=== PATIENT | male | born 1940 | race Caucasian/White ===

== ENCOUNTER → 2016-12-04 | Outpatient (CLI) | payer MEDICARE, BC ==
--- NOTE | 2016-12-04 22:18 | CT ---
EXAMINATION TYPE: CT chest wo con DATE OF EXAM: 12/04/2016 7:39 PM COMPARISON: NONE HISTORY: Cough and congestion. CT DLP: 356.7 mGycm, Automated exposure control for dose reduction was used. CONTRAST: Performed injected with 0 mL of Omnipaque 300. TECHNIQUE: Axial images were obtained at 5 mm thick sections. Reconstructed images are reviewed on [employer] computer in the coronal plane. FINDINGS: Portion of the thyroid visualized is normal. There are small to moderate bilateral pleural effusions. Patchy infiltrates at the lung apices. There are scattered subcentimeter punctate nodules present bilaterally vendor representatives samples could includ e right middle lobe measuring 0.5 cm. Series 4 image 36 and lingula measuring 0.5 cm. Series 4 image 31. Esophagus appears patulous and air filled to the midthoracic level. There are multiple enlarged mediastinal lymph nodes present. Multiple small lymph nodes are in the s uperior mediastinum. Pretracheal lymph nodes appear to be the largest measuring 1.9 and 1.5 cm in siz e. Right peribronchial lymphadenopathy is present lack of intravenous contrast causes limitation on e valuation of this size. Subcarinal lymphadenopathy is present estimated at 1.5 cm. Note is made of coronary artery calcification. The ascending aorta diameter at the level of the main pulmonary artery is 3.9 cm. The main pulmonary artery diameter at the bifurcation is 2.[address] sections are obtained through the upper abdomen. Abdomen is essentially unremarkable. IMPRESSIONS: 1. Enlarged mediastinal adenopathy. Findings can be compatible with metastatic disease. 2. Patchy densities within the lung apices. Underlying neoplasm is not excluded at these levels. 3.Small bilateral pleural effusions with adjacent consolidations. Atelectasis or pneumonia and neopla sm could be considered. 4. Consider PET CT for additional evaluation.
== END | disposition home or self-care (01) ==
LOC: RADCTMAIN 19:05
PROVIDERS: ATTEND Family Medicine
DX: J90 Pleural effusion, not elsewhere classified (principal); R59.0 Localized enlarged lymph nodes; J98.4 Other disorders of lung
CPT/HCPCS: 71250

== ENCOUNTER → 2016-12-05 | Outpatient (CLI) | payer MEDICARE, BC | END | disposition home or self-care (01) | LOC: LABWHC1 09:56 | PROVIDERS: ATTEND Family Medicine | DX: E87.1 Hypo-osmolality and hyponatremia (principal) | CPT/HCPCS: 36415; 82088; 83930; 83935; 84300; 84588 ==

== ENCOUNTER 2016-12-07 07:20 | Inpatient (IN) | payer MEDICARE, BC ==
[2016-12-07] MEDS ORDERED: IPRATROPIUM 0.5 MG/2.5 ML NEBU INHALATION STA (07:43)
[2016-12-07] MEDS ORDERED: ALBUTEROL NEBULIZED 2.5 MG/3 ML INHALATION STA (07:43)
[2016-12-07] MEDS ORDERED: SODIUM CHLORIDE 0.9% 1,000 ML IV STA (07:43)
--- NOTE | 2016-12-07 07:45 | ED ---
General Adult HPI - General Chief complaint: Shortness of Breath Stated complaint: low O2 sent by Time Seen by Provider: 12/07/16 07:27 Source: patient, family, RN notes reviewed, old records reviewed Mode of arrival: wheelchair Limitations: no limitations - History of Present Illness Initial comments: This is a 76-year-old male to the ER for evaluation. This patient presents for evaluation of shortness of breath cough and congestion, severe respiratory distress. Patient brought in with severe hypoxia 60% on room air, patient recently diagnosed with pneumonia placed on oxygen but did not lock or the hospital. Patient is normally very stubborn but states his respirations status. Significantly worsened today. Patient has not been feeling well for about a week but denies chest pain. Patient is Care medical history including CA, - Related Data Home Medications Medication Instructions Recorded Confirmed Aspirin EC [Ecotrin Low Dose] 81 mg PO DAILY 12/07/16 12/07/16 Ferrous Sulfate [Feosol] 325 mg PO DIRECTED 12/07/16 12/07/16 Levothyroxine Sodium [Synthroid] 150 mcg PO DAILY 12/07/16 12/07/16 Ranitidine HCl [Zantac] 75 - 150 mg PO DAILY@1200 12/07/16 12/07/16 cloNIDine 0.2 MG/24HR PATCH 1 patch TRANSDERM MO 12/07/16 12/07/16 [Catapres-TTS] traZODone HCL [Desyrel] 100 mg PO HS PRN 12/07/16 12/07/16 Allergies Allergy/AdvReac Type Severity Reaction Status Date / Time codeine Allergy Unknown Verified 12/07/16 08:52 Review of Systems ROS Statement: Those systems with pertinent positive or pertinent negative responses have been documented in the HPI. ROS Other: All systems not noted in ROS Statement are negative. 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 Absent: scleral icterus, conjunctival injection, periorbital swelling ENT exam: Present: normal exam, mucous membranes moist Neck exam: Present: normal inspection. Absent: tenderness, meningismus, lymphadenopathy Respiratory exam: Present: respiratory distress, wheezes, rales, accessory muscle use, decreased breath sounds, prolonged expiratory. Absent: normal lung sounds bilaterally, rhonchi, stridor Cardiovascular Exam: Present: normal rhythm, tachycardia, normal heart sounds. Absent: systolic murmur, diastolic murmur, rubs, gallop, clicks GI/Abdominal exam: Present: soft, normal bowel sounds. Absent: distended, tenderness, guarding, rebound, rigid Extremities exam: Present: normal inspection, full ROM, normal capillary refill. Absent: tenderness, pedal edema, joint swelling, calf tenderness Back exam: Present: normal inspection Neurological exam: Present: alert, oriented X3, CN II-XII intact Psychiatric exam: Present: normal affect, normal mood Skin exam: Present: warm, dry, intact, normal color. 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 About a month of shortness of breath progressively worsening history of aspiration pneumonia. No known fevers, patient states he hasn't been feeling well, coughing up excessive sputum. Patient does have multifocal pneumonia, we treated with empiric broad-spectrum antibiotics, breathing treatments and monitoring of cardiopulmonary status post resuscitation status - Lab Data Result diagrams: 12/07/16 08:00 12/07/16 08:00 Lab Results 12/07/16 12/07/16 12/07/16 Range/Units 08:00 08:00 08:00 WBC 6.6 (3.8-10.6) k/uL RBC 4.07 L (4.30-5.90) m/uL Hgb 11.1 L (13.0-17.5) gm/dL Hct 32.5 L (39.0-53.0) % MCV 79.9 L (80.0-100.0) fL MCH 27.2 (25.0-35.0) pg MCHC 34.1 (31.0-37.0) g/dL RDW 15.6 H (11.5-15.5) % Plt Count 132 L (150-450) k/uL Neutrophils % 84 % Lymphocytes % 3 % Monocytes % 11 % Eosinophils % 0 % Basophils % 0 % Neutrophils # 5.6 (1.3-7.7) k/uL Lymphocytes # 0.2 L (1.0-4.8) k/uL Monocytes # 0.7 (0-1.0) k/uL Eosinophils # 0.0 (0-0.7) k/uL Basophils # 0.0 (0-0.2) k/uL PT (9.0-12.0) sec INR (<1.1) APTT (22.0-30.0) sec D-Dimer (<0.60) mg/L FEU Sodium 122 L (137-145) mmol/L Potassium 5.1 (3.5-5.1) mmol/L Chloride 86 L (98-107) mmol/L Carbon Dioxide 28 (22-30) mmol/L Anion Gap 8 mmol/L BUN 26 H (9-20) mg/dL Creatinine 0.58 L (0.66-1.25) mg/dL Est GFR (MDRD) Af Amer >60 (>60 ml/min/1.73 sqM) Est GFR (MDRD) Non-Af >60 (>60 ml/min/1.73 sqM) Glucose 150 H (74-99) mg/dL Calcium 8.4 (8.4-10.2) mg/dL Magnesium 1.6 (1.6-2.3) mg/dL Total Bilirubin 1.1 (0.2-1.3) mg/dL AST 26 (17-59) U/L ALT 25 (21-72) U/L Alkaline Phosphatase 76 (38-126) U/L Total Creatine Kinase 28 L (55-170) U/L CK-MB (CK-2) 1.8 (0.0-2.4) ng/mL CK-MB (CK-2) Rel Index 6.4 Troponin I 0.110 H* (0.000-0.034) ng/mL NT-Pro-B Natriuret Pep pg/mL Total Protein 6.5 (6.3-8.2) g/dL Albumin 3.3 L (3.5-5.0) g/dL 12/07/16 12/07/16 Range/Units 08:00 08:00 WBC (3.8-10.6) k/uL RBC (4.30-5.90) m/uL Hgb (13.0-17.5) gm/dL Hct (39.0-53.0) % MCV (80.0-100.0) fL MCH (25.0-35.0) pg MCHC (31.0-37.0) g/dL RDW (11.5-15.5) % Plt Count (150-450) k/uL Neutrophils % % Lymphocytes % % Monocytes % % Eosinophils % % Basophils % % Neutrophils # (1.3-7.7) k/uL Lymphocytes # (1.0-4.8) k/uL Monocytes # (0-1.0) k/uL Eosinophils # (0-0.7) k/uL Basophils # (0-0.2) k/uL PT 10.6 (9.0-12.0) sec INR 1.1 (<1.1) APTT 23.6 (22.0-30.0) sec D-Dimer 1.81 H (<0.60) mg/L FEU Sodium (137-145) mmol/L Potassium (3.5-5.1) mmol/L Chloride (98-107) mmol/L Carbon Dioxide (22-30) mmol/L Anion Gap mmol/L BUN (9-20) mg/dL Creatinine (0.66-1.25) mg/dL Est GFR (MDRD) Af Amer (>60 ml/min/1.73 sqM) Est GFR (MDRD) Non-Af (>60 ml/min/1.73 sqM) Glucose (74-99) mg/dL Calcium (8.4-10.2) mg/dL Magnesium (1.6-2.3) mg/dL Total Bilirubin (0.2-1.3) mg/dL AST (17-59) U/L ALT (21-72) U/L Alkaline Phosphatase (38-126) U/L Total Creatine Kinase (55-170) U/L CK-MB (CK-2) (0.0-2.4) ng/mL CK-MB (CK-2) Rel Index Troponin I (0.000-0.034) ng/mL NT-Pro-B Natriuret Pep 28733 pg/mL Total Protein (6.3-8.2) g/dL Albumin (3.5-5.0) g/dL - Radiology Data Radiology results: report reviewed (Chest x-ray shows positive pneumonitis, bilateral sufficient pulmonary edema as well as multifocal infiltrates, CTA is pending), image reviewed Critical Care Time Critical Care Time: Yes Total Critical Care Time: 31 Disposition Clinical Impression: Community acquired pneumonia, Acute exacerbation of chronic obstructive airways disease, Acute respiratory failure, Aspiration pneumonia, Hypoxia Disposition: ADMITTED IP TO THIS HOSP Condition: Serious Referrals: Abby Bal MD [Primary Care Provider] - 1-2 days
--- NOTE | 2016-12-07 08:11 | XR ---
EXAMINATION TYPE: XR chest 1V portable DATE OF EXAM: 12/07/2016 7:56 AM Comparison: CT 12/04/2016 Clinical History: 76 year-old male shortness of breath Findings: Heart remains upper limits of normal in size. There is increasing interstitial and patchy airspace op acity within the right greater than left lung. Dagcx-hp-oztoheth right and small left pleural effusio ns are also noted with adjacent density. Mild hyperinflation. Impression: Worsening interstitial and patchy airspace disease, right greater than left. Small to moderate right and small left pleural effusions also persist. Some differential considerations include multifocal pn eumonia, atypical mycobacterial and fungal infections, and inflammatory process such as worsening int erstitial pneumonitis. CHF can be excluded clinically.
[2016-12-07 08:20] LABS: Basophils % (A) 0 %; CH 26.6; CHCM 33.5; Eosinophils % (A) 0 %; HCT 32.5 % (39.0-53.0); HDW 3.38; HGB 11.1 gm/dL (13.0-17.5); Luc % (Auto) 2; Lymphocytes # (A) 0.2 k/uL (1.0-4.8); Lymphocytes % (A) 3 %; MCH 27.2 pg (25.0-35.0); MCHC 34.1 g/dL (31.0-37.0); MCV 79.9 fL (80.0-100.0); Mean Platelet Volume 7.2; Monocytes # (A) 0.7 k/uL (0-1.0); Monocytes % (A) 11 %; Neutrophils # (A) 5.6 k/uL (1.3-7.7); Neutrophils % (A) 84 %; RBC 4.07 m/uL (4.30-5.90); RDW 15.6 % (11.5-15.5); WBC 6.6 k/uL (3.8-10.6); WBC (Perox) 6.75
[2016-12-07 08:31] LABS: ALT 25 U/L (21-72); AST 26 U/L (17-59); Alkaline Phosphatase 76 U/L (38-126); Anion Gap 8 mmol/L; Blood Urea Nitrogen 26 mg/dL (9-20); Calcium 8.4 mg/dL (8.4-10.2); Carbon Dioxide 28 mmol/L (22-30); Chloride 86 mmol/L (98-107); Glucose 150 mg/dL (74-99); Magnesium 1.6 mg/dL (1.6-2.3); Non-African American GFR(MDRD) >60 (>60 ml/min/1.73 sqM); Potassium 5.1 mmol/L (3.5-5.1); Sodium 122 mmol/L (137-145); Total Bilirubin 1.1 mg/dL (0.2-1.3); Total Protein 6.5 g/dL (6.3-8.2)
[2016-12-07 08:36] LABS: INR 1.1 (<1.1); Partial Thromboplastin Time 23.6 sec (22.0-30.0); Prothrombin Time 10.6 sec (9.0-12.0)
[2016-12-07] MEDS ORDERED: RX INFO: IV CONTRAST WAS GIVEN 1 EACH MISC MISCELLANE PRN (08:49)
[2016-12-07] MEDS ORDERED: LEVOFLOXACIN 750MG-D5W PMX 750 MG in DEXTROSE/WATER 1 150ML.BAG IVPB STA (08:50)
[2016-12-07] MEDS ORDERED: PIPERACILLIN-TAZOBACTAM 3.375 GM in DEXTROSE/WATER 1 50ML.BAG IVPB STA (08:50)
[2016-12-07 08:58] LABS: Creatine Kinase MB 1.8 ng/mL (0.0-2.4)
[2016-12-07 09:00] LABS: Troponin I 0.11 ng/mL (0.000-0.034)
[2016-12-07] MEDS ORDERED: PNEUMONIA PROTOCOL UTILIZED 1 EACH MISC PO PRN (09:15)
[2016-12-07] MEDS ORDERED: MORPHINE SULFATE 4 MG/ML SYRINGE IVP STA (10:01)
--- NOTE | 2016-12-07 10:36 | CT ---
EXAMINATION TYPE: CT angio chest DATE OF EXAM: 12/07/2016 9:54 AM COMPARISON: Prior CT chest without contrast December 04, 2016 HISTORY: Low O2 level with pain in lungs CT DLP: 307.6 mGycm. Automated Exposure Control for Dose Reduction was Utilized. CONTRAST: CTA scan of the thorax is performed with IV Contrast, patient injected with 96 mL of Omnipaque 350, p ulmonary embolism protocol. MIP Images are created on CT scanner and reviewed. FINDINGS: LUNGS: There is persistent small to moderate-sized right and small left sided pleural effusion. There is associated atelectasis and/or consolidation in both lung bases redemonstrated. Effusions do not c ompletely layer dependently especially on the right similar to prior study Is patent. There is increa sing predominantly central multifocal groundglass opacity in bilateral upper lobes noted since prior study. Slightly more prominent increased interstitial markings are seen bilaterally suspect component of edema MEDIASTINUM: There is satisfactory enhancement of the pulmonary artery and its branches, there is no CT evidence for pulmonary embolism. There are persistent enlarged thoracic lymph nodes. There is rig ht paratracheal lymph node measuring 2.1 x 1.4 cm on axial image 55 that is stable for reference. The se may reactive in etiology, neoplastic etiology is not excluded. No significant pericardial effusion is seen. There is mild cardiomegaly redemonstrated aneurysmal norman nge to the ascending aorta measures 4.8 cm in diameter on axial image [address] udy. Moderate calcified atherosclerotic change is redemonstrated. Upper esophagus is slightly promine nt with air-fluid level. Coronary artery calcification redemonstrated OTHER: Osseous structures are somewhat demineralized. Multilevel spurring in the spine is present. IMPRESSION: 1. No CT evidence for pulmonary embolism. 2. Small to moderate sized bilateral pleural effusions redemonstrated, component of CHF exacerbation not excluded. 3. Interstitial edema bilaterally with worsening multifocal groundglass opacity particularly central upper lung is suggesting worsening edema and/or infiltrates. Clinical correlation advised.
[2016-12-07] MEDS: IPRATROPIUM-ALBUTEROL 3 ML NEB INHALATION SCH ×3 (11:37→19:58)
[2016-12-07] MEDS ORDERED: IPRATROPIUM-ALBUTEROL 3 ML NEB INHALATION PRN (14:25)
--- NOTE | 2016-12-07 14:27 | P.HPIM ---
History of Present Illness H&P Date: 12/07/16 Chief Complaint: Shortness of breath This is a 76-year-old male, patient of Dr. Avina. 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 He also has a history of hypertension hypothyroidism GERD and iron deficiency anemia. Due to his epiglottis cancer patient does require tube feedings and those will be restarted. Patient has had multiple episodes of pneumonia. He's had 8 episodes pneumonia within the last 2 years. Patient was diagnosed with pneumonia on the outpatient setting couple weeks ago he underwent treatment of Cipro for 10 days and then was started on a Z-Andrew. Patient also did require to be placed on home oxygen and this was started yesterday. Initially started with 2 L. However patient's oxygen saturation was down in the around 60%. And she came into the emergency room for further evaluation and treatment. In the emergency room patient's oxygen saturation was 60% on room air. He's currently on 6 L nasal cannula standing and 95%. Chest x-ray had shown worsening patchy airspace disease right greater than the left a small to moderate right pleural effusion. He did have a CTA of the chest which was negative for PE and showed small to moderate-sized pleural effusions bilaterally. Also interstitial edema bilaterally with worsening multifocal groundglass opacity particularly central upper lung suggestive of worsening edema and or infiltrates. Patient has been started on Levaquin and Zosyn for pneumonia. Cardiology and pulmonary service have been consulted. BNP level was elevated at 17,800. Patient reports that his family doctor was going to start him on Lasix outpatient. However he was not able to start that medication. Sodium level of 122 patient reports having low sodium level in the outpatient setting recently. Patient admits to having a productive cough especially in the morning. Denies any nausea or vomiting. Denies any chills or sweats. Denies any bowel movement changes or urinary symptoms. Patient states he had an evaluation by Dr. Dean the urologist in regards to elevated PSA level there is concerns that his cancer is now moved to the prostate. And they're setting up appointment outpatient for a biopsy. 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 Past Psychological History: No Psychological Hx Reported Additional Psychological History / Comment(s): Pt resides with his spouse. He uses no assistive device. He drives. His spouse manages his medication. Smoking Status: Former smoker Past Alcohol Use History: None Reported Additional Past Alcohol Use History / Comment(s): Pt started smoking in 1951 and quit in 2001. Past Drug Use History: None Reported - Past Family History Mother Family Medical History: No Reported History Additional Family Medical History / Comment(s): Mother was healthy and lived to be 89yrs old. Father Additional Family Medical History / Comment(s): Father was healthy until he fractured his hip in his 70's. Medications and Allergies Home Medications Medication Instructions Recorded Confirmed Type Aspirin EC [Ecotrin Low Dose] 81 mg PO DAILY 12/07/16 12/07/16 History Ferrous Sulfate [Feosol] 325 mg PO DIRECTED 12/07/16 12/07/16 History Levothyroxine Sodium [Synthroid] 150 mcg PO DAILY 12/07/16 12/07/16 History Ranitidine HCl [Zantac] 75 - 150 mg PO DAILY@1200 12/07/16 12/07/16 History cloNIDine 0.2 MG/24HR PATCH 1 patch TRANSDERM MO 12/07/16 12/07/16 History [Catapres-TTS] traZODone HCL [Desyrel] 100 mg PO HS PRN 12/07/16 12/07/16 History Allergies Allergy/AdvReac Type Severity Reaction Status Date / Time codeine Allergy Unknown Verified 12/07/16 08:52 Physical Exam Vitals: Vital Signs Temp Pulse Pulse Resp BP BP Pulse Ox 12/07/16 12:00 96.9 F L 93 16 182/79 93 L 12/07/16 11:47 108 H 12/07/16 11:37 98 95 12/07/16 10:31 98.0 F 12/07/16 10:28 104 H 18 163/72 95 12/07/16 09:03 98.4 F 106 H 18 185/79 93 L 12/07/16 08:47 110 H 12/07/16 08:43 110 H 18 196/88 95 12/07/16 08:33 108 H 12/07/16 08:15 102 H 12/07/16 07:45 20 12/07/16 07:41 118 H 18 199/88 91 L 12/07/16 07:26 99.0 F 115 H 24 128/60 68 L Intake and Output 12/06/16 12/07/16 12/07/16 22:59 06:59 14:59 Other: Weight 73.936 kg Patient Weight 12/08/16 06:59 Weight 73.936 kg Head normocephalic Neck supple Lungs crackles at bases bilaterally with coarse breath sounds on the left diminished bilaterally at the upper lung auguste Heart regular rate and rhythm S1-S2, no rub or gallop Abdomen is soft nontender nondistended positive bowel sounds no hepatosplenomegaly Extremities no edema Neuro alert and orientated to 3 Results CBC & Chem 7: 12/07/16 08:00 12/07/16 08:00 Labs: Abnormal Lab Results - Last 24 Hours (Table) 12/07/16 12/07/16 12/07/16 Range/Units 08:00 08:00 08:00 RBC 4.07 L (4.30-5.90) m/uL Hgb 11.1 L (13.0-17.5) gm/dL Hct 32.5 L (39.0-53.0) % MCV 79.9 L (80.0-100.0) fL RDW 15.6 H (11.5-15.5) % Plt Count 132 L (150-450) k/uL Lymphocytes # 0.2 L (1.0-4.8) k/uL D-Dimer (<0.60) mg/L FEU Sodium 122 L (137-145) mmol/L Chloride 86 L (98-107) mmol/L BUN 26 H (9-20) mg/dL Creatinine 0.58 L (0.66-1.25) mg/dL Glucose 150 H (74-99) mg/dL Total Creatine Kinase 28 L (55-170) U/L Troponin I 0.110 H* (0.000-0.034) ng/mL Albumin 3.3 L (3.5-5.0) g/dL 12/07/16 Range/Units 08:00 RBC (4.30-5.90) m/uL Hgb (13.0-17.5) gm/dL Hct (39.0-53.0) % MCV (80.0-100.0) fL RDW (11.5-15.5) % Plt Count (150-450) k/uL Lymphocytes # (1.0-4.8) k/uL D-Dimer 1.81 H (<0.60) mg/L FEU Sodium (137-145) mmol/L Chloride (98-107) mmol/L BUN (9-20) mg/dL Creatinine (0.66-1.25) mg/dL Glucose (74-99) mg/dL Total Creatine Kinase (55-170) U/L Troponin I (0.000-0.034) ng/mL Albumin (3.5-5.0) g/dL Thrombosis Risk Factor Assmnt - Choose All That Apply Any of the Below Risk Factors Present?: Yes Each Factor Represents 1 point: Serious lung disease incl. pneumonia (< 1month) Other Risk Factors: Yes Each Risk Factor Represents 2 Points: Malignancy Each Risk Factor Represents 3 Points: Age 75 years or older Other congenital or acquired thrombophilia - If yes, enter type in comment: No Thrombosis Risk Factor Assessment Total Risk Factor Score: 6 Thrombosis Risk Factor Assessment Level: High Risk Assessment and Plan Plan: 1. Acute hypoxic respiratory failure with oxygen saturation at 60% on room air. Currently on 6 L sating at 95%. Likely secondary to pneumonia and CHF exacerbation. CTA was negative for PE. Did show interstitial edema bilaterally worsening multifocal groundglass opacity particularly central upper lung suggesting worsening edema and/or infiltrate. Pulmonary service and cardiology have been consulted. Continue nebulizer treatments. Patient was started on Levaquin and Zosyn. Check sputum culture. 2. Acute CHF exacerbation: Check echo. BNP elevated at 17,800. Patient was started on IV Lasix 3. Hyponatremia sodium 122 on admission: Repeat labs in a.m. and monitor closely 4. 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 Elevated troponin on admission no chest pain. Cardiology will be consulted. Troponin 0.110 EKG had shown sinus tachycardia with PVCs heart rate 116 6. Iron deficiency anemia resume iron supplement 7. Essential hypertension: With accelerated hypertension. Catapres patch has been restarted. The patient will be started on Lasix 8. Hypothyroidism continue Synthroid 9. Elevated PSA level around 14 an outpatient setting. Patient is followed up with urology and they're planning to proceed with biopsy of the prostate at the end of November 29. Nutrition: continue patient's tube feedings. dietitian will be consulted GI prophylaxis Pepcid and DVT prophylaxis Lovenox Time with Patient: Greater than 30 (Greater than 50% of the total time spent in counseling and coordination of care.I performed an examination of the patient and discussed their management with the physician Construction Equipment Mechanic. I have reviewed the Physician Construction Equipment Mechanic's notes and agree with the documented findings and plan of care)
--- NOTE | 2016-12-07 16:03 | P.CNPUL ---
History of Present Illness Consult date: 12/07/16 Reason for consult: hypoxemia, abnormal CXR/CT Chief complaint: Hypoxemia History of present illness: This is a 76-year-old gentleman who presented to the emergency department complaining of shortness of breath and low oxygen. The patient states he is normally on 2 L nasal cannula around the clock at baseline. He states he went and saw his primary care physician for shortness of breath and his O2 saturation was in the 50s. A chest x-ray was done and the patient was told he has "bilateral pneumonia." He was sent to the hospital for further evaluation. The patient denies a history of asthma. He does have a questionable history of COPD. The patient states he had a pulmonary function test done many years ago. He does have a history of esophageal cancer and had chemo and radiation. He does have a PEG tube due to dysphagia. He denies fevers or chills at home. He states he did have some phlegm which was yellow-green in color. He denied a cough. The patient denies any recent aspiration episodes. He states in the past before the PEG tube he did have multiple episodes of aspiration pneumonia. He is also being worked up through his primary care physician for possible prostate cancer. 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 Past Psychological History: No Psychological Hx Reported Additional Psychological History / Comment(s): Pt resides with his spouse. He uses no assistive device. He drives. His spouse manages his medication. Smoking Status: Former smoker Past Alcohol Use History: None Reported Additional Past Alcohol Use History / Comment(s): Pt started smoking in 1952 and quit in 2001. Past Drug Use History: None Reported - Past Family History Mother Family Medical History: No Reported History Additional Family Medical History / Comment(s): Mother was healthy and lived to be 89yrs old. Father Additional Family Medical History / Comment(s): Father was healthy until he fractured his hip in his 70's. Medications and Allergies Home Medications Medication Instructions Recorded Confirmed Type Aspirin EC [Ecotrin Low Dose] 81 mg PO DAILY 12/07/16 12/07/16 History Ferrous Sulfate [Feosol] 325 mg PO DIRECTED 12/07/16 12/07/16 History Levothyroxine Sodium [Synthroid] 150 mcg PO DAILY 12/07/16 12/07/16 History Ranitidine HCl [Zantac] 75 - 150 mg PO DAILY@1200 12/07/16 12/07/16 History cloNIDine 0.2 MG/24HR PATCH 1 patch TRANSDERM MO 12/07/16 12/07/16 History [Catapres-TTS] traZODone HCL [Desyrel] 100 mg PO HS PRN 12/07/16 12/07/16 History Allergies Allergy/AdvReac Type Severity Reaction Status Date / Time codeine Allergy Unknown Verified 12/07/16 08:52 Physical Exam Osteopathic Statement: *. No significant issues noted on an osteopathic structural exam other than those noted in the History and Physical/Consult. Vitals: Vital Signs Temp Pulse Pulse Resp BP BP Pulse Ox 12/07/16 12:00 96.9 F L 93 16 182/79 93 L 12/07/16 11:47 108 H 12/07/16 11:37 98 95 12/07/16 10:31 98.0 F 12/07/16 10:28 104 H 18 163/72 95 12/07/16 09:03 98.4 F 106 H 18 185/79 93 L 12/07/16 08:47 110 H 12/07/16 08:43 110 H 18 196/88 95 12/07/16 08:33 108 H 12/07/16 08:15 102 H 12/07/16 07:45 20 12/07/16 07:41 118 H 18 199/88 91 L 12/07/16 07:26 99.0 F 115 H 24 128/60 68 L Intake and Output 12/07/16 12/07/16 12/07/16 06:59 14:59 22:59 Output Total 590 Balance -590 Output: Urine 590 Other: Weight 73.936 kg Patient Weight 12/08/16 06:59 Weight 73.936 kg Gen.: Patient is alert and oriented 3, no acute distress Cardiovascular: Regular rate and rhythm, S1/S2 Lungs: Coarse breath sounds bilaterally Abdomen: Soft nontender nondistended positive bowel sounds, + PEG tube Extremities: Trace edema Results - Laboratory Findings CBC and BMP: 12/07/16 08:00 12/07/16 08:00 PT/INR, D-dimer PT 10.6 sec (9.0-12.0) 12/07/16 08:00 INR 1.1 (<1.1) 12/07/16 08:00 D-Dimer 1.81 mg/L FEU (<0.60) H 12/07/16 08:00 Abnormal lab findings: Abnormal Labs 12/07/16 12/07/16 12/07/16 08:00 08:00 08:00 RBC 4.07 L Hgb 11.1 L Hct 32.5 L MCV 79.9 L RDW 15.6 H Plt Count 132 L Lymphocytes # 0.2 L D-Dimer Sodium 122 L Chloride 86 L BUN 26 H Creatinine 0.58 L Glucose 150 H Total Creatine Kinase 28 L Troponin I 0.110 H* Albumin 3.3 L 12/07/16 08:00 RBC Hgb Hct MCV RDW Plt Count Lymphocytes # D-Dimer 1.81 H Sodium Chloride BUN Creatinine Glucose Total Creatine Kinase Troponin I Albumin - Diagnostic Findings Chest x-ray: report reviewed, image reviewed CT scan - chest: report reviewed, image reviewed Assessment and Plan Plan: Acute on chronic hypoxic respiratory failure Abnormal CT of the chest, bilateral infiltrates, pneumonitis versus edema versus atypical pneumonia Dysphagia, status post PEG tube History of esophageal cancer, status post chemo and radiation Hyponatremia Elevated troponins Anemia History of tobacco abuse Elevated PSA, ongoing outpatient workup for possible prostate cancer O2 to maintain saturation greater than equal to 88% Antibiotics: Levaquin, Zosyn Solu-Medrol Bronchodilators and Pulmicort Aspiration precautions Sputum, blood, urine cultures IgE, HP panel Diuresis Check echocardiogram Serial chest x-rays Check Legionella, mycoplasma, influenza Consult Dr. Richey per family request for PEG tube issues GI and DVT prophylaxis Repeat CT in 4-6 weeks to ensure clearance, if not clearning, patient may need bronchoscopy. PET scan is not recommended at this time as it is common to have false positive with acute inflammation. Incentive spirometry and pulmonary hygiene Thank you for this consultation we'll continue to follow along
[2016-12-07] MEDS: PIPERACILLIN-TAZOBACTAM 3.375 GM in DEXTROSE/WATER 1 50ML.BAG IVPB SCH (16:26)
[2016-12-07] MEDS: INSULIN LISPRO (humaLOG) 300 UNIT/3 ML VIAL SQ SCH ×2 (17:21→22:12)
[2016-12-07] MEDS: MORPHINE SULFATE 2 MG/ML SYRINGE IVP PRN (17:24)
[2016-12-07] MEDS: methylPREDNISolone SOD SUCCI 40 MG/ML 1 ML VIAL IV SCH (17:25)
[2016-12-07] MEDS: LEVOTHYROXINE 75 MCG TAB PO SCH ×2 (17:26→18:23)
--- NOTE | 2016-12-07 17:30 | P.GSCN ---
History of Present Illness Consult date: 12/07/16 Reason for Consult: Malnutrition History of present illness: Patient is well-known to our service. He is currently scheduled for PEG tube change next week. The patient was admitted with respiratory failure. He is doing better at this time. We were asked to see the patient to evaluate his PEG tube. It is functioning okay but is looking friable and is due for change. 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 Past Psychological History: No Psychological Hx Reported Additional Psychological History / Comment(s): Pt resides with his spouse. He uses no assistive device. He drives. His spouse manages his medication. Smoking Status: Former smoker Past Alcohol Use History: None Reported Additional Past Alcohol Use History / Comment(s): Pt started smoking in 1952 and quit in 2001. Past Drug Use History: None Reported - Past Family History Mother Family Medical History: No Reported History Additional Family Medical History / Comment(s): Mother was healthy and lived to be 89yrs old. Father Additional Family Medical History / Comment(s): Father was healthy until he fractured his hip in his 70's. Medications and Allergies Home Medications Medication Instructions Recorded Confirmed Type Aspirin EC [Ecotrin Low Dose] 81 mg PO DAILY 12/07/16 12/07/16 History Ferrous Sulfate [Feosol] 325 mg PO DIRECTED 12/07/16 12/07/16 History Levothyroxine Sodium [Synthroid] 150 mcg PO DAILY 12/07/16 12/07/16 History Ranitidine HCl [Zantac] 75 - 150 mg PO DAILY@1200 12/07/16 12/07/16 History cloNIDine 0.2 MG/24HR PATCH 1 patch TRANSDERM MO 12/07/16 12/07/16 History [Catapres-TTS] traZODone HCL [Desyrel] 100 mg PO HS PRN 12/07/16 12/07/16 History Allergies Allergy/AdvReac Type Severity Reaction Status Date / Time codeine Allergy Unknown Verified 12/07/16 08:52 Surgical - Exam Vital Signs Temp Pulse Resp BP Pulse Ox 99.0 F 115 H 24 128/60 68 L 12/07/16 07:26 12/07/16 07:26 12/07/16 07:26 12/07/16 07:26 12/07/16 07:26 Physical exam: General: Well-developed, well-nourished HEENT: Normocephalic, sclerae nonicteric Abdomen: Nontender, nondistended, PEG tube intact Extremities: No edema Neuro: Alert and oriented Results - Labs 12/07/16 08:00 12/07/16 08:00 Abnormal Lab Results - Last 24 Hours (Table) 12/07/16 12/07/16 12/07/16 Range/Units 08:00 08:00 08:00 RBC 4.07 L (4.30-5.90) m/uL Hgb 11.1 L (13.0-17.5) gm/dL Hct 32.5 L (39.0-53.0) % MCV 79.9 L (80.0-100.0) fL RDW 15.6 H (11.5-15.5) % Plt Count 132 L (150-450) k/uL Lymphocytes # 0.2 L (1.0-4.8) k/uL D-Dimer (<0.60) mg/L FEU Sodium 122 L (137-145) mmol/L Chloride 86 L (98-107) mmol/L BUN 26 H (9-20) mg/dL Creatinine 0.58 L (0.66-1.25) mg/dL Glucose 150 H (74-99) mg/dL Total Creatine Kinase 28 L (55-170) U/L Troponin I 0.110 H* (0.000-0.034) ng/mL Albumin 3.3 L (3.5-5.0) g/dL 12/07/16 Range/Units 08:00 RBC (4.30-5.90) m/uL Hgb (13.0-17.5) gm/dL Hct (39.0-53.0) % MCV (80.0-100.0) fL RDW (11.5-15.5) % Plt Count (150-450) k/uL Lymphocytes # (1.0-4.8) k/uL D-Dimer 1.81 H (<0.60) mg/L FEU Sodium (137-145) mmol/L Chloride (98-107) mmol/L BUN (9-20) mg/dL Creatinine (0.66-1.25) mg/dL Glucose (74-99) mg/dL Total Creatine Kinase (55-170) U/L Troponin I (0.000-0.034) ng/mL Albumin (3.5-5.0) g/dL Diabetes panel 12/07/16 Range/Units 08:00 Sodium 122 L (137-145) mmol/L Potassium 5.1 (3.5-5.1) mmol/L Chloride 86 L (98-107) mmol/L Carbon Dioxide 28 (22-30) mmol/L BUN 26 H (9-20) mg/dL Creatinine 0.58 L (0.66-1.25) mg/dL Glucose 150 H (74-99) mg/dL Calcium 8.4 (8.4-10.2) mg/dL AST 26 (17-59) U/L ALT 25 (21-72) U/L Alkaline Phosphatase 76 (38-126) U/L Total Protein 6.5 (6.3-8.2) g/dL Albumin 3.3 L (3.5-5.0) g/dL Calcium panel 12/07/16 Range/Units 08:00 Calcium 8.4 (8.4-10.2) mg/dL Albumin 3.3 L (3.5-5.0) g/dL Pituitary panel 12/07/16 Range/Units 08:00 Sodium 122 L (137-145) mmol/L Potassium 5.1 (3.5-5.1) mmol/L Chloride 86 L (98-107) mmol/L Carbon Dioxide 28 (22-30) mmol/L BUN 26 H (9-20) mg/dL Creatinine 0.58 L (0.66-1.25) mg/dL Glucose 150 H (74-99) mg/dL Calcium 8.4 (8.4-10.2) mg/dL Adrenal panel 12/07/16 Range/Units 08:00 Sodium 122 L (137-145) mmol/L Potassium 5.1 (3.5-5.1) mmol/L Chloride 86 L (98-107) mmol/L Carbon Dioxide 28 (22-30) mmol/L BUN 26 H (9-20) mg/dL Creatinine 0.58 L (0.66-1.25) mg/dL Glucose 150 H (74-99) mg/dL Calcium 8.4 (8.4-10.2) mg/dL Total Bilirubin 1.1 (0.2-1.3) mg/dL AST 26 (17-59) U/L ALT 25 (21-72) U/L Alkaline Phosphatase 76 (38-126) U/L Total Protein 6.5 (6.3-8.2) g/dL Albumin 3.3 L (3.5-5.0) g/dL Assessment and Plan (1) Malnutrition Narrative/Plan: Will discuss with pulmonary regarding changing the patient's PEG tube while he is still hospitalized. Continue pulmonary support. Status: Acute
[2016-12-07 18:51] LABS: Hemoglobin A1C 5.5 % (4.2-6.1)
[2016-12-07] MEDS: BUDESONIDE 0.5 MG/2 ML NEBU INHALATION SCH (19:57)
[2016-12-07] MEDS: traZODone HCL 100 MG TAB PO PRN (21:49)
[2016-12-07] MEDS: guaiFENesin 600 MG TABLET.ER PO SCH (21:49)
[2016-12-07] MEDS: FUROSEMIDE 10 MG/ML 4 ML VIAL IV SCH (21:50)
[2016-12-07 22:19] LABS: Glucose,Whole Blood 173 mg/dL (75-99)
[2016-12-08] MEDS: PIPERACILLIN-TAZOBACTAM 3.375 GM in DEXTROSE/WATER 1 50ML.BAG IVPB SCH ×4 (00:24→23:40)
[2016-12-08] MEDS: methylPREDNISolone SOD SUCCI 40 MG/ML 1 ML VIAL IV SCH ×2 (00:24→08:09)
[2016-12-08] MEDS ORDERED: amLODIPine 5 MG TAB PO ONE (05:30)
[2016-12-08 06:19] LABS: Mycoplasma IgG Antibody (EIA) 0.74 INDEX (<=0.90); Mycoplasma IgM Antibody 0.14 INDEX (<=0.90)
[2016-12-08 06:50] LABS: Glucose,Whole Blood 191 mg/dL (75-99)
[2016-12-08 07:14] LABS: Basophils % (A) 0 %; CH 26.4; Eosinophils % (A) 0 %; HCT 35.7 % (39.0-53.0); HDW 3.32; HGB 11.4 gm/dL (13.0-17.5); Hypochromasia Slight; Luc # (Auto) 0.03; Luc % (Auto) 1; Lymphocytes # (A) 0.1 k/uL (1.0-4.8); Lymphocytes % (A) 2 %; MCH 26.5 pg (25.0-35.0); MCHC 31.9 g/dL (31.0-37.0); MCV 83.1 fL (80.0-100.0); Mean Platelet Volume 7.5; Monocytes # (A) 0.3 k/uL (0-1.0); Monocytes % (A) 6 %; Neutrophils # (A) 5.2 k/uL (1.3-7.7); Neutrophils % (A) 91 %; RDW 15.3 % (11.5-15.5); WBC 5.7 k/uL (3.8-10.6); WBC (Perox) 5.63
[2016-12-08 07:34] LABS: ALT 27 U/L (21-72); AST 30 U/L (17-59); Alkaline Phosphatase 73 U/L (38-126); Anion Gap 10 mmol/L; Blood Urea Nitrogen 25 mg/dL (9-20); Calcium 8.3 mg/dL (8.4-10.2); Carbon Dioxide 29 mmol/L (22-30); Chloride 87 mmol/L (98-107); Glucose 235 mg/dL (74-99); Non-African American GFR(MDRD) >60 (>60 ml/min/1.73 sqM); Potassium 4.7 mmol/L (3.5-5.1); Sodium 126 mmol/L (137-145); Total Bilirubin 1.2 mg/dL (0.2-1.3); Total Protein 6.5 g/dL (6.3-8.2)
[2016-12-08] MEDS: INSULIN LISPRO (humaLOG) 300 UNIT/3 ML VIAL SQ SCH ×4 (07:37→23:38)
--- NOTE | 2016-12-08 07:58 | XR ---
EXAMINATION TYPE: XR chest 2V DATE OF EXAM: 12/08/2016 7:32 AM COMPARISON: NONE INDICATION: Pneumonia TECHNIQUE: Single frontal view of the chest is obtained. FINDINGS: The heart size is normal. The pulmonary vasculature is prominent. There is diffuse increased infiltrates present bilaterally. Small pleural effusions may be present. F indings are stable from the comparison. IMPRESSION: 1. Bilateral lung infiltrates. Correlate for pulmonary edema and congestive heart failure. Pneumonia is within the differential.
[2016-12-08] MEDS: FUROSEMIDE 10 MG/ML 4 ML VIAL IV SCH ×3 (08:10→23:40)
[2016-12-08] MEDS: guaiFENesin 600 MG TABLET.ER PO SCH ×2 (08:10→21:04)
[2016-12-08] MEDS: ASPIRIN 81 MG CHEW PO SCH (08:10)
[2016-12-08] MEDS: FAMOTIDINE 20 MG TAB PO SCH (08:10)
[2016-12-08] MEDS: FERROUS SULFATE 325 MG TAB PO SCH (08:10)
[2016-12-08] MEDS: IPRATROPIUM-ALBUTEROL 3 ML NEB INHALATION SCH ×2 (08:47→11:55)
[2016-12-08] MEDS: BUDESONIDE 0.5 MG/2 ML NEBU INHALATION SCH ×2 (08:47→19:45)
[2016-12-08] MEDS ORDERED: amLODIPine 5 MG TAB PO SCH (09:00)
[2016-12-08] MEDS ORDERED: ENOXAPARIN 40 MG/0.4 ML SYRINGE SQ SCH (09:00)
[2016-12-08] MEDS: MORPHINE SULFATE 2 MG/ML SYRINGE IVP PRN (09:11)
--- NOTE | 2016-12-08 09:53 | ECHOF ---
Referral Reason:check EF MEASUREMENTS -------- HEIGHT: 180.3 cm WEIGHT: 73.9 kg BP: 182/79 RVIDd: 2.7 cm (< 3.3) IVSd: 1.4 cm (0.6 - 1.1) LVIDd: 4.7 cm (3.9 - 5.3) LVPWd: 1.4 cm (0.6 - 1.1) IVSs: 1.6 cm LVIDs: 3.8 cm LVPWs: 1.7 cm LA Diam: 3.0 cm (2.7 - 3.8) Ao Diam: 4.1 cm (2.0 - 3.7) AV Cusp: 1.8 cm (1.5 - 2.6) LA Diam: 2.9 cm (2.7 - 3.8) MV EXCURSION: 19.197 mm (> 18.000) MV EF SLOPE: 178 mm/s (70 - 150) EPSS: 1.1 cm MV E Bari: 0.92 m/s MV DecT: 208 ms MV A Bari: 0.38 m/s MV E/A Ratio: 2.43 AV maxP.23 mmHg AV meanP.17 mmHg RAP: 5.00 mmHg RVSP: 45.44 mmHg FINDINGS -------- Resting tachycardia (HR>100bpm). This was a technically adequate study. The left ventricular size is normal. There is moderate concentric left ventricular hypertrophy. Overall left ventricular systolic function is mildly impaired with, an EF between 45 - 50 %. Inferiorlateral Hypokinesis. This study is technically suboptimal for optimal assessment of the LV function. Recommended repeat study with contrast. The right ventricle is normal in size and function. The left atrial size is normal. The right atrium is normal in size. There is mild aortic valve sclerosis. There is mild aortic regurgitation. Peak/mean gradient across the Aortic Valve is 13.23mmHg / 6.17mmHg. The mitral valve leaflets are mildly thickened. Moderate mitral annular calcification present. Mild mitral regurgitation is present. Mild tricuspid regurgitation present. There is mild pulmonary hypertension. The right ventricular systolic pressure, as measured by Doppler, is 45.44mmHg. The pulmonic valve was not well visualized. The aortic root is dilated measuring 4.1cm. There is no pericardial effusion. CONCLUSIONS -------- 1. Resting tachycardia (HR>100bpm). 2. There is mild aortic regurgitation. 3. Peak/mean gradient across the Aortic Valve is 13.23mmHg / 6.17mmHg. 4. The mitral valve leaflets are mildly thickened. 5. Moderate mitral annular calcification present. 6. Mild mitral regurgitation is present. 7. Mild tricuspid regurgitation present. 8. There is mild pulmonary hypertension. 9. The right ventricular systolic pressure, as measured by Doppler, is 45.44mmHg. 10. The pulmonic valve was not well visualized. 11. The aortic root is dilated measuring 4.1cm. 12. This was a technically adequate study. 13. There is no pericardial effusion. 14. The left ventricular size is normal. 15. There is moderate concentric left ventricular hypertrophy. 16. Inferiorlateral Hypokinesis 17. This study is technically suboptimal for optimal assessment of the LV function. Recommended repeat study with contrast. 18. The right ventricle is normal in size and function. 19. The left atrial size is normal. 20. There is mild aortic valve sclerosis. ENGINE CLEANER: Janett Child RDCS
--- NOTE | 2016-12-08 11:27 | ECHOF ---
Referral Reason:CP MEASUREMENTS -------- HEIGHT: 180.3 cm WEIGHT: 74.4 kg BP: 193/90 IVSd: 1.4 cm (0.6 - 1.1) LVIDd: 5.1 cm (3.9 - 5.3) LVPWd: 1.4 cm (0.6 - 1.1) IVSs: 1.5 cm LVIDs: 4.2 cm LVPWs: 1.8 cm FINDINGS -------- Limited Study Overall left ventricular systolic function is mild-moderately impaired with, an EF between 40 - 45 %. Inferiorlateral Hypokinesis Mild tricuspid regurgitation present. There is moderate pulmonary hypertension. The right ventricular systolic pressure, as measured by Doppler, is {RVSP}. There is a small pericardial effusion located near the left ventricle. CONCLUSIONS -------- 1. Limited Study 2. Overall left ventricular systolic function is mild-moderately impaired with, an EF between 40 - 45 %. 3. Inferiorlateral Hypokinesis 4. Mild tricuspid regurgitation present. 5. There is moderate pulmonary hypertension. 6. The right ventricular systolic pressure, as measured by Doppler, is {RVSP}. 7. There is a small pericardial effusion located near the left ventricle. ASSISTANT ASSOCIATE PROFESSOR: Janett Child RDCS
--- NOTE | 2016-12-08 11:28 | P.PN ---
Subjective Principal diagnosis: Malnutrition Patient had tachycardia and shortness of breath last night. He does feel better today. Denies abdominal pain. Objective - Vital Signs Vital signs: Vital Signs Temp 97.1 F L 12/08/16 08:00 Pulse 120 H 12/08/16 08:57 Resp 16 12/08/16 08:00 BP 193/90 12/08/16 08:00 Pulse Ox 97 12/08/16 08:40 Intake & Output 12/07/16 12/08/16 12/08/16 18:59 06:59 18:59 Intake Total 1520 Output Total 590 300 Balance -590 1220 Weight 73.936 kg 74.5 kg Intake: IV 900 Sodium Chloride 0.9% 1, 900 000 ml @ 100 mls/hr IV . Q10H STA Rx#:[id number] Tube Feeding 620 Output: Urine 590 300 Other: Voiding Method Urinal Urinal # Voids 0 - Exam Abdomen: Soft, nondistended, PEG tube intact with some evidence of chronic where - Labs CBC & Chem 7: 12/08/16 06:59 12/08/16 06:59 Labs: Abnormal Lab Results - Last 24 Hours (Table) 12/07/16 12/08/16 12/08/16 Range/Units 21:59 06:22 06:59 Hgb 11.4 L (13.0-17.5) gm/dL Hct 35.7 L (39.0-53.0) % Plt Count 135 L (150-450) k/uL Lymphocytes # 0.1 L (1.0-4.8) k/uL Sodium (137-145) mmol/L Chloride (98-107) mmol/L BUN (9-20) mg/dL Creatinine (0.66-1.25) mg/dL Glucose (74-99) mg/dL POC Glucose (mg/dL) 173 H 191 H (75-99) mg/dL Calcium (8.4-10.2) mg/dL Albumin (3.5-5.0) g/dL 12/08/16 Range/Units 06:59 Hgb (13.0-17.5) gm/dL Hct (39.0-53.0) % Plt Count (150-450) k/uL Lymphocytes # (1.0-4.8) k/uL Sodium 126 L (137-145) mmol/L Chloride 87 L (98-107) mmol/L BUN 25 H (9-20) mg/dL Creatinine 0.58 L (0.66-1.25) mg/dL Glucose 235 H (74-99) mg/dL POC Glucose (mg/dL) (75-99) mg/dL Calcium 8.3 L (8.4-10.2) mg/dL Albumin 3.3 L (3.5-5.0) g/dL Microbiology - Last 24 Hours (Table) 12/07/16 08:00 Blood Culture - Preliminary Blood No Growth after 24 hours 12/07/16 16:18 Gram Stain - Preliminary Sputum Assessment and Plan (1) Malnutrition Narrative/Plan: Continue medical support. Consider PEG tube exchange when clinically improved. Status: Acute
[2016-12-08 11:47] LABS: Glucose,Whole Blood 110 mg/dL (75-99)
[2016-12-08] MEDS: LEVOFLOXACIN 750MG-D5W PMX 750 MG in DEXTROSE/WATER 1 150ML.BAG IVPB SCH (12:28)
[2016-12-08] MEDS: methylPREDNISolone SOD SUCCI 125 MG/2 ML VIAL IV SCH ×3 (12:28→23:39)
--- NOTE | 2016-12-08 13:43 | P.CONS ---
History of Present Illness - Reason for Consult Consult date: 12/08/16 Pneumonia - History of Present Illness This is a 76-year-old male who has a significant past history of esophageal cancer status post chemotherapy and radiation therapy with PEG tube in place. Patient is also being worked up for possible prostate cancer. Patient states he was treated in [place] for esophageal cancer. Patient states that 2 weeks ago he started having increased phlegm and he normally is able to suck out the sputum in the morning and evening but he's had increased most recently. 2 days ago he started using oxygen which he normally does not use. 3 weeks ago he was placed on antibiotics which he does not recall the name and completed this course. Despite use of oxygen, patient continued to have significant dyspnea with cough congestion and sputum production. Apparently his pulse ox was 60% and he came into [facility] emergency center for evaluation. He was afebrile but tachycardic and hypertensive. White count is 6.6, and electrolyte abnormalities with hyponatremia and hyperchloremia. Kidney function was within normal limits. Troponin was 0.110. ProBNP was 17,800. Albumin was noted to be 3.3. He underwent a chest x-ray that showed worsening interstitial opacity airspace disease right greater than left. Small to moderate right and small left pleural effusion persist. His d- dimer was elevated at 1.81 and he underwent a CAT scan of the chest that showed no pulmonary embolism. Small to moderate bilateral pleural effusions. Interstitial edema bilaterally with worsening multifocal groundglass opacity of either edema and or infiltrate. Influenza testing a and B were negative. Mycoplasma pneumonia IgG and IgM were negative. Blood cultures status received. Sputum cultures in progress. Echocardiogram has been done and report is pending. Legionella and hypersensitivity panel are in process. Last evening his pulse ox was 86% on 2 L nasal cannula and he was placed on a nonrebreather mask with improvement. Multiple consultants in place including pulmonary medicine, cardiology, and general surgery is on regarding PEG tube replacement. Review of Systems All systems: negative Constitutional: Denies chills, Denies fever Eyes: denies blurred vision, denies pain Ears, nose, mouth and throat: Denies headache, Denies sore throat Cardiovascular: Reports decreased exercise tolerance, Reports dyspnea on exertion, Reports shortness of breath, Denies chest pain, Denies leg edema Respiratory: Reports cough, Reports cough with sputum, Reports dyspnea, Reports excessive sputum, Reports home oxygen Gastrointestinal: Denies abdominal pain, Denies diarrhea, Denies nausea, Denies vomiting Musculoskeletal: Denies myalgias Integumentary: Denies pruritus, Denies rash Neurological: Denies numbness, Denies weakness Psychiatric: Denies anxiety, Denies depression Endocrine: Denies fatigue, Denies weight change Past Medical History Past Medical History: Cancer, Pneumonia, Thyroid Disorder Additional Past Medical History / Comment(s): Esophageal CA status post chemotherapy and radiation therapy treated in [place] History of Any Multi-Drug Resistant Organisms: None Reported Additional Past Surgical History / Comment(s): J-tube Past Anesthesia/Blood Transfusion Reactions: No Reported Reaction Additional Past Anesthesia/Blood Transfusion Reaction / Comm: Pt is not sure, but thinks he may have received blood once without reaction. Past Psychological History: No Psychological Hx Reported Additional Psychological History / Comment(s): Pt resides with his spouse. He uses no assistive device. He drives. His spouse manages his medication. Smoking Status: Former smoker Past Alcohol Use History: None Reported Additional Past Alcohol Use History / Comment(s): Pt started smoking in 1951 and quit in 2001. There are 2 dogs in the home. Patient is retired from [employer]. Past Drug Use History: None Reported - Past Family History Mother Family Medical History: No Reported History Additional Family Medical History / Comment(s): Mother was healthy and lived to be 89yrs old. Father Additional Family Medical History / Comment(s): Father was healthy until he fractured his hip in his 70's. Medications and Allergies Home Medications Medication Instructions Recorded Confirmed Type Aspirin EC [Ecotrin Low Dose] 81 mg PO DAILY 12/07/16 12/07/16 History Ferrous Sulfate [Feosol] 325 mg PO DIRECTED 12/07/16 12/07/16 History Levothyroxine Sodium [Synthroid] 150 mcg PO DAILY 12/07/16 12/07/16 History Ranitidine HCl [Zantac] 75 - 150 mg PO DAILY@1200 12/07/16 12/07/16 History cloNIDine 0.2 MG/24HR PATCH 1 patch TRANSDERM MO 12/07/16 12/07/16 History [Catapres-TTS] traZODone HCL [Desyrel] 100 mg PO HS PRN 12/07/16 12/07/16 History Allergies Allergy/AdvReac Type Severity Reaction Status Date / Time codeine Allergy Unknown Verified 12/07/16 08:52 Physical Exam Vitals: Vital Signs Temp Pulse Pulse Resp BP BP Pulse Ox 12/08/16 08:57 120 H 12/08/16 08:40 116 H 97 12/08/16 08:00 97.1 F L 120 H 16 193/90 99 12/08/16 06:19 134 H 20 204/98 98 12/08/16 05:56 134 H 20 207/103 97 12/08/16 05:36 213/116 97 12/08/16 04:00 121 H 20 208/75 86 L 12/08/16 00:00 97.6 F 100 18 212/92 94 L 12/07/16 20:19 120 H 12/07/16 20:00 97.9 F 124 H 18 200/93 91 L 12/07/16 19:59 120 H 12/07/16 16:16 104 H 12/07/16 16:02 103 H 94 L 12/07/16 16:00 115 H 16 185/84 90 L 12/07/16 12:00 96.9 F L 93 16 182/79 93 L 12/07/16 11:47 108 H 12/07/16 11:37 98 95 12/07/16 10:31 98.0 F 12/07/16 10:28 104 H 18 163/72 95 Intake and Output 12/07/16 12/08/16 12/08/16 22:59 06:59 14:59 Intake Total 140 1380 Output Total 300 Balance 140 1080 Intake: IV 900 Sodium Chloride 0.9% 1, 900 000 ml @ 100 mls/hr IV . Q10H STA Rx#:[id number] Tube Feeding 140 480 Output: Urine 300 Other: Voiding Method Urinal Urinal # Voids 0 0 Weight 74.5 kg Gen: This is a 76-year-old male. He is sitting up in bed and appears to be in no acute distress while on a nonrebreather mask. He appears to be comfortable. Speech is difficult to understand. HEENT: Head is atraumatic, normocephalic. Pupils equal, round. Sclerae is anicteric. NECK: Supple. No JVD. No lymphadenopathy. No thyromegaly. LUNGS: Coarse rhonchi bilaterally. No intercostal retractions. HEART: Regular rate and rhythm. No murmur. ABDOMEN: Soft. Bowel sounds are present. No masses. No tenderness. PEG tube noted to the epigastric area with no signs of drainage, infection, tenderness. EXTREMITIES: No pedal edema. No calf tenderness. Dorsalis pedis +2 bilaterally. NEUROLOGICAL: Patient is awake, alert and oriented x3. Cranial nerves 2 through 12 are grossly intact. Results Results: Laboratory Results WBC 5.7 k/uL (3.8-10.6) 12/08/16 06:59 RBC 4.30 m/uL (4.30-5.90) 12/08/16 06:59 Hgb 11.4 gm/dL (13.0-17.5) L 12/08/16 06:59 Hct 35.7 % (39.0-53.0) L 12/08/16 06:59 MCV 83.1 fL (80.0-100.0) 12/08/16 06:59 MCH 26.5 pg (25.0-35.0) 12/08/16 06:59 MCHC 31.9 g/dL (31.0-37.0) 12/08/16 06:59 RDW 15.3 % (11.5-15.5) 12/08/16 06:59 Plt Count 135 k/uL (150-450) L 12/08/16 06:59 Neutrophils % 91 % 12/08/16 06:59 Lymphocytes % 2 % 12/08/16 06:59 Monocytes % 6 % 12/08/16 06:59 Eosinophils % 0 % 12/08/16 06:59 Basophils % 0 % 12/08/16 06:59 Neutrophils # 5.2 k/uL (1.3-7.7) 12/08/16 06:59 Lymphocytes # 0.1 k/uL (1.0-4.8) L 12/08/16 06:59 Monocytes # 0.3 k/uL (0-1.0) 12/08/16 06:59 Eosinophils # 0.0 k/uL (0-0.7) 12/08/16 06:59 Basophils # 0.0 k/uL (0-0.2) 12/08/16 06:59 Hypochromasia Slight 12/08/16 06:59 PT 10.6 sec (9.0-12.0) 12/07/16 08:00 INR 1.1 (<1.1) 12/07/16 08:00 APTT 23.6 sec (22.0-30.0) 12/07/16 08:00 D-Dimer 1.81 mg/L FEU (<0.60) H 12/07/16 08:00 Sodium 126 mmol/L (137-145) L 12/08/16 06:59 Potassium 4.7 mmol/L (3.5-5.1) 12/08/16 06:59 Chloride 87 mmol/L (98-107) L 12/08/16 06:59 Carbon Dioxide 29 mmol/L (22-30) 12/08/16 06:59 Anion Gap 10 mmol/L 12/08/16 06:59 BUN 25 mg/dL (9-20) H 12/08/16 06:59 Creatinine 0.58 mg/dL (0.66-1.25) L 12/08/16 06:59 Est GFR (MDRD) Af Amer >60 (>60 ml/min/1.73 sqM) 12/08/16 06:59 Est GFR (MDRD) Non-Af >60 (>60 ml/min/1.73 sqM) 12/08/16 06:59 Glucose 235 mg/dL (74-99) H 12/08/16 06:59 POC Glucose (mg/dL) 110 mg/dL (75-99) H 12/08/16 11:45 POC Glu Gin Feeder ID Brittnee Feldman 12/08/16 11:[address] Glu mg/dL 111 mg/dL 12/07/16 08:00 Hemoglobin A1c 5.5 % (4.2-6.1) 12/07/16 08:00 Calcium 8.3 mg/dL (8.4-10.2) L 12/08/16 06:59 Magnesium 1.6 mg/dL (1.6-2.3) 12/07/16 08:00 Total Bilirubin 1.2 mg/dL (0.2-1.3) 12/08/16 06:59 AST 30 U/L (17-59) 12/08/16 06:59 ALT 27 U/L (21-72) 12/08/16 06:59 Alkaline Phosphatase 73 U/L (38-126) 12/08/16 06:59 Total Creatine Kinase 28 U/L (55-170) L 12/07/16 08:00 CK-MB (CK-2) 1.8 ng/mL (0.0-2.4) 12/07/16 08:00 CK-MB (CK-2) Rel Index 6.4 12/07/16 08:00 Troponin I 0.110 ng/mL (0.000-0.034) H* 12/07/16 08:00 NT-Pro-B Natriuret Pep 23598 pg/mL 12/07/16 08:00 Total Protein 6.5 g/dL (6.3-8.2) 12/08/16 06:59 Albumin 3.3 g/dL (3.5-5.0) L 12/08/16 06:59 IgE 42.10 IU/mL (0.00-114.00) 12/07/16 08:00 Influenza Type A RNA Not Detected (Not Detectd) 12/07/16 17:30 Influenza Type B (PCR) Not Detected (Not Detectd) 12/07/16 17:30 Mycoplasma pneumon IgG 0.74 INDEX (<=0.90) 12/07/16 08:00 Mycoplasma pneumon IgM 0.14 INDEX (<=0.90) 12/07/16 08:00 CBC & Chem 7: 12/15/16 08:04 12/15/16 08:04 Labs: Abnormal Lab Results - Last 24 Hours (Table) 12/07/16 12/08/16 12/08/16 Range/Units 21:59 06:22 06:59 Hgb 11.4 L (13.0-17.5) gm/dL Hct 35.7 L (39.0-53.0) % Plt Count 135 L (150-450) k/uL Lymphocytes # 0.1 L (1.0-4.8) k/uL Sodium (137-145) mmol/L Chloride (98-107) mmol/L BUN (9-20) mg/dL Creatinine (0.66-1.25) mg/dL Glucose (74-99) mg/dL POC Glucose (mg/dL) 173 H 191 H (75-99) mg/dL Calcium (8.4-10.2) mg/dL Albumin (3.5-5.0) g/dL 12/08/16 Range/Units 06:59 Hgb (13.0-17.5) gm/dL Hct (39.0-53.0) % Plt Count (150-450) k/uL Lymphocytes # (1.0-4.8) k/uL Sodium 126 L (137-145) mmol/L Chloride 87 L (98-107) mmol/L BUN 25 H (9-20) mg/dL Creatinine 0.58 L (0.66-1.25) mg/dL Glucose 235 H (74-99) mg/dL POC Glucose (mg/dL) (75-99) mg/dL Calcium 8.3 L (8.4-10.2) mg/dL Albumin 3.3 L (3.5-5.0) g/dL Microbiology - Last 24 Hours (Table) 12/07/16 16:18 Gram Stain - Preliminary Sputum Assessment and Plan Plan: This is a 76-year-old male who presented to the hospital with acute hypoxic respiratory failure, possible pneumonia, hyponatremia. Patient is currently on Levaquin, Zosyn and vancomycin. Legionella and hypersensitivity panel are pending. Sputum and blood cultures are in progress. Mycoplasma pneumonia negative. Continue supportive care. Further recommendations as patient progresses. The above dictated assessment and findings were discussed with Dr. Suarez. The impression and plan of care have been directed as dictated. Marybel Lyons nurse practitioner acting as scribe for Dr. Suarez.
--- NOTE | 2016-12-08 15:04 | PN ---
DATE OF SERVICE: 12/08/2016 Patient is a 76-year-old male who is seen sitting up in bed, patient is awake and alert. He is requiring high dose oxygen to maintain sats greater than 90%, initially was on 15 L high flow and then was placed on 100% nonrebreather; however, he feels that is more comfortable but he is sating up to 100%. We will wean it back down. Patient is also tachycardic with the high blood pressure. Cardiology is on consult. Patient has been added a dose of Norvasc, will consider increasing that and increasing the Lasix, continue the Catapres. VITAL SIGNS: Temp is 97.1, heart rate 118, respiratory rate 16, blood pressure is 193/90. O2 sats 97% on 15 L high-flow. HEENT: Head is normocephalic, atraumatic. Neck is supple. Trachea is midline. Lungs with diminished breath sounds and a few scattered rales. HEART: S1 and S2 are heard, tachycardic. ABDOMEN: Soft. Bowel sounds are heard. Extremities with no edema. NEUROLOGIC: Patient is awake, alert, oriented. LABS: White count is 5.7, hemoglobin is 11.4, hematocrit is 35.7, with 135,000 platelets. Sodium 126, potassium is 4.7, chloride is 87, CO2 is 29. Anion gap is 10. BUN is 25, creatinine 0.58, glucose is 235. Calcium is 8.3. Total bilirubin 1.2. AST is 30, ALT is 27, alk phos is 73. Total protein 6.5. Albumin is 3.3. IMAGING: A chest x-ray done this a.m. shows bilateral lung infiltrates; correlate for pulmonary edema and congestive heart failure. Pneumonia is within the differential. Limited views of an echocardiogram done this a.m. shows left ventricular systolic function is mild to moderately impaired with an EF between 40% and 45%, inferior lateral hypokinesis, mild tricuspid regurg, moderate pulmonary hypertension with a small pericardial effusion located near the left ventricle. IMPRESSION: 1. Acute on chronic hypoxic respiratory failure. 2. Abnormal CT of the chest, bilateral infiltrates, pneumonitis versus edema versus atypical pneumonia. 3. Dysphagia, status post PEG tube. 4. History of esophageal cancer, status post chemo and radiation. 5. Hyponatremia. 6. Elevated troponins. 7. Anemia. 8. History of tobacco abuse. 9. Elevated PSA, ongoing outpatient work-up for possible prostate cancer. 10. [id number] pulmonary hypertension. PLAN: Continue current medications which have been reviewed. Continue oxygen to maintain sats greater than or equal to 88%. Continue IV antibiotics. Will increase Solu-Medrol to 60 q.6 x4 doses. Continue bronchodilators and aerosolized steroids. Continue aspiration precautions, continue Lasix. Will increase frequency of dose. Continue GI and DVT prophylaxis. Continue incentive spirometry and pulmonary hygiene. Continue antihypertensives. Plan to order ultrasound of the chest to evaluate pleural effusions and plan thoracentesis to be done by Dr. Ansari tomorrow morning. This was discussed with the family as well.
[2016-12-08] MEDS ORDERED: IPRATROPIUM 0.5 MG/2.5 ML NEBU INHALATION PRN (15:54)
[2016-12-08] MEDS ORDERED: LEVALBUTEROL NEB 1.25 MG/3 ML AMP INHALATION SCH (16:00)
--- NOTE | 2016-12-08 16:02 | P.PN ---
Subjective Is a 76-year-old male who presented with shortness of breath and evidence of acute hypoxic respiratory failure with possible pneumonia and CHF exacerbation. He is followed by pulmonary and cardiology and infectious disease. Patient still having some shortness of breath. There is concerns about the bilateral pleural effusions. Case discussed with pulmonary service. Ordering a chest ultrasound and patient will possibly need a nonrebreather. Patient denies any chest pain. Denies any nausea or vomiting. Denies any bowel movement changes or urinary symptoms Objective - Vital Signs Vital signs: Vital Signs Temp 97.1 F L 12/08/16 08:00 Pulse 118 H 12/08/16 12:05 Resp 16 12/08/16 12:00 BP 193/90 12/08/16 08:00 Pulse Ox 97 12/08/16 08:40 Intake & Output 12/07/16 12/08/16 12/08/16 18:59 06:59 18:59 Intake Total 1520 Output Total 590 300 Balance -590 1220 Weight 73.936 kg 74.5 kg 74.5 kg Intake: IV 900 Sodium Chloride 0.9% 1, 900 000 ml @ 100 mls/hr IV . Q10H STA Rx#:[id number] Tube Feeding 620 Output: Urine 590 300 Other: Voiding Method Urinal Urinal # Voids 0 - Exam Head normocephalic Neck supple Lungs diminished bilaterally Heart regular rate and rhythm S1-S2, no rub or gallop Abdomen is soft nontender nondistended positive bowel sounds no hepatosplenomegaly Extremities no edema Neuro alert and orientated to 3 - Labs CBC & Chem 7: 12/08/16 06:59 12/08/16 06:59 Labs: Abnormal Lab Results - Last 24 Hours (Table) 12/07/16 12/08/16 12/08/16 Range/Units 21:59 06:22 06:59 Hgb 11.4 L (13.0-17.5) gm/dL Hct 35.7 L (39.0-53.0) % Plt Count 135 L (150-450) k/uL Lymphocytes # 0.1 L (1.0-4.8) k/uL Sodium (137-145) mmol/L Chloride (98-107) mmol/L BUN (9-20) mg/dL Creatinine (0.66-1.25) mg/dL Glucose (74-99) mg/dL POC Glucose (mg/dL) 173 H 191 H (75-99) mg/dL Calcium (8.4-10.2) mg/dL Albumin (3.5-5.0) g/dL 12/08/16 12/08/16 Range/Units 06:59 11:45 Hgb (13.0-17.5) gm/dL Hct (39.0-53.0) % Plt Count (150-450) k/uL Lymphocytes # (1.0-4.8) k/uL Sodium 126 L (137-145) mmol/L Chloride 87 L (98-107) mmol/L BUN 25 H (9-20) mg/dL Creatinine 0.58 L (0.66-1.25) mg/dL Glucose 235 H (74-99) mg/dL POC Glucose (mg/dL) 110 H (75-99) mg/dL Calcium 8.3 L (8.4-10.2) mg/dL Albumin 3.3 L (3.5-5.0) g/dL Microbiology - Last 24 Hours (Table) 12/07/16 08:00 Blood Culture - Preliminary Blood No Growth after 24 hours 12/07/16 16:18 Gram Stain - Preliminary Sputum Assessment and Plan Plan: 1. Acute hypoxic respiratory failure with oxygen saturation at 60% on room air. Currently on 6 L sating at 95%. Likely secondary to pneumonia and CHF exacerbation. CTA was negative for PE. Did show interstitial edema bilaterally worsening multifocal groundglass opacity particularly central upper lung suggesting worsening edema and/or infiltrate. Pulmonary service and cardiology have been consulted. Continue nebulizer treatments. Patient was started on Levaquin and Zosyn. Check sputum culture. Infectious diseases ordered lab work. 2. Acute CHF exacerbation: BNP elevated at 17,800. Continue IV Lasix. Echo was suboptimal study for assessment of LV function. Repeat echo with contrast was ordered by cardiology 3. Hyponatremia sodium 122 on admission: Sodium up to 126. Continue to monitor 4. 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 Elevated troponin on admission no chest pain. Cardiology will be consulted. Troponin 0.110 EKG had shown sinus tachycardia with PVCs heart rate 116 6. Iron deficiency anemia resume iron supplement 7. Essential hypertension: With accelerated hypertension. Catapres patch has been restarted. The patient will be started on Lasix 8. Hypothyroidism continue Synthroid 9. Elevated PSA level around 14 an outpatient setting. Patient is followed up with urology and they're planning to proceed with biopsy of the prostate at the end of November 29. Nutrition: continue patient's tube feedings. dietitian will be consulted 11. Possible PEG tube replacement during this admission. Dr. Richey following 12. Sinus tachycardia: Heart rate in the 120s. Will change nebulizer treatments to Xopenex and Atrovent discontinued the albuterol. 13. Hypertensive emergency: Cardiology has added Norvasc. Blood pressures have shown improvement. Also Lasix dose was adjusted 14. Bilateral pleural effusions pulmonary service following they've ordered chest ultrasound. Patient possibly will need thoracentesis. Case discussed with pulmonary service GI prophylaxis Pepcid and DVT prophylaxis Lovenox
[2016-12-08 16:14] LABS: Glucose,Whole Blood 123 mg/dL (75-99)
[2016-12-08] MEDS ORDERED: LEVALBUTEROL NEB 1.25 MG/3 ML AMP INHALATION PRN (17:00)
[2016-12-08] MEDS ORDERED: LEVALBUTEROL NEB (CONC) 1.25 MG/0.5 ML AMP INHALATION PRN (17:20)
--- NOTE | 2016-12-08 17:37 | US ---
EXAMINATION TYPE: US chest DATE OF EXAM: 12/08/2016 4:05 PM COMPARISON: NONE CLINICAL HISTORY: peter for thoracentesis, bilateral. EXAM MEASUREMENTS: Right Pleural Effusion fluid pocket: 3.5 cm Right skin to fluid thickness: 2.8 cm Left Pleural Effusion fluid pocket: 1.4 cm Left skin to fluid thickness: 2.6 cm Right side marked for possible thoracentesis outside the dept. Left side not marked for possible thoracentesis outside the dept. Pulmonologists are able to review the images in the patient?s EMR. IMPRESSIONS: 1. Small right pleural effusion 2. Minimal left pleural effusion
[2016-12-08] MEDS: LEVALBUTEROL NEB (CONC) 1.25 MG/0.5 ML AMP INHALATION SCH (19:44)
[2016-12-08] MEDS: IPRATROPIUM 0.5 MG/2.5 ML NEBU INHALATION SCH ×2 (19:44→19:46)
[2016-12-08 21:27] LABS: Glucose,Whole Blood 141 mg/dL (75-99)
--- NOTE | 2016-12-08 22:21 | P.CON ---
Consult Note - . Consult date: 12/08/16 Assessment/Plan:: This is a 76-year-old male who has a significant past history of esophageal cancer status post chemotherapy and radiation therapy with PEG tube in place. Patient is also being worked up for possible prostate cancer. Patient states he was treated in [place] for esophageal cancer. Patient states that 2 weeks ago he started having increased phlegm and he normally is able to suck out the sputum in the morning and evening but he's had increased most recently. 2 days ago he started using oxygen which he normally does not use. 3 weeks ago he was placed on antibiotics which he does not recall the name and completed this course. Despite use of oxygen, patient continued to have significant dyspnea with cough congestion and sputum production. Apparently his pulse ox was 60% and he came into [facility] emergency center for evaluation. He was afebrile but tachycardic and hypertensive. White count is 6.6, and electrolyte abnormalities with hyponatremia and hyperchloremia. Kidney function was within normal limits. Troponin was 0.110. ProBNP was 17,800. Albumin was noted to be 3.3. He underwent a chest x-ray that showed worsening interstitial opacity airspace disease right greater than left. Small to moderate right and small left pleural effusion persist. His d- dimer was elevated at 1.81 and he underwent a CAT scan of the chest that showed no pulmonary embolism. Small to moderate bilateral pleural effusions. Interstitial edema bilaterally with worsening multifocal groundglass opacity of either edema and or infiltrate. Influenza testing a and B were negative. Mycoplasma pneumonia IgG and IgM were negative. Blood cultures status received. Sputum cultures in progress. Echocardiogram has been done and report is pending. Legionella and hypersensitivity panel are in process. Last evening his pulse ox was 86% on 2 L nasal cannula and he was placed on a nonrebreather mask with improvement. Multiple consultants in place including pulmonary medicine, cardiology, and general surgery is on regarding PEG tube replacement. Please see the consult note as dictated by REHABILITATION CONSTRUCTION SPECIALIST Marybel Lyons. patient is feeling quite poorly. He has had short He has had an ultrasound to peter the right-sided pleural effusion. Hopefully to improve his shortness of breath.blood cultures are in progress antimicrobial tith Zosyn and Levaquin vancomycin is being utilized.workup for atypical pathogens is in process. I agree with the evaluation assessment and plan as dictated her nurse practitioner Mrs. Marybel Lyons.
[2016-12-08] MEDS: traZODone HCL 100 MG TAB PO PRN (23:38)
[2016-12-09 06:43] LABS: Glucose,Whole Blood 137 mg/dL (75-99)
[2016-12-09] MEDS: INSULIN LISPRO (humaLOG) 300 UNIT/3 ML VIAL SQ SCH ×5 (07:56→22:07)
[2016-12-09] MEDS: methylPREDNISolone SOD SUCCI 125 MG/2 ML VIAL IV SCH ×3 (07:57→22:06)
[2016-12-09] MEDS: LEVOTHYROXINE 75 MCG TAB PO SCH (07:57)
--- NOTE | 2016-12-09 07:57 | XR ---
EXAMINATION TYPE: XR chest 1V portable DATE OF EXAM: 12/09/2016 7:10 AM Comparison: 12/08/2016 Clinical History: 76-year-old male effusions, CHF Findings: Heart remains mildly enlarged. Diffuse interstitial opacities with areas of more patchy and confluent airspace opacity. Small right greater than left pleural effusions, decreased on the left now. Impression: 1. Stable COPD with interstitial and patchy/confluent airspace disease, greater on the right. Correla te for multifocal pneumonia or CHF and pulmonary edema. 2. Small right greater than left pleural effusions, decreased on the left now.
[2016-12-09] MEDS: FUROSEMIDE 10 MG/ML 4 ML VIAL IV SCH ×2 (08:10→22:06)
[2016-12-09] MEDS: PIPERACILLIN-TAZOBACTAM 3.375 GM in DEXTROSE/WATER 1 50ML.BAG IVPB SCH ×2 (08:13→15:34)
[2016-12-09 08:19] LABS: Basophils % (A) 0 %; CH 26.4; CHCM 32.4; Eosinophils % (A) 0 %; HGB 11.6 gm/dL (13.0-17.5); Hypochromasia Slight; Luc # (Auto) 0.07; Luc % (Auto) 1; Lymphocytes # (A) 0.2 k/uL (1.0-4.8); Lymphocytes % (A) 3 %; MCH 27.1 pg (25.0-35.0); MCHC 33.2 g/dL (31.0-37.0); MCV 81.8 fL (80.0-100.0); Mean Platelet Volume 6.9; Monocytes # (A) 0.3 k/uL (0-1.0); Monocytes % (A) 6 %; Neutrophils # (A) 5.5 k/uL (1.3-7.7); Neutrophils % (A) 90 %; Poikilocytosis Slight; RBC 4.27 m/uL (4.30-5.90); RDW 15.3 % (11.5-15.5); WBC 6.1 k/uL (3.8-10.6); WBC (Perox) 5.95
[2016-12-09 08:23] LABS: INR 1.2 (<1.1); Prothrombin Time 11.6 sec (9.0-12.0)
[2016-12-09 08:41] LABS: ALT 30 U/L (21-72); AST 40 U/L (17-59); Alkaline Phosphatase 64 U/L (38-126); Anion Gap 12 mmol/L; Blood Urea Nitrogen 33 mg/dL (9-20); Calcium 8.4 mg/dL (8.4-10.2); Carbon Dioxide 32 mmol/L (22-30); Chloride 86 mmol/L (98-107); Glucose 141 mg/dL (74-99); Non-African American GFR(MDRD) >60 (>60 ml/min/1.73 sqM); Sodium 130 mmol/L (137-145); Total Bilirubin 1.1 mg/dL (0.2-1.3); Total Protein 6.3 g/dL (6.3-8.2)
[2016-12-09 08:52] LABS: Potassium 3.8 mmol/L (3.5-5.1)
[2016-12-09] MEDS: ASPIRIN 81 MG CHEW PO SCH (09:16)
[2016-12-09] MEDS: FAMOTIDINE 20 MG TAB PO SCH (09:16)
[2016-12-09] MEDS: guaiFENesin 600 MG TABLET.ER PO SCH ×2 (09:16→22:06)
[2016-12-09] MEDS: amLODIPine 5 MG TAB PO SCH (09:17)
[2016-12-09] MEDS: FERROUS SULFATE 325 MG TAB PO SCH (09:17)
[2016-12-09] MEDS: BUDESONIDE 0.5 MG/2 ML NEBU INHALATION SCH ×2 (09:42→21:14)
[2016-12-09] MEDS: LEVALBUTEROL NEB (CONC) 1.25 MG/0.5 ML AMP INHALATION SCH ×4 (09:42→21:14)
[2016-12-09] MEDS: IPRATROPIUM 0.5 MG/2.5 ML NEBU INHALATION SCH ×4 (09:42→21:14)
--- NOTE | 2016-12-09 10:38 | P.PN ---
Subjective Principal diagnosis: Acute hypoxic respiratory failure Patient is a 76-year-old male who presented with shortness of breath and evidence of acute hypoxic respiratory failure with possible pneumonia and CHF exacerbation. He is followed by pulmonary and cardiology and infectious disease. Patient still having some shortness of breath. There is concerns about the bilateral pleural effusions. Case discussed with pulmonary service. Ordering a chest ultrasound to assess for possible thoracentesis. On review of systems Patient has no fever or chills no headache no dizziness he has occasional cough Patient denies any chest pain. Denies any nausea or vomiting no abdominal pain no diarrhea Denies any bowel movement changes or urinary symptoms Objective - Vital Signs Vital signs: Vital Signs Temp 97.0 F L 12/09/16 04:00 Pulse 110 H 12/09/16 09:58 Resp 18 12/09/16 04:00 BP 161/89 12/09/16 04:00 Pulse Ox 88 L 12/09/16 04:00 Intake & Output 12/08/16 12/09/16 12/09/16 18:59 06:59 18:59 Output Total 825 200 Balance -825 -200 Weight 74.5 kg 75.5 kg Output: Urine 825 200 Other: Voiding Method Urinal Urinal - Exam In general patient is alert and oriented 3 in no apparent distress HEENT head normocephalic and atraumatic Neck is supple no JVD no goiter no lymphadenopathy Cardiac exam reveals regular heart sounds S1 and S2 no gallops no murmurs Chest exam reveals a few scattered rhonchi bilaterally with decreased respiratory sounds in the right base Abdomen is soft nontender no organomegaly with normal bowel sounds Extremity exam reveals no edema no cyanosis or clubbing Neurological examination reveals no gross deficit - Labs CBC & Chem 7: 12/09/16 07:22 12/09/16 07:22 Labs: Abnormal Lab Results - Last 24 Hours (Table) 12/08/16 12/08/16 12/08/16 Range/Units 11:45 16:12 21:07 RBC (4.30-5.90) m/uL Hgb (13.0-17.5) gm/dL Hct (39.0-53.0) % Lymphocytes # (1.0-4.8) k/uL Sodium (137-145) mmol/L Chloride (98-107) mmol/L Carbon Dioxide (22-30) mmol/L BUN (9-20) mg/dL Glucose (74-99) mg/dL POC Glucose (mg/dL) 110 H 123 H 141 H (75-99) mg/dL Albumin (3.5-5.0) g/dL 12/09/16 12/09/16 12/09/16 Range/Units 06:30 07:22 07:22 RBC 4.27 L (4.30-5.90) m/uL Hgb 11.6 L (13.0-17.5) gm/dL Hct 35.0 L (39.0-53.0) % Lymphocytes # 0.2 L (1.0-4.8) k/uL Sodium 130 L (137-145) mmol/L Chloride 86 L (98-107) mmol/L Carbon Dioxide 32 H (22-30) mmol/L BUN 33 H (9-20) mg/dL Glucose 141 H (74-99) mg/dL POC Glucose (mg/dL) 137 H (75-99) mg/dL Albumin 3.2 L (3.5-5.0) g/dL Microbiology - Last 24 Hours (Table) 12/07/16 08:00 Blood Culture - Preliminary Blood No Growth after 48 hours Assessment and Plan Plan: 1. Acute hypoxic respiratory failure with oxygen saturation at 60% on room air. Currently on 6 L sating at 95%. Likely secondary to pneumonia and CHF exacerbation. CTA was negative for PE. Did show interstitial edema bilaterally worsening multifocal groundglass opacity particularly central upper lung suggesting worsening edema and/or infiltrate. Pulmonary service and cardiology have been consulted. Continue nebulizer treatments. Patient was started on Levaquin and Zosyn. Check sputum culture. Infectious diseases ordered lab work. 2. Acute CHF exacerbation: BNP elevated at 17,800. Continue IV Lasix. Echo was suboptimal study for assessment of LV function. Repeat echo with contrast was ordered by cardiology 3. Hyponatremia sodium 122 on admission: Sodium up to 130 today. Continue to monitor 4. 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 Elevated troponin on admission no chest pain. Cardiology will be consulted. Troponin 0.110 EKG had shown sinus tachycardia with PVCs heart rate 116 6. Iron deficiency anemia resume iron supplement 7. Essential hypertension: With accelerated hypertension. Catapres patch has been restarted. The patient will be started on Lasix 8. Hypothyroidism continue Synthroid 9. Elevated PSA level around 14 an outpatient setting. Patient is followed up with urology and they're planning to proceed with biopsy of the prostate at the end of November 29. Nutrition: continue patient's tube feedings. dietitian will be consulted 11. Possible PEG tube replacement during this admission. Dr. Richey following 12. Sinus tachycardia: Heart rate in the 120s. Will change nebulizer treatments to Xopenex and Atrtiffanyt discontinued the albuterol. 13. Hypertensive emergency: Cardiology has added Norvasc. Blood pressures have shown improvement. Also Lasix dose was adjusted 14. Bilateral pleural effusions pulmonary service following they've ordered chest ultrasound. Patient possibly will need thoracentesis.
--- NOTE | 2016-12-09 10:46 | P.PN ---
Subjective Principal diagnosis: Malnutrition Patient is having increased drainage around the catheter site. The patient's family was concerned was coming from the catheter itself. No pain. He actually stopped his tube feeds because of the drainage last night. Objective - Vital Signs Vital signs: Vital Signs Temp 97.0 F L 12/09/16 04:00 Pulse 110 H 12/09/16 09:58 Resp 18 12/09/16 04:00 BP 161/89 12/09/16 04:00 Pulse Ox 88 L 12/09/16 04:00 Intake & Output 12/08/16 12/09/16 12/09/16 18:59 06:59 18:59 Output Total 825 200 Balance -825 -200 Weight 74.5 kg 75.5 kg Output: Urine 825 200 Other: Voiding Method Urinal Urinal - Exam Abdomen: Soft, nontender, nondistended, PEG tube intact. The bolster was slightly tightened. The catheter was inspected and I do not see any crack in the tubing at this time. - Labs CBC & Chem 7: 12/09/16 07:22 12/09/16 07:22 Labs: Abnormal Lab Results - Last 24 Hours (Table) 12/08/16 12/08/16 12/08/16 Range/Units 11:45 16:12 21:07 RBC (4.30-5.90) m/uL Hgb (13.0-17.5) gm/dL Hct (39.0-53.0) % Lymphocytes # (1.0-4.8) k/uL Sodium (137-145) mmol/L Chloride (98-107) mmol/L Carbon Dioxide (22-30) mmol/L BUN (9-20) mg/dL Glucose (74-99) mg/dL POC Glucose (mg/dL) 110 H 123 H 141 H (75-99) mg/dL Albumin (3.5-5.0) g/dL 12/09/16 12/09/16 12/09/16 Range/Units 06:30 07:22 07:22 RBC 4.27 L (4.30-5.90) m/uL Hgb 11.6 L (13.0-17.5) gm/dL Hct 35.0 L (39.0-53.0) % Lymphocytes # 0.2 L (1.0-4.8) k/uL Sodium 130 L (137-145) mmol/L Chloride 86 L (98-107) mmol/L Carbon Dioxide 32 H (22-30) mmol/L BUN 33 H (9-20) mg/dL Glucose 141 H (74-99) mg/dL POC Glucose (mg/dL) 137 H (75-99) mg/dL Albumin 3.2 L (3.5-5.0) g/dL Microbiology - Last 24 Hours (Table) 12/07/16 08:00 Blood Culture - Preliminary Blood No Growth after 48 hours Assessment and Plan (1) Malnutrition Narrative/Plan: Resume tube feeds. We'll plan replacement when medically stable. Status: Acute
[2016-12-09] MEDS: MORPHINE SULFATE 2 MG/ML SYRINGE IVP PRN ×2 (11:46→23:07)
[2016-12-09] MEDS: LEVOFLOXACIN 750MG-D5W PMX 750 MG in DEXTROSE/WATER 1 150ML.BAG IVPB SCH (11:48)
--- NOTE | 2016-12-09 12:33 | P.PN ---
Subjective Principal diagnosis: Acute on chronic hypoxic respiratory failure Patient seen and examined with his at bedside. The patient states his breathing is much better today. He is down to 5 L nasal cannula. The patient' s chest x-ray and chest ultrasound are reviewed. Pleural effusions appear to be improving significantly. The patient's symptoms are improving. This is discussed with the family and thoracentesis will be on hold for now. We will continue to monitor the patient's status. Objective - Vital Signs Vital signs: Vital Signs Temp 96.8 F L 12/09/16 08:00 Pulse 98 12/09/16 11:58 Resp 16 12/09/16 11:58 BP 112/59 12/09/16 11:58 Pulse Ox 95 12/09/16 11:58 Intake & Output 12/08/16 12/09/16 12/09/16 18:59 06:59 18:59 Output Total 825 200 Balance -825 -200 Weight 74.5 kg 75.5 kg Output: Urine 825 200 Other: Voiding Method Urinal Urinal Urinal - Exam Gen.: Patient is alert and oriented 3, no acute distress Cardiovascular: Regular rate and rhythm, S1/S2 Lungs: Coarse breath sounds bilaterally Abdomen: Soft nontender nondistended positive bowel sounds, + PEG tube Extremities: Trace edema - Labs CBC & Chem 7: 12/09/16 07:22 12/09/16 07:22 Labs: Abnormal Lab Results - Last 24 Hours (Table) 12/08/16 12/08/16 12/09/16 Range/Units 16:12 21:07 06:30 RBC (4.30-5.90) m/uL Hgb (13.0-17.5) gm/dL Hct (39.0-53.0) % Lymphocytes # (1.0-4.8) k/uL Sodium (137-145) mmol/L Chloride (98-107) mmol/L Carbon Dioxide (22-30) mmol/L BUN (9-20) mg/dL Glucose (74-99) mg/dL POC Glucose (mg/dL) 123 H 141 H 137 H (75-99) mg/dL Albumin (3.5-5.0) g/dL 12/09/16 12/09/16 Range/Units 07:22 07:22 RBC 4.27 L (4.30-5.90) m/uL Hgb 11.6 L (13.0-17.5) gm/dL Hct 35.0 L (39.0-53.0) % Lymphocytes # 0.2 L (1.0-4.8) k/uL Sodium 130 L (137-145) mmol/L Chloride 86 L (98-107) mmol/L Carbon Dioxide 32 H (22-30) mmol/L BUN 33 H (9-20) mg/dL Glucose 141 H (74-99) mg/dL POC Glucose (mg/dL) (75-99) mg/dL Albumin 3.2 L (3.5-5.0) g/dL Microbiology - Last 24 Hours (Table) 12/07/16 08:00 Blood Culture - Preliminary Blood No Growth after 48 hours Assessment and Plan Plan: Acute on chronic hypoxic respiratory failure Abnormal CT of the chest, bilateral infiltrates, pneumonitis versus edema versus atypical pneumonia Dysphagia, status post PEG tube History of esophageal cancer, status post chemo and radiation Hyponatremia Mediastinal lymphadenopathy Elevated troponins Mild pulmonary hypertension Anemia History of tobacco abuse Elevated PSA, ongoing outpatient workup for possible prostate cancer O2 to maintain saturation greater than equal to 88% Antibiotics: Levaquin, Zosyn Solu-Medrol Bronchodilators and Pulmicort Aspiration precautions Sputum, blood, urine cultures Pending HP panel Diuresis Serial chest x-rays Check Legionella (pending), mycoplasma (negative), influenza (negative) Dr. Richey per family request for PEG tube issues - pending patient's respiratory status, possible PEG tube change early next week GI and DVT prophylaxis Repeat CT in 4-6 weeks to ensure clearance, if not clearing, patient may need bronchoscopy. PET scan is not recommended at this time as it is common to have false positive with acute inflammation. Incentive spirometry and pulmonary hygiene
[2016-12-09 12:39] LABS: Glucose,Whole Blood 253 mg/dL (75-99)
--- NOTE | 2016-12-09 16:13 | P.PN ---
Subjective Principal diagnosis: Shortness of breath This is a 76-year-old male who has a significant past history of esophageal cancer status post chemotherapy and radiation therapy with PEG tube in place. Patient is also being worked up for possible prostate cancer. Patient states he was treated in [place] for esophageal cancer. Patient states that 2 weeks ago he started having increased phlegm and he normally is able to suck out the sputum in the morning and evening but he's had increased most recently. 2 days ago he started using oxygen which he normally does not use. 3 weeks ago he was placed on antibiotics which he does not recall the name and completed this course. Despite use of oxygen, patient continued to have significant dyspnea with cough congestion and sputum production. Apparently his pulse ox was 60% and he came into [facility] emergency center for evaluation. He was afebrile but tachycardic and hypertensive. White count is 6.6, and electrolyte abnormalities with hyponatremia and hyperchloremia. Kidney function was within normal limits. Troponin was 0.110. ProBNP was 17,800. Albumin was noted to be 3.3. He underwent a chest x-ray that showed worsening interstitial opacity airspace disease right greater than left. Small to moderate right and small left pleural effusion persist. His d- dimer was elevated at 1.81 and he underwent a CAT scan of the chest that showed no pulmonary embolism. Small to moderate bilateral pleural effusions. Interstitial edema bilaterally with worsening multifocal groundglass opacity of either edema and or infiltrate. Influenza testing a and B were negative. Mycoplasma pneumonia IgG and IgM were negative. Blood cultures status received. Sputum cultures in progress. Echocardiogram has been done without acute change. Respiratory status improved. Now on nasal cannula. Receiving respiratory treatments. Sputum culture is showing some gram-positive cocci. Objective - Vital Signs Vital signs: Vital Signs Temp 96.8 F L 12/09/16 08:00 Pulse 108 H 12/09/16 14:36 Resp 16 12/09/16 14:30 BP 112/59 12/09/16 11:58 Pulse Ox 95 12/09/16 11:58 Intake & Output 12/08/16 12/09/16 12/09/16 18:59 06:59 18:59 Output Total 825 500 Balance -825 -500 Weight 74.5 kg 75.5 kg Output: Urine 825 500 Other: Voiding Method Urinal Urinal Urinal - Exam Gen: This is a 76-year-old male. He is sitting up in bed and appears to be in no acute distress while on a nonrebreather mask. He appears to be comfortable. Speech is difficult to understand. HEENT: Head is atraumatic, normocephalic. Pupils equal, round. Sclerae is anicteric. NECK: Supple. No JVD. No lymphadenopathy. No thyromegaly. LUNGS: Improved air exchange. Expiratory wheezes are still noted. Basilar rhonchi are still heard.. No intercostal retractions. HEART: Regular rate and rhythm. No murmur. ABDOMEN: Soft. Bowel sounds are present. No masses. No tenderness. PEG tube noted to the epigastric area with no signs of drainage, infection, tenderness. EXTREMITIES: No pedal edema. No calf tenderness. Dorsalis pedis +2 bilaterally. NEUROLOGICAL: Patient is awake, alert and oriented x3 - Labs CBC & Chem 7: 12/09/16 07:22 12/09/16 07:22 Labs: Abnormal Lab Results - Last 24 Hours (Table) 12/08/16 12/08/16 12/09/16 Range/Units 16:12 21:07 06:30 RBC (4.30-5.90) m/uL Hgb (13.0-17.5) gm/dL Hct (39.0-53.0) % Lymphocytes # (1.0-4.8) k/uL Sodium (137-145) mmol/L Chloride (98-107) mmol/L Carbon Dioxide (22-30) mmol/L BUN (9-20) mg/dL Glucose (74-99) mg/dL POC Glucose (mg/dL) 123 H 141 H 137 H (75-99) mg/dL Albumin (3.5-5.0) g/dL 12/09/16 12/09/16 12/09/16 Range/Units 07:22 07:22 12:18 RBC 4.27 L (4.30-5.90) m/uL Hgb 11.6 L (13.0-17.5) gm/dL Hct 35.0 L (39.0-53.0) % Lymphocytes # 0.2 L (1.0-4.8) k/uL Sodium 130 L (137-145) mmol/L Chloride 86 L (98-107) mmol/L Carbon Dioxide 32 H (22-30) mmol/L BUN 33 H (9-20) mg/dL Glucose 141 H (74-99) mg/dL POC Glucose (mg/dL) 253 H (75-99) mg/dL Albumin 3.2 L (3.5-5.0) g/dL Microbiology - Last 24 Hours (Table) 12/07/16 08:00 Blood Culture - Preliminary Blood No Growth after 48 hours Laboratory Results WBC 6.1 k/uL (3.8-10.6) 12/09/16 07:22 RBC 4.27 m/uL (4.30-5.90) L 12/09/16 07:22 Hgb 11.6 gm/dL (13.0-17.5) L 12/09/16 07:22 Hct 35.0 % (39.0-53.0) L 12/09/16 07:22 MCV 81.8 fL (80.0-100.0) 12/09/16 07:22 MCH 27.1 pg (25.0-35.0) 12/09/16 07: MCHC 33.2 g/dL (31.0-37.0) 12/09/16 07:22 RDW 15.3 % (11.5-15.5) 12/09/16 07:22 Plt Count 159 k/uL (150-450) 12/09/16 07:22 Neutrophils % 90 % 12/09/16 07:22 Lymphocytes % 3 % 12/09/16 07:22 Monocytes % 6 % 12/09/16 07:22 Eosinophils % 0 % 12/09/16 07:22 Basophils % 0 % 12/09/16 07:22 Neutrophils # 5.5 k/uL (1.3-7.7) 12/09/16 07:22 Lymphocytes # 0.2 k/uL (1.0-4.8) L 12/09/16 07:22 Monocytes # 0.3 k/uL (0-1.0) 12/09/16 07:22 Eosinophils # 0.0 k/uL (0-0.7) 12/09/16 07:22 Basophils # 0.0 k/uL (0-0.2) 12/09/16 07:22 Hypochromasia Slight 12/09/16 07:22 Poikilocytosis Slight 12/09/16 07:22 PT 11.6 sec (9.0-12.0) 12/09/16 07:22 INR 1.2 (<1.1) 12/09/16 07:22 APTT 23.6 sec (22.0-30.0) 12/07/16 08:00 D-Dimer 1.81 mg/L FEU (<0.60) H 12/07/16 08:00 Sodium 130 mmol/L (137-145) L 12/09/16 07:22 Potassium 3.8 mmol/L (3.5-5.1) 12/09/16 07:22 Chloride 86 mmol/L (98-107) L 12/09/16 07:22 Carbon Dioxide 32 mmol/L (22-30) H 12/09/16 07:22 Anion Gap 12 mmol/L 12/09/16 07:22 BUN 33 mg/dL (9-20) H 12/09/16 07:22 Creatinine 0.66 mg/dL (0.66-1.25) 12/09/16 07:22 Est GFR (MDRD) Af Amer >60 (>60 ml/min/1.73 sqM) 12/09/16 07:22 Est GFR (MDRD) Non-Af >60 (>60 ml/min/1.73 sqM) 12/09/16 07:22 Glucose 141 mg/dL (74-99) H 12/09/16 07:22 POC Glucose (mg/dL) 253 mg/dL (75-99) H 12/09/16 12:18 POC Glu Survey Party Chief ID Mary Petit 12/09/16 12:[address] Glu mg/dL 111 mg/dL 12/07/16 08:00 Hemoglobin A1c 5.5 % (4.2-6.1) 12/07/16 08:00 Calcium 8.4 mg/dL (8.4-10.2) 12/09/16 07:22 Magnesium 1.6 mg/dL (1.6-2.3) 12/07/16 08:00 Total Bilirubin 1.1 mg/dL (0.2-1.3) 12/09/16 07:22 AST 40 U/L (17-59) 12/09/16 07:22 ALT 30 U/L (21-72) 12/09/16 07:22 Alkaline Phosphatase 64 U/L (38-126) 12/09/16 07:22 Total Creatine Kinase 28 U/L (55-170) L 12/07/16 08:00 CK-MB (CK-2) 1.8 ng/mL (0.0-2.4) 12/07/16 08:00 CK-MB (CK-2) Rel Index 6.4 12/07/16 08:00 Troponin I 0.110 ng/mL (0.000-0.034) H* 12/07/16 08:00 NT-Pro-B Natriuret Pep 53976 pg/mL 12/07/16 08:00 Total Protein 6.3 g/dL (6.3-8.2) 12/09/16 07:22 Albumin 3.2 g/dL (3.5-5.0) L 12/09/16 07:22 IgE 42.10 IU/mL (0.00-114.00) 12/07/16 08:00 Influenza Type A RNA Not Detected (Not Detectd) 12/07/16 17:30 Influenza Type B (PCR) Not Detected (Not Detectd) 12/07/16 17:30 Mycoplasma pneumon IgG 0.74 INDEX (<=0.90) 12/07/16 08:00 Mycoplasma pneumon IgM 0.14 INDEX (<=0.90) 12/07/16 08:00 Microbiology 12/07/16 08:00 Blood Blood Culture - Preliminary No Growth after 48 hours 12/07/16 16:18 Sputum Gram Stain - Preliminary Assessment and Plan (1) Pneumonia Status: Acute (2) Aspiration pneumonia Narrative/Plan: 76 year male presents to Hospital with severe shortness of breath. He has a known history of esophageal cancer and is status post chemotherapy and radiation done in [place]. PEG tube is in place for his feeding. Concerns to prostate cancer also noted. For a few weeks having increasing amounts of sputum production and does suction them out himself. He became much more short of breath and Presented Emergency Center. There Is Evidence of Significant Pneumonia. Concerns to Aspiration Pneumonia Because of the Current Situation. Avonex Therapy Is with Piperacillin Tazobactam Levaquin and Vancomycin. Gram- Positive Cocci Being Seen on the Sputum Gram Stain This Will Continue. Concerns to Strep or MRSA. Overall He Is Feeling Somewhat Better. Evaluation for Atypical Pathogens Negative so Far. Continue Supportive Care. Is Not Having Fever. White Blood Cell Count Is Normal. Partially Is Had a Major Improvement of His Status. At This Time. Status: Acute
[2016-12-09 16:30] LABS: Glucose,Whole Blood 146 mg/dL (75-99)
--- NOTE | 2016-12-09 16:50 | CONS ---
DATE OF CONSULTATION: Mr. Walker is a 76-year-old male patient who came in very short of breath. Cardiology was consulted for evaluation of congestive heart failure. The patient is extremely short of breath. He is short of breath at rest. He has bilateral rhythm and wheezing. He also had a pleural effusion, which improved with IV diuresis. Hence cardiology consult was placed. A 2-D echo showed reduced LV systolic function, ejection fraction of about 40% to 45%. When I evaluated him, he was still wheezing quite a bit. His labs are reviewed. His white count is normal. His hemoglobin is 11.6; sodium 130, potassium 3.8. Kidney functions are within normal limits. LFTs are normal. He had one abnormal troponin of 0.1. On examination, his blood pressure is 112/59 mmHg but previously was elevated to 161/89, 155/80, and 161/83 mmHg. He is afebrile. Heart rate is 108 beats per minute, sinus tachycardia. Telemetry today showed non-sustained ventricular tachycardia. Breath sounds are reduced bilaterally, especially at the bases. Heart sounds S1, S2 are soft and tachycardic. Abdomen is soft. Extremities are warm; no edema. IMPRESSION: 1. Cardiomyopathy; left ventricular ejection fraction of 40%. 2. Congestive heart failure. 3. His respiratory status is impaired primary because of his severe lung disease and the pleural effusion. He does have an element of congestive heart failure. I will continue IV Lasix and later switch to p.o. Lasix. I would also add spironolactone. Today I am adding a very small dose of metoprolol at 12.5 mg p.o. b.i.d.; however, if this makes his respiratory condition, it should be stopped. For now I will continue clonidine patch. In addition, I added losartan 25 mg p.o. daily. From a cardiac standpoint, his options are very limited. His shortness of breath is predominantly pulmonary. He definitely has a lot of difficulty breathing, even at rest.
[2016-12-09 21:31] LABS: Glucose,Whole Blood 138 mg/dL (75-99)
[2016-12-09] MEDS: METOPROLOL TARTRATE 12.5 MG TAB PO SCH (22:07)
[2016-12-09] MEDS: traZODone HCL 100 MG TAB PO PRN (23:04)
[2016-12-10] MEDS: PIPERACILLIN-TAZOBACTAM 3.375 GM in DEXTROSE/WATER 1 50ML.BAG IVPB SCH ×3 (00:39→15:27)
[2016-12-10] MEDS: methylPREDNISolone SOD SUCCI 125 MG/2 ML VIAL IV SCH ×3 (04:55→21:35)
[2016-12-10] MEDS ORDERED: MAGNESIUM HYDROXIDE 2,400 MG/10 ML CUP PO PRN (06:26)
[2016-12-10 06:45] LABS: Basophils % (A) 0 %; CH 26.2; CHCM 31.4; Eosinophils % (A) 0 %; HCT 36.7 % (39.0-53.0); HDW 3.19; HGB 11.5 gm/dL (13.0-17.5); Hypochromasia Slight; Luc # (Auto) 0.15; Luc % (Auto) 2; Lymphocytes # (A) 0.2 k/uL (1.0-4.8); Lymphocytes % (A) 2 %; MCH 26.1 pg (25.0-35.0); MCHC 31.2 g/dL (31.0-37.0); MCV 83.6 fL (80.0-100.0); Mean Platelet Volume 7.2; Monocytes # (A) 0.6 k/uL (0-1.0); Monocytes % (A) 6 %; Neutrophils % (A) 89 %; RBC 4.39 m/uL (4.30-5.90); RDW 15.6 % (11.5-15.5); WBC 8.9 k/uL (3.8-10.6)
[2016-12-10 07:11] LABS: ALT 33 U/L (21-72); AST 24 U/L (17-59); Alkaline Phosphatase 64 U/L (38-126); Anion Gap 10 mmol/L; Blood Urea Nitrogen 41 mg/dL (9-20); Calcium 8.3 mg/dL (8.4-10.2); Carbon Dioxide 37 mmol/L (22-30); Chloride 87 mmol/L (98-107); Glucose 140 mg/dL (74-99); Non-African American GFR(MDRD) >60 (>60 ml/min/1.73 sqM); Potassium 3.3 mmol/L (3.5-5.1); Sodium 134 mmol/L (137-145); Total Bilirubin 0.6 mg/dL (0.2-1.3); Total Protein 5.9 g/dL (6.3-8.2)
[2016-12-10 07:23] LABS: Glucose,Whole Blood 135 mg/dL (75-99)
[2016-12-10] MEDS: LEVOTHYROXINE 75 MCG TAB PO SCH (07:32)
[2016-12-10] MEDS: INSULIN LISPRO (humaLOG) 300 UNIT/3 ML VIAL SQ SCH ×4 (07:33→21:34)
[2016-12-10] MEDS: guaiFENesin 600 MG TABLET.ER PO SCH (08:11)
[2016-12-10] MEDS: ASPIRIN 81 MG CHEW PO SCH (08:11)
[2016-12-10] MEDS: amLODIPine 5 MG TAB PO SCH (08:11)
[2016-12-10] MEDS: FUROSEMIDE 10 MG/ML 4 ML VIAL IV SCH ×2 (08:12→21:34)
[2016-12-10] MEDS: LOSARTAN 25 MG TAB PO SCH ×2 (08:12→10:17)
[2016-12-10] MEDS: FERROUS SULFATE 325 MG TAB PO SCH ×2 (08:12→11:43)
[2016-12-10] MEDS: FAMOTIDINE 20 MG TAB PO SCH (08:12)
[2016-12-10] MEDS: BUDESONIDE 0.5 MG/2 ML NEBU INHALATION SCH ×2 (08:35→21:00)
[2016-12-10] MEDS: LEVALBUTEROL NEB (CONC) 1.25 MG/0.5 ML AMP INHALATION SCH ×3 (08:36→21:00)
[2016-12-10] MEDS: IPRATROPIUM 0.5 MG/2.5 ML NEBU INHALATION SCH ×4 (08:36→21:00)
[2016-12-10] MEDS: METOPROLOL TARTRATE 12.5 MG TAB PO SCH ×2 (10:17→21:35)
[2016-12-10] MEDS: MORPHINE SULFATE 2 MG/ML SYRINGE IVP PRN ×2 (10:57→21:35)
--- NOTE | 2016-12-10 11:17 | P.PN ---
Subjective Principal diagnosis: Malnutrition Patient doing much better today. His breathing is improved. Heart rate is also improved. No further drainage from the PEG tube. Objective - Vital Signs Vital signs: Vital Signs Temp 97.3 F L 12/10/16 04:00 Pulse 112 H 12/10/16 08:50 Resp 20 12/10/16 08:00 BP 167/84 12/10/16 08:00 Pulse Ox 92 L 12/10/16 08:00 Intake & Output 12/09/16 12/10/16 12/10/16 18:59 06:59 18:59 Intake Total 480 480 Output Total 1100 400 Balance -620 80 Weight 75.7 kg Intake: Tube Feeding 480 480 Output: Urine 1100 400 Other: Voiding Method Urinal Urinal - Exam Abdomen: Soft, nontender, nondistended - Labs CBC & Chem 7: 12/10/16 06:10 12/10/16 06:10 Labs: Abnormal Lab Results - Last 24 Hours (Table) 12/09/16 12/09/16 12/09/16 Range/Units 12:18 16:28 21:21 Hgb (13.0-17.5) gm/dL Hct (39.0-53.0) % RDW (11.5-15.5) % Neutrophils # (1.3-7.7) k/uL Lymphocytes # (1.0-4.8) k/uL Sodium (137-145) mmol/L Potassium (3.5-5.1) mmol/L Chloride (98-107) mmol/L Carbon Dioxide (22-30) mmol/L BUN (9-20) mg/dL Glucose (74-99) mg/dL POC Glucose (mg/dL) 253 H 146 H 138 H (75-99) mg/dL Calcium (8.4-10.2) mg/dL Total Protein (6.3-8.2) g/dL Albumin (3.5-5.0) g/dL 12/10/16 12/10/16 12/10/16 Range/Units 06:10 06:10 07:21 Hgb 11.5 L (13.0-17.5) gm/dL Hct 36.7 L (39.0-53.0) % RDW 15.6 H (11.5-15.5) % Neutrophils # 8.0 H (1.3-7.7) k/uL Lymphocytes # 0.2 L (1.0-4.8) k/uL Sodium 134 L (137-145) mmol/L Potassium 3.3 L (3.5-5.1) mmol/L Chloride 87 L (98-107) mmol/L Carbon Dioxide 37 H (22-30) mmol/L BUN 41 H (9-20) mg/dL Glucose 140 H (74-99) mg/dL POC Glucose (mg/dL) 135 H (75-99) mg/dL Calcium 8.3 L (8.4-10.2) mg/dL Total Protein 5.9 L (6.3-8.2) g/dL Albumin 3.1 L (3.5-5.0) g/dL Microbiology - Last 24 Hours (Table) 12/07/16 08:00 Blood Culture - Preliminary Blood No Growth after 72 hours 12/07/16 16:18 Gram Stain - Preliminary Sputum Sputum Culture - Preliminary Gram Neg Bacilli Assessment and Plan (1) Malnutrition Narrative/Plan: Increase activity level. Possibly exchange catheter during this hospitalization. Status: Acute
[2016-12-10] MEDS ORDERED: Potassium Replacement Protocol 1 EACH MISC MISCELLANE PRN ×3 (11:41→23:01)
[2016-12-10 12:23] LABS: Glucose,Whole Blood 219 mg/dL (75-99)
[2016-12-10] MEDS: POTASSIUM CHLORIDE ER 20 MEQ TAB.ER PO SCH ×4 (12:24→16:55)
[2016-12-10] MEDS: LEVOFLOXACIN 750MG-D5W PMX 750 MG in DEXTROSE/WATER 1 150ML.BAG IVPB SCH (12:38)
--- NOTE | 2016-12-10 15:38 | P.PN ---
Subjective Principal diagnosis: Acute on chronic hypoxic respiratory failure Patient seen and examined. Patient is on 5 L nasal cannula. He states his breathing is feeling better today. Case is discussed with Dr. Richey who is planning to change his PEG tube tomorrow. The patient has been hemodynamically stable. Objective - Vital Signs Vital signs: Vital Signs Temp 97.3 F L 12/10/16 04:00 Pulse 100 12/10/16 13:52 Resp 19 12/10/16 12:00 BP 126/60 12/10/16 12:00 Pulse Ox 92 L 12/10/16 12:00 Intake & Output 12/09/16 12/10/16 12/10/16 18:59 06:59 18:59 Intake Total 480 480 Output Total 1100 400 500 Balance -620 80 -500 Weight 75.7 kg Intake: Tube Feeding 480 480 Output: Urine 1100 400 500 Other: Voiding Method Urinal Urinal - Exam Gen.: Patient is alert and oriented 3, no acute distress Cardiovascular: Regular rate and rhythm, S1/S2 Lungs: Coarse breath sounds bilaterally Abdomen: Soft nontender nondistended positive bowel sounds, + PEG tube Extremities: Trace edema - Labs CBC & Chem 7: 12/10/16 06:10 12/10/16 14:19 Labs: Abnormal Lab Results - Last 24 Hours (Table) 12/09/16 12/09/16 12/10/16 Range/Units 16:28 21:21 06:10 Hgb 11.5 L (13.0-17.5) gm/dL Hct 36.7 L (39.0-53.0) % RDW 15.6 H (11.5-15.5) % Neutrophils # 8.0 H (1.3-7.7) k/uL Lymphocytes # 0.2 L (1.0-4.8) k/uL Sodium (137-145) mmol/L Potassium (3.5-5.1) mmol/L Chloride (98-107) mmol/L Carbon Dioxide (22-30) mmol/L BUN (9-20) mg/dL Glucose (74-99) mg/dL POC Glucose (mg/dL) 146 H 138 H (75-99) mg/dL Calcium (8.4-10.2) mg/dL Total Protein (6.3-8.2) g/dL Albumin (3.5-5.0) g/dL 12/10/16 12/10/16 12/10/16 Range/Units 06:10 07:21 12:13 Hgb (13.0-17.5) gm/dL Hct (39.0-53.0) % RDW (11.5-15.5) % Neutrophils # (1.3-7.7) k/uL Lymphocytes # (1.0-4.8) k/uL Sodium 134 L (137-145) mmol/L Potassium 3.3 L (3.5-5.1) mmol/L Chloride 87 L (98-107) mmol/L Carbon Dioxide 37 H (22-30) mmol/L BUN 41 H (9-20) mg/dL Glucose 140 H (74-99) mg/dL POC Glucose (mg/dL) 135 H 219 H (75-99) mg/dL Calcium 8.3 L (8.4-10.2) mg/dL Total Protein 5.9 L (6.3-8.2) g/dL Albumin 3.1 L (3.5-5.0) g/dL 12/10/16 Range/Units 14:19 Hgb (13.0-17.5) gm/dL Hct (39.0-53.0) % RDW (11.5-15.5) % Neutrophils # (1.3-7.7) k/uL Lymphocytes # (1.0-4.8) k/uL Sodium (137-145) mmol/L Potassium 3.3 L (3.5-5.1) mmol/L Chloride (98-107) mmol/L Carbon Dioxide (22-30) mmol/L BUN (9-20) mg/dL Glucose (74-99) mg/dL POC Glucose (mg/dL) (75-99) mg/dL Calcium (8.4-10.2) mg/dL Total Protein (6.3-8.2) g/dL Albumin (3.5-5.0) g/dL Microbiology - Last 24 Hours (Table) 12/07/16 08:00 Blood Culture - Preliminary Blood No Growth after 72 hours 12/07/16 16:18 Gram Stain - Preliminary Sputum Sputum Culture - Preliminary Gram Neg Bacilli Assessment and Plan Plan: Acute on chronic hypoxic respiratory failure Abnormal CT of the chest, bilateral infiltrates, pneumonitis versus edema versus atypical pneumonia Sputum with Gram negative bacilli, pending final culture Dysphagia, status post PEG tube History of esophageal cancer, status post chemo and radiation Hyponatremia Mediastinal lymphadenopathy Elevated troponins Mild pulmonary hypertension Anemia History of tobacco abuse Elevated PSA, ongoing outpatient workup for possible prostate cancer O2 to maintain saturation greater than equal to 88% Antibiotics: Levaquin, Zosyn Solu-Medrol Replace K Bronchodilators and Pulmicort Aspiration precautions Sputum, blood, urine cultures pending final Pending HP panel Diuresis Serial chest x-rays - repeat CXR in AM Check Legionella (pending), mycoplasma (negative), influenza (negative) Dr. Richey per family request for PEG tube issues - plan for PEG tube exchange tomorrow GI and DVT prophylaxis Repeat CT in 4-6 weeks to ensure clearance, if not clearing, patient may need bronchoscopy. Incentive spirometry and pulmonary hygiene
--- NOTE | 2016-12-10 16:45 | P.PN ---
Subjective Principal diagnosis: Acute hypoxic respiratory failure Patient is a 76-year-old male who presented with shortness of breath and evidence of acute hypoxic respiratory failure with possible pneumonia and CHF exacerbation. He is followed by pulmonary and cardiology and infectious disease. Patient still having some shortness of breath. There is concerns about the bilateral pleural effusions. Case discussed with pulmonary service. Ordering a chest ultrasound to assess for possible thoracentesis. On review of systems Patient has no fever or chills no headache no dizziness he has occasional cough Patient denies any chest pain. Denies any nausea or vomiting no abdominal pain no diarrhea Denies any bowel movement changes or urinary symptoms Objective - Vital Signs Vital signs: Vital Signs Temp 97 F L 12/10/16 16:00 Pulse 100 12/10/16 16:38 Resp 19 12/10/16 16:00 BP 140/85 12/10/16 16:00 Pulse Ox 92 L 12/10/16 16:00 Intake & Output 12/09/16 12/10/16 12/10/16 18:59 06:59 18:59 Intake Total 480 480 Output Total 1100 400 500 Balance -620 80 -500 Weight 75.7 kg Intake: Tube Feeding 480 480 Output: Urine 1100 400 500 Other: Voiding Method Urinal Urinal - Exam In general patient is alert and oriented 3 in no apparent distress HEENT head normocephalic and atraumatic Neck is supple no JVD no goiter no lymphadenopathy Cardiac exam reveals regular heart sounds S1 and S2 no gallops no murmurs Chest exam reveals a few scattered rhonchi bilaterally with decreased respiratory sounds in the right base Abdomen is soft nontender no organomegaly with normal bowel sounds Extremity exam reveals no edema no cyanosis or clubbing Neurological examination reveals no gross deficit - Labs CBC & Chem 7: 12/10/16 06:10 12/10/16 14:19 Labs: Abnormal Lab Results - Last 24 Hours (Table) 12/09/16 12/10/16 12/10/16 Range/Units 21:21 06:10 06:10 Hgb 11.5 L (13.0-17.5) gm/dL Hct 36.7 L (39.0-53.0) % RDW 15.6 H (11.5-15.5) % Neutrophils # 8.0 H (1.3-7.7) k/uL Lymphocytes # 0.2 L (1.0-4.8) k/uL Sodium 134 L (137-145) mmol/L Potassium 3.3 L (3.5-5.1) mmol/L Chloride 87 L (98-107) mmol/L Carbon Dioxide 37 H (22-30) mmol/L BUN 41 H (9-20) mg/dL Glucose 140 H (74-99) mg/dL POC Glucose (mg/dL) 138 H (75-99) mg/dL Calcium 8.3 L (8.4-10.2) mg/dL Total Protein 5.9 L (6.3-8.2) g/dL Albumin 3.1 L (3.5-5.0) g/dL 12/10/16 12/10/16 12/10/16 Range/Units 07:21 12:13 14:19 Hgb (13.0-17.5) gm/dL Hct (39.0-53.0) % RDW (11.5-15.5) % Neutrophils # (1.3-7.7) k/uL Lymphocytes # (1.0-4.8) k/uL Sodium (137-145) mmol/L Potassium 3.3 L (3.5-5.1) mmol/L Chloride (98-107) mmol/L Carbon Dioxide (22-30) mmol/L BUN (9-20) mg/dL Glucose (74-99) mg/dL POC Glucose (mg/dL) 135 H 219 H (75-99) mg/dL Calcium (8.4-10.2) mg/dL Total Protein (6.3-8.2) g/dL Albumin (3.5-5.0) g/dL Microbiology - Last 24 Hours (Table) 12/07/16 08:00 Blood Culture - Preliminary Blood No Growth after 72 hours 12/07/16 16:18 Gram Stain - Preliminary Sputum Sputum Culture - Preliminary Gram Neg Bacilli Assessment and Plan Plan: 1. Acute hypoxic respiratory failure with oxygen saturation at 60% on room air. Currently on 6 L sating at 95%. Likely secondary to pneumonia and CHF exacerbation. CTA was negative for PE. Did show interstitial edema bilaterally worsening multifocal groundglass opacity particularly central upper lung suggesting worsening edema and/or infiltrate. Pulmonary service and cardiology have been consulted. Continue nebulizer treatments. Patient was started on Levaquin and Zosyn. Check sputum culture. Infectious diseases ordered lab work. 2. Acute CHF exacerbation: BNP elevated at 17,800. Continue IV Lasix. Echo was suboptimal study for assessment of LV function. Repeat echo with contrast was ordered by cardiology 3. Hyponatremia sodium 122 on admission: Sodium up to 130 today. Continue to monitor 4. 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 Elevated troponin on admission no chest pain. Cardiology will be consulted. Troponin 0.110 EKG had shown sinus tachycardia with PVCs heart rate 116 6. Iron deficiency anemia resume iron supplement 7. Essential hypertension: With accelerated hypertension. Catapres patch has been restarted. The patient will be started on Lasix 8. Hypothyroidism continue Synthroid 9. Elevated PSA level around 14 an outpatient setting. Patient is followed up with urology and they're planning to proceed with biopsy of the prostate at the end of November 29. Nutrition: continue patient's tube feedings. dietitian will be consulted 11. Possible PEG tube replacement during this admission. Dr. Richey following 12. Sinus tachycardia: Heart rate in the 120s. Will change nebulizer treatments to Xopenex and Atrovent discontinued the albuterol. 13. Hypertensive emergency: Cardiology has added Norvasc. Blood pressures have shown improvement. Also Lasix dose was adjusted 14. Bilateral pleural effusions pulmonary service following they've ordered chest ultrasound. Patient possibly will need thoracentesis.
[2016-12-10 17:49] LABS: Glucose,Whole Blood 182 mg/dL (75-99)
[2016-12-10] MEDS: ENOXAPARIN 40 MG/0.4 ML SYRINGE SQ SCH (18:17)
[2016-12-10 19:06] LABS: Magnesium 1.9 mg/dL (1.6-2.3); Potassium 3.1 mmol/L (3.5-5.1)
[2016-12-10 20:55] LABS: Glucose,Whole Blood 117 mg/dL (75-99)
[2016-12-11] MEDS: traZODone HCL 100 MG TAB PO PRN (00:14)
[2016-12-11] MEDS: PIPERACILLIN-TAZOBACTAM 3.375 GM in DEXTROSE/WATER 1 50ML.BAG IVPB SCH ×3 (00:14→18:45)
[2016-12-11] MEDS: guaiFENesin 600 MG TABLET.ER PO SCH ×3 (00:14→20:24)
[2016-12-11] MEDS: POTASSIUM CHLORIDE 10 MEQ, LIDOCAINE 2% INJ 10 MG in SODIUM CHLORIDE 0.9% 100 ML IV SCH ×2 (04:28→06:12)
[2016-12-11] MEDS: methylPREDNISolone SOD SUCCI 125 MG/2 ML VIAL IV SCH ×2 (04:28→18:03)
[2016-12-11 06:00] LABS: Glucose,Whole Blood 220 mg/dL (75-99)
[2016-12-11 07:52] LABS: Basophils % (A) 0 %; CH 25.6; CHCM 30.6; Eosinophils % (A) 0 %; HCT 38.6 % (39.0-53.0); HDW 3.07; HGB 12.1 gm/dL (13.0-17.5); Hypochromasia Moderate; Luc # (Auto) 0.13; Luc % (Auto) 2; Lymphocytes # (A) 0.2 k/uL (1.0-4.8); Lymphocytes % (A) 2 %; MCH 26.3 pg (25.0-35.0); MCHC 31.3 g/dL (31.0-37.0); Mean Platelet Volume 7.4; Monocytes # (A) 0.6 k/uL (0-1.0); Monocytes % (A) 7 %; Neutrophils # (A) 7.7 k/uL (1.3-7.7); Neutrophils % (A) 89 %; RBC 4.59 m/uL (4.30-5.90); RDW 15.2 % (11.5-15.5); WBC 8.7 k/uL (3.8-10.6); WBC (Perox) 8.31
[2016-12-11 08:27] LABS: ALT 31 U/L (21-72); AST 30 U/L (17-59); Alkaline Phosphatase 79 U/L (38-126); Anion Gap 13 mmol/L; Blood Urea Nitrogen 47 mg/dL (9-20); Calcium 8.4 mg/dL (8.4-10.2); Carbon Dioxide 34 mmol/L (22-30); Chloride 87 mmol/L (98-107); Glucose 216 mg/dL (74-99); Non-African American GFR(MDRD) >60 (>60 ml/min/1.73 sqM); Potassium 3.8 mmol/L (3.5-5.1); Sodium 134 mmol/L (137-145); Total Bilirubin 0.8 mg/dL (0.2-1.3); Total Protein 6.3 g/dL (6.3-8.2)
[2016-12-11] MEDS: INSULIN LISPRO (humaLOG) 300 UNIT/3 ML VIAL SQ SCH ×4 (08:43→22:13)
[2016-12-11] MEDS ORDERED: cloNIDine 0.2 MG/24HR PATCH 1 PATCH PATCH TRANSDERM SCH (09:00)
--- NOTE | 2016-12-11 09:00 | XR ---
EXAMINATION TYPE: XR chest 1V portable DATE OF EXAM: 12/11/2016 8:53 AM HISTORY: hypoxia, CHF, effusions. REFERENCE: Previous study dated 12/09/2016. FINDINGS: Lung volumes are prominent. The heart is mildly prominent. There are bilateral effusions. T here is bibasilar airspace disease, unchanged from previous. IMPRESSION: 1. COPD. 2. MILD CARDIOMEGALY. 3. BIBASILAR AIRSPACE DISEASE, UNCHANGED FROM PREVIOUS. 4. BILATERAL EFFUSIONS, GREATER ON THE LEFT.
[2016-12-11] MEDS: BUDESONIDE 0.5 MG/2 ML NEBU INHALATION SCH ×2 (09:21→20:46)
[2016-12-11] MEDS: IPRATROPIUM 0.5 MG/2.5 ML NEBU INHALATION SCH ×4 (09:21→20:46)
[2016-12-11] MEDS: LEVALBUTEROL NEB (CONC) 1.25 MG/0.5 ML AMP INHALATION SCH ×3 (09:21→20:46)
[2016-12-11] MEDS: ENOXAPARIN 40 MG/0.4 ML SYRINGE SQ SCH (09:22)
[2016-12-11] MEDS: METOPROLOL TARTRATE 12.5 MG TAB PO SCH ×2 (09:26→20:24)
[2016-12-11] MEDS: FUROSEMIDE 10 MG/ML 4 ML VIAL IV SCH ×2 (09:36→20:23)
[2016-12-11 11:48] LABS: Glucose,Whole Blood 127 mg/dL (75-99)
--- NOTE | 2016-12-11 12:31 | P.PN ---
Subjective Is a 76-year-old male who presented with shortness of breath and evidence of acute hypoxic respiratory failure with possible pneumonia and CHF exacerbation. He is followed by pulmonary and cardiology and infectious disease. Patient still having some shortness of breath. There is concerns about the bilateral pleural effusions. Case discussed with pulmonary service. Ordering a chest ultrasound and patient will possibly need a nonrebreather. Patient denies any chest pain. Denies any nausea or vomiting. Denies any bowel movement changes or urinary symptoms 12/11/2016 patient is scheduled to have PEG tube exchanged today. Reports improvement in shortness of breath. Patient has been still having sinus tachycardia. Per nursing staff he refused the metoprolol yesterday. Discussed patient the importance of the metoprolol and he is willing to take it. Patient has noted some improvement in his shortness of breath. He denies any chest pain. Denies any nausea or vomiting. Denies any bowel movement changes or urinary symptoms Objective - Vital Signs Vital signs: Vital Signs Temp 98.1 F 12/11/16 04:00 Pulse 110 H 12/11/16 12:21 Resp 18 12/11/16 04:00 BP 148/78 12/11/16 04:00 Pulse Ox 98 12/11/16 09:24 Intake & Output 12/10/16 12/11/16 12/11/16 18:59 06:59 18:59 Intake Total 180 890 Output Total 1300 1150 425 Balance -1120 260 -425 Weight 76 kg Intake: IV 160 0.9NS @ 20 cc/hr 160 Intake, IV Titration 250 Amount Piperacillin-Tazobactam 3 50 .375 gm In Dextrose/Water 1 50ml.bag @ 12.5 mls/hr IVPB Q8HR [facility] Rx#: [id number] Potassium Chloride 10 meq 200 Lidocaine 2% Inj 10 mg In Sodium Chloride 0.9% 100 ml @ 100 mls/hr IV Q1HR [facility] Rx#:[id number] Oral 180 Tube Feeding 480 Output: Urine 1300 1150 425 Other: Voiding Method Urinal # Voids 0 1 - Exam Head normocephalic Neck supple Lungs diminished bilaterally Heart regular rate and rhythm S1-S2, no rub or gallop Abdomen is soft nontender nondistended positive bowel sounds no hepatosplenomegaly Extremities no edema Neuro alert and orientated to 3 - Labs CBC & Chem 7: 12/11/16 06:52 12/11/16 06:52 Labs: Abnormal Lab Results - Last 24 Hours (Table) 12/10/16 12/10/16 12/10/16 Range/Units 12:13 14:19 17:02 Hgb (13.0-17.5) gm/dL Hct (39.0-53.0) % Lymphocytes # (1.0-4.8) k/uL Sodium (137-145) mmol/L Potassium 3.3 L (3.5-5.1) mmol/L Chloride (98-107) mmol/L Carbon Dioxide (22-30) mmol/L BUN (9-20) mg/dL Glucose (74-99) mg/dL POC Glucose (mg/dL) 219 H 182 H (75-99) mg/dL Albumin (3.5-5.0) g/dL 12/10/16 12/10/16 12/11/16 Range/Units 18:21 20:53 05:59 Hgb (13.0-17.5) gm/dL Hct (39.0-53.0) % Lymphocytes # (1.0-4.8) k/uL Sodium (137-145) mmol/L Potassium 3.1 L (3.5-5.1) mmol/L Chloride (98-107) mmol/L Carbon Dioxide (22-30) mmol/L BUN (9-20) mg/dL Glucose (74-99) mg/dL POC Glucose (mg/dL) 117 H 220 H (75-99) mg/dL Albumin (3.5-5.0) g/dL 12/11/16 12/11/16 12/11/16 Range/Units 06:52 06:52 11:47 Hgb 12.1 L (13.0-17.5) gm/dL Hct 38.6 L (39.0-53.0) % Lymphocytes # 0.2 L (1.0-4.8) k/uL Sodium 134 L (137-145) mmol/L Potassium (3.5-5.1) mmol/L Chloride 87 L (98-107) mmol/L Carbon Dioxide 34 H (22-30) mmol/L BUN 47 H (9-20) mg/dL Glucose 216 H (74-99) mg/dL POC Glucose (mg/dL) 127 H (75-99) mg/dL Albumin 3.3 L (3.5-5.0) g/dL Microbiology - Last 24 Hours (Table) 12/07/16 08:00 Blood Culture - Preliminary Blood No Growth after 96 hours 12/07/16 16:18 Gram Stain - Preliminary Sputum Sputum Culture - Preliminary Gram Neg Bacilli Assessment and Plan Plan: 1. Acute hypoxic respiratory failure with oxygen saturation at 60% on room air. Currently on 6 L sating at 95%. Likely secondary to aspiration pneumonia and CHF exacerbation. CTA was negative for PE. Pulmonary service and cardiology have been consulted. Continue nebulizer treatments. Patient was started on Levaquin and Zosyn. Sputum culture growing gram-negative bacilli. Infectious disease following and pulmonary service following. Today's chest x- ray shows bibasilar airspace disease unchanged from previous and bilateral effusions greater on the left 2. Acute systolic CHF exacerbation: Repeat echo shows an EF of 40-45% BNP elevated at 17,800. Continue IV Lasix. They have added losartan and metoprolol 3. Hyponatremia sodium 122 on admission: Sodium up to 134. Continue to monitor 4. 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 Elevated troponin on admission no chest pain. Cardiology will be consulted. Troponin 0.110 EKG had shown sinus tachycardia with PVCs heart rate 116 6. Iron deficiency anemia resume iron supplement 7. Essential hypertension: With accelerated hypertension. Catapres patch has been restarted. The patient will be started on Lasix 8. Hypothyroidism continue Synthroid 9. Elevated PSA level around 14 an outpatient setting. Patient is followed up with urology and they're planning to proceed with biopsy of the prostate at the end of November 29. Nutrition: continue patient's tube feedings. dietitian will be consulted 11. Patient scheduled for PEG tube placement today 12. Sinus tachycardia: Heart rate in the 120s. Will change nebulizer treatments to Xopenex and Atrovent discontinued the albuterol. Cardiology added metoprolol discussed with patient the importance to take it. He initially was refusing it 13. Hypertensive emergency: Medications adjusted during this admission. Blood pressures are showing improvement Norvasc, losartan and metoprolol added per cardiology 14. Bilateral pleural effusions too small to proceed with thoracentesis. Pulmonary following GI prophylaxis Pepcid and DVT prophylaxis Lovenox
--- NOTE | 2016-12-11 13:33 | CDI ---
In responding to this query, please exercise your independent professional judgment. The [facility] Coding Staff and Clinical Documentation Specialists appreciate your assistance in clarifying documentation, maintaining compliance with coding guidelines, accurately documenting patients condition and capturing severity of illness. The fact that a question is asked does not imply that any particular answer is desired or expected. Communication forms are a method of clarifying documentation and are not made part of the Legal Health Record. Thank you in advance for your clarification. Last Revision, May [address] [facility] [place] [address] Documentation Clarification Form Date: 12/11/2016 12:45:00 PM From: Bernice Prince Admit Date: 12/07/2016 9:15:00 AM Patient Name: Cristopher Walker Visit Number: [id number] Discharge Date: Dr. Martinez Richey Malnutrition has been documented as the reason for consult on 12/07/16 and continue in your progress notes. History/Risk Factors: Epiglottis CA, Thyroid Disorder, former smoker Clinical Indicators: Esophageal cancer shortness of breath progressively worsening history of difficulty swallowing, aspiration pneumonia leading to the insertion of a PEG tube Labs: Albumin: 3.3, Total Protein: 6.5, 6.3, Current BMI: 23.4 Insufficient energy intake: Meeting 75 % of estimated nutritional needs (per dietary assessment) Weight Loss: not noted Treatment: Dietary Consult: Yes Supplements/PEG: per orders Lab monitoring Monitor tube feedings In your professional opinion, can you please clarify if these findings signify one of the following conditions? Mild Protein Malnutrition Mild Protein-Calorie Malnutrition Moderate Protein Malnutrition Moderate Protein-Calorie Malnutrition Severe Protein Malnutrition Severe Protein-Calorie Malnutrition Other condition, please specify Unable to determine Please document in your progress notes in order to capture severity of illness and risk of mortality. Include clinical findings that support your diagnosis. FYI: Press F11 to launch patient chart. Place X here if this finding has no clinical significance, is not applicable or if you are not able to provide any additional documentation. MTDD
--- NOTE | 2016-12-11 13:38 | P.PN ---
Subjective Principal diagnosis: Acute hypoxic respiratory failure Patient seen and examined. Patient's and daughter in law at bedside. Patient states his breathing is much better now. He is coughing up copious amounts of green phlegm. He is frequently suctioning. Plan for PEG tube exchange later today. Objective - Vital Signs Vital signs: Vital Signs Temp 97.6 F 12/11/16 08:00 Pulse 110 H 12/11/16 12:21 Resp 18 12/11/16 08:00 BP 190/98 12/11/16 08:00 Pulse Ox 98 12/11/16 09:24 Intake & Output 12/10/16 12/11/16 12/11/16 18:59 06:59 18:59 Intake Total 180 890 480 Output Total 1300 1150 425 Balance -1120 -260 55 Weight 76 kg Intake: IV 160 0.9NS @ 20 cc/hr 160 Intake, IV Titration 250 Amount Piperacillin-Tazobactam 3 50 .375 gm In Dextrose/Water 1 50ml.bag @ 12.5 mls/hr IVPB Q8HR [facility] Rx#: [id number] Potassium Chloride 10 meq 200 Lidocaine 2% Inj 10 mg In Sodium Chloride 0.9% 100 ml @ 100 mls/hr IV Q1HR [facility] Rx#:[id number] Oral 180 Tube Feeding 480 480 Output: Urine 1300 1150 425 Other: Voiding Method Urinal Urinal # Voids 0 1 - Exam Gen.: Patient is alert and oriented 3, no acute distress Cardiovascular: Regular rate and rhythm, S1/S2 Lungs: Coarse breath sounds bilaterally Abdomen: Soft nontender nondistended positive bowel sounds, + PEG tube Extremities: Trace edema - Labs CBC & Chem 7: 12/11/16 06:52 12/11/16 06:52 Labs: Abnormal Lab Results - Last 24 Hours (Table) 12/10/16 12/10/16 12/10/16 Range/Units 14:19 17:02 18:21 Hgb (13.0-17.5) gm/dL Hct (39.0-53.0) % Lymphocytes # (1.0-4.8) k/uL Sodium (137-145) mmol/L Potassium 3.3 L 3.1 L (3.5-5.1) mmol/L Chloride (98-107) mmol/L Carbon Dioxide (22-30) mmol/L BUN (9-20) mg/dL Glucose (74-99) mg/dL POC Glucose (mg/dL) 182 H (75-99) mg/dL Albumin (3.5-5.0) g/dL 12/10/16 12/11/16 12/11/16 Range/Units 20:53 05:59 06:52 Hgb 12.1 L (13.0-17.5) gm/dL Hct 38.6 L (39.0-53.0) % Lymphocytes # 0.2 L (1.0-4.8) k/uL Sodium (137-145) mmol/L Potassium (3.5-5.1) mmol/L Chloride (98-107) mmol/L Carbon Dioxide (22-30) mmol/L BUN (9-20) mg/dL Glucose (74-99) mg/dL POC Glucose (mg/dL) 117 H 220 H (75-99) mg/dL Albumin (3.5-5.0) g/dL 12/11/16 12/11/16 Range/Units 06:52 11:47 Hgb (13.0-17.5) gm/dL Hct (39.0-53.0) % Lymphocytes # (1.0-4.8) k/uL Sodium 134 L (137-145) mmol/L Potassium (3.5-5.1) mmol/L Chloride 87 L (98-107) mmol/L Carbon Dioxide 34 H (22-30) mmol/L BUN 47 H (9-20) mg/dL Glucose 216 H (74-99) mg/dL POC Glucose (mg/dL) 127 H (75-99) mg/dL Albumin 3.3 L (3.5-5.0) g/dL Microbiology - Last 24 Hours (Table) 12/07/16 08:00 Blood Culture - Preliminary Blood No Growth after 96 hours Assessment and Plan Plan: Acute on chronic hypoxic respiratory failure Abnormal CT of the chest, bilateral infiltrates, pneumonitis versus edema versus atypical pneumonia Sputum with Gram negative bacilli, pending final culture Dysphagia, status post PEG tube History of esophageal cancer, status post chemo and radiation Hyponatremia Mediastinal lymphadenopathy Elevated troponins Mild pulmonary hypertension Anemia History of tobacco abuse Elevated PSA, ongoing outpatient workup for possible prostate cancer O2 to maintain saturation greater than equal to 88% Antibiotics: Levaquin, Zosyn Solu-Medrol Replace K Bronchodilators and Pulmicort Aspiration precautions Sputum, blood, urine cultures pending final Pending HP panel Diuresis Serial chest x-rays - repeat CXR in AM Check Legionella (pending), mycoplasma (negative), influenza (negative) Dr. Richey per family request for PEG tube issues - plan for PEG tube exchange today GI and DVT prophylaxis Repeat CT in 4-6 weeks to ensure clearance, if not clearing, patient may need bronchoscopy. Mediastinal lymphadenopathy to be worked up as outpatient Incentive spirometry and pulmonary hygiene
--- NOTE | 2016-12-11 13:45 | P.PN ---
Subjective Principal diagnosis: Pneumonia and congestive heart failure This is a pleasant 76-year-old gentleman with history of esophageal cancer status post chemo and radiation, tube in place, hypothyroidism, prior smoking history, he presented to the hospital with symptoms of dyspnea with associated cough and green sputum production. He apparently had been on antibiotics 3 weeks prior to this admission to the hospital here. Patient also had some PND and orthopnea, he was also found to be tachycardic and hypertensive on admission here. He was seen in consultation by Dr. Salas and has been receiving treatment for pneumonia as well as congestive cardiac failure. Laboratory data from today, hemoglobin 12.1, white blood cell count 8.7, potassium 3.8, BUN 47, creatinine 0.8. Echocardiogram with Doppler study was performed which revealed an ejection fraction of 40-45% with inferior lateral hypokinesia. Overall the patient states she's feeling significantly better today. Family is at the bedside. He continues to be on IV Lasix at this time. Objective - Vital Signs Vital signs: Vital Signs Temp 97.6 F 12/11/16 08:00 Pulse 110 H 12/11/16 12:21 Resp 18 12/11/16 08:00 BP 190/98 12/11/16 08:00 Pulse Ox 98 12/11/16 09:24 Intake & Output 12/10/16 12/11/16 12/11/16 18:59 06:59 18:59 Intake Total 180 890 480 Output Total 1300 1150 425 Balance -1120 -260 55 Weight 76 kg Intake: IV 160 0.9NS @ 20 cc/hr 160 Intake, IV Titration 250 Amount Piperacillin-Tazobactam 3 50 .375 gm In Dextrose/Water 1 50ml.bag @ 12.5 mls/hr IVPB Q8HR [facility] Rx#: [id number] Potassium Chloride 10 meq 200 Lidocaine 2% Inj 10 mg In Sodium Chloride 0.9% 100 ml @ 100 mls/hr IV Q1HR [facility] Rx#:[id number] Oral 180 Tube Feeding 480 480 Output: Urine 1300 1150 425 Other: Voiding Method Urinal Urinal # Voids 0 1 - Exam PHYSICAL EXAMINATION: HEENT: Head is atraumatic, normocephalic. Pupils equal, round. Neck is supple. There is no elevated jugular venous pressure. HEART EXAMINATION: Heart S1, S2 tachycardic. No murmur or gallop heard. CHEST EXAMINATION: Lungs reveal scattered coarse rhonchi with crackles to the bases. ABDOMEN: Soft, nontender. Bowel sounds are heard. No organomegaly noted. EXTREMITIES: 2+ peripheral pulses with trace evidence of peripheral edema and no calf tenderness noted. NEUROLOGIC patient is awake, alert and oriented -3. . - Labs CBC & Chem 7: 12/11/16 06:52 12/11/16 06:52 Labs: Abnormal Lab Results - Last 24 Hours (Table) 12/10/16 12/10/16 12/10/16 Range/Units 14:19 17:02 18:21 Hgb (13.0-17.5) gm/dL Hct (39.0-53.0) % Lymphocytes # (1.0-4.8) k/uL Sodium (137-145) mmol/L Potassium 3.3 L 3.1 L (3.5-5.1) mmol/L Chloride (98-107) mmol/L Carbon Dioxide (22-30) mmol/L BUN (9-20) mg/dL Glucose (74-99) mg/dL POC Glucose (mg/dL) 182 H (75-99) mg/dL Albumin (3.5-5.0) g/dL 12/10/16 12/11/16 12/11/16 Range/Units 20:53 05:59 06:52 Hgb 12.1 L (13.0-17.5) gm/dL Hct 38.6 L (39.0-53.0) % Lymphocytes # 0.2 L (1.0-4.8) k/uL Sodium (137-145) mmol/L Potassium (3.5-5.1) mmol/L Chloride (98-107) mmol/L Carbon Dioxide (22-30) mmol/L BUN (9-20) mg/dL Glucose (74-99) mg/dL POC Glucose (mg/dL) 117 H 220 H (75-99) mg/dL Albumin (3.5-5.0) g/dL 12/11/16 12/11/16 Range/Units 06:52 11:47 Hgb (13.0-17.5) gm/dL Hct (39.0-53.0) % Lymphocytes # (1.0-4.8) k/uL Sodium 134 L (137-145) mmol/L Potassium (3.5-5.1) mmol/L Chloride 87 L (98-107) mmol/L Carbon Dioxide 34 H (22-30) mmol/L BUN 47 H (9-20) mg/dL Glucose 216 H (74-99) mg/dL POC Glucose (mg/dL) 127 H (75-99) mg/dL Albumin 3.3 L (3.5-5.0) g/dL Microbiology - Last 24 Hours (Table) 12/07/16 08:00 Blood Culture - Preliminary Blood No Growth after 96 hours Assessment and Plan Plan: Assessment and plan #1 acute on chronic hypoxic respiratory failure. Evidence of pneumonitis. #2 history of esophageal CA status post chemo and radiation #3 systolic congestive heart failure acute on chronic #4 hyponatremia # 5 abnormal troponins, likely secondary to oxygen supply and demand mismatch, not suggestive of acute myocardial infarction #6 pulmonary hypertension #7 anemia Plan We'll continue current dose of IV Lasix. Monitor intake and output along with daily weights daily lytes BUN and creatinine. DNP note has been reviewed, I agree with a documented findings and plan of care. Patient was seen and examined.
[2016-12-11] MEDS ORDERED: PROPOFOL 10 MG/ML 20 ML VIAL IV ONE (15:22)
[2016-12-11] MEDS ORDERED: LIDOCAINE 1% INJ 10MG/ML (20 ML MDV) ONE (15:22)
[2016-12-11] MEDS ORDERED: IV FLUID CONTINUATION 1,000 ML IV ONE (15:24)
--- NOTE | 2016-12-11 16:11 | P.PCN ---
Date of Procedure: 12/11/16 Preoperative Diagnosis: Postoperative Diagnosis: Procedure(s) Performed: Preoperative Dx: Malfunctioning PEG tube Postoperative Dx: Same Procedure: EGD PEG tube replacement Anesthesia: Sedation Endoscopist: Dr. Richey Specimens: None Endoscopic Procedure: The patient was on the endoscopy table in the left decubitus position. The Olympus gastroscope was inserted into the oropharynx and passed under direct visualization to the region of the third portion of the duodenum. From that point the scope was slowly withdrawn inspecting all surfaces carefully. There were no neoplastic inflammatory or polypoid lesions throughout the duodenum. The pylorus was widely patent. The stomach was carefully inspected. There was the prior PEG tube noted in the antrum. Using gentle traction the PEG tube was pulled through the abdominal wall. Unfortunately the hub of the catheter broke off. We then attempted to remove this first with the snare but that was unsuccessful because of the patient's mid esophageal stricture. Instead the basket was utilized and able to be removed from the stomach through the strictured esophagus without significant difficulty. The new PEG tube had been placed without difficulty as well. This was a 20-Thai non-balloon replacement. The patient was then taken to the recovery room in stable condition per anesthesia guidelines. Recommendations: Resume tube feeds Implants: Indications for Procedure: Operative Findings: Description of Procedure:
[2016-12-11 16:36] LABS: Glucose,Whole Blood 133 mg/dL (75-99)
[2016-12-11] MEDS: FERROUS SULFATE 325 MG TAB PO SCH (17:02)
[2016-12-11] MEDS: LEVOFLOXACIN 750MG-D5W PMX 750 MG in DEXTROSE/WATER 1 150ML.BAG IVPB SCH (17:03)
[2016-12-11] MEDS: LEVOTHYROXINE 75 MCG TAB PO SCH (17:03)
[2016-12-11] MEDS: ASPIRIN 81 MG CHEW PO SCH (17:04)
[2016-12-11] MEDS: LOSARTAN 25 MG TAB PO SCH (17:04)
[2016-12-11] MEDS: FAMOTIDINE 20 MG TAB PO SCH (17:04)
[2016-12-11] MEDS: amLODIPine 5 MG TAB PO SCH (17:04)
[2016-12-11] MEDS: methylPREDNISolone SOD SUCCI 40 MG/ML 1 ML VIAL IV SCH (17:15)
[2016-12-11 20:51] LABS: Glucose,Whole Blood 140 mg/dL (75-99)
[2016-12-11] MEDS: MORPHINE SULFATE 2 MG/ML SYRINGE IVP PRN (21:38)
--- NOTE | 2016-12-11 21:56 | P.PN ---
Subjective Principal diagnosis: Shortness of breath This is a 76-year-old male who has a significant past history of esophageal cancer status post chemotherapy and radiation therapy with PEG tube in place. Patient is also being worked up for possible prostate cancer. Patient states he was treated in [place] for esophageal cancer. Patient states that 2 weeks ago he started having increased phlegm and he normally is able to suck out the sputum in the morning and evening but he's had increased most recently. 2 days ago he started using oxygen which he normally does not use. 3 weeks ago he was placed on antibiotics which he does not recall the name and completed this course. Despite use of oxygen, patient continued to have significant dyspnea with cough congestion and sputum production. Apparently his pulse ox was 60% and he came into [facility] emergency center for evaluation. He was afebrile but tachycardic and hypertensive. White count is 6.6, and electrolyte abnormalities with hyponatremia and hyperchloremia. Kidney function was within normal limits. Troponin was 0.110. ProBNP was 17,800. Albumin was noted to be 3.3. He underwent a chest x-ray that showed worsening interstitial opacity airspace disease right greater than left. Small to moderate right and small left pleural effusion persist. His d- dimer was elevated at 1.81 and he underwent a CAT scan of the chest that showed no pulmonary embolism. Small to moderate bilateral pleural effusions. Interstitial edema bilaterally with worsening multifocal groundglass opacity of either edema and or infiltrate. Influenza testing a and B were negative. Mycoplasma pneumonia IgG and IgM were negative. Blood cultures status received. Sputum cultures in progress. Echocardiogram has been done without acute change. Respiratory status improved. Now on nasal cannula. Receiving respiratory treatments. Sputum culture is showing some gram negative bacilli. Objective - Vital Signs Vital signs: Vital Signs Temp 97.1 F L 12/11/16 12:00 Pulse 94 12/11/16 20:57 Resp 18 12/11/16 20:00 BP 151/87 12/11/16 20:00 Pulse Ox 91 L 12/11/16 17:08 Intake & Output 12/11/16 12/11/16 12/12/16 06:59 18:59 06:59 Intake Total 890 1060 Output Total 1150 1225 Balance -260 -165 Weight 76 kg Intake: IV 160 400 0.9NS @ 20 cc/hr 160 Intake, IV Titration 250 Amount Piperacillin-Tazobactam 3 50 .375 gm In Dextrose/Water 1 50ml.bag @ 12.5 mls/hr IVPB Q8HR [facility] Rx#: [id number] Potassium Chloride 10 meq 200 Lidocaine 2% Inj 10 mg In Sodium Chloride 0.9% 100 ml @ 100 mls/hr IV Q1HR [facility] Rx#:[id number] Oral 180 Tube Feeding 480 480 Output: Urine 1150 1225 Other: Voiding Method Urinal Urinal Urinal # Voids 1 - Exam Gen: This is a 76-year-old male. He is sitting up in bed and appears to be in no acute distress on nasal canula oxygen. He appears to be comfortable. Speech is difficult to understand. HEENT: Head is atraumatic, normocephalic. Pupils equal, round. Sclerae is anicteric. NECK: Supple. No JVD. No lymphadenopathy. No thyromegaly. LUNGS: Improved air exchange. Expiratory wheezes are still noted. Basilar rhonchi are still heard.. No intercostal retractions. HEART: Regular rate and rhythm. No murmur. ABDOMEN: Soft. Bowel sounds are present. No masses. No tenderness. PEG tube noted to the epigastric area with no signs of drainage, infection, tenderness. EXTREMITIES: No pedal edema. No calf tenderness. Dorsalis pedis +2 bilaterally. NEUROLOGICAL: Patient is awake, alert and oriented x3 - Labs CBC & Chem 7: 12/11/16 06:52 12/11/16 06:52 Labs: Abnormal Lab Results - Last 24 Hours (Table) 12/11/16 12/11/16 12/11/16 Range/Units 05:59 06:52 06:52 Hgb 12.1 L (13.0-17.5) gm/dL Hct 38.6 L (39.0-53.0) % Lymphocytes # 0.2 L (1.0-4.8) k/uL Sodium 134 L (137-145) mmol/L Chloride 87 L (98-107) mmol/L Carbon Dioxide 34 H (22-30) mmol/L BUN 47 H (9-20) mg/dL Glucose 216 H (74-99) mg/dL POC Glucose (mg/dL) 220 H (75-99) mg/dL Albumin 3.3 L (3.5-5.0) g/dL 12/11/16 12/11/16 12/11/16 Range/Units 11:47 16:35 20:50 Hgb (13.0-17.5) gm/dL Hct (39.0-53.0) % Lymphocytes # (1.0-4.8) k/uL Sodium (137-145) mmol/L Chloride (98-107) mmol/L Carbon Dioxide (22-30) mmol/L BUN (9-20) mg/dL Glucose (74-99) mg/dL POC Glucose (mg/dL) 127 H 133 H 140 H (75-99) mg/dL Albumin (3.5-5.0) g/dL Microbiology - Last 24 Hours (Table) 12/07/16 08:00 Blood Culture - Preliminary Blood No Growth after 96 hours Laboratory Results WBC 8.7 k/uL (3.8-10.6) 12/11/16 06:52 RBC 4.59 m/uL (4.30-5.90) 12/11/16 06:52 Hgb 12.1 gm/dL (13.0-17.5) L 12/11/16 06:52 Hct 38.6 % (39.0-53.0) L 12/11/16 06:52 MCV 84.0 fL (80.0-100.0) 12/11/16 06:52 MCH 26.3 pg (25.0-35.0) 12/11/16 06:52 MCHC 31.3 g/dL (31.0-37.0) 12/11/16 06:52 RDW 15.2 % (11.5-15.5) 12/11/16 06:52 Plt Count 211 k/uL (150-450) 12/11/16 06:52 Neutrophils % 89 % 12/11/16 06:52 Lymphocytes % 2 % 12/11/16 06:52 Monocytes % 7 % 12/11/16 06:52 Eosinophils % 0 % 12/11/16 06:52 Basophils % 0 % 12/11/16 06:52 Neutrophils # 7.7 k/uL (1.3-7.7) 12/11/16 06:52 Lymphocytes # 0.2 k/uL (1.0-4.8) L 12/11/16 06:52 Monocytes # 0.6 k/uL (0-1.0) 12/11/16 06:52 Eosinophils # 0.0 k/uL (0-0.7) 12/11/16 06:52 Basophils # 0.0 k/uL (0-0.2) 12/11/16 06:52 Hypochromasia Moderate 12/11/16 06:52 Poikilocytosis Slight 12/09/16 07:22 PT 11.6 sec (9.0-12.0) 12/09/16 07:22 INR 1.2 (<1.1) 12/09/16 07:22 APTT 23.6 sec (22.0-30.0) 12/07/16 08:00 D-Dimer 1.81 mg/L FEU (<0.60) H 12/07/16 08:00 Sodium 134 mmol/L (137-145) L 12/11/16 06:52 Potassium 3.8 mmol/L (3.5-5.1) 12/11/16 06:52 Chloride 87 mmol/L (98-107) L 12/11/16 06:52 Carbon Dioxide 34 mmol/L (22-30) H 12/11/16 06:52 Anion Gap 13 mmol/L 12/11/16 06:52 BUN 47 mg/dL (9-20) H 12/11/16 06:52 Creatinine 0.88 mg/dL (0.66-1.25) 12/11/16 06:52 Est GFR (MDRD) Af Amer >60 (>60 ml/min/1.73 sqM) 12/11/16 06:52 Est GFR (MDRD) Non-Af >60 (>60 ml/min/1.73 sqM) 12/11/16 06:52 Glucose 216 mg/dL (74-99) H 12/11/16 06:52 POC Glucose (mg/dL) 140 mg/dL (75-99) H 12/11/16 20:50 POC Glu Box Attacher RHODA Anabelle Nicholas 12/11/16 20:[address] Glu mg/dL 111 mg/dL 12/07/16 08:00 Hemoglobin A1c 5.5 % (4.2-6.1) 12/07/16 08:00 Calcium 8.4 mg/dL (8.4-10.2) 12/11/16 06:52 Magnesium 1.9 mg/dL (1.6-2.3) 12/10/16 18:21 Total Bilirubin 0.8 mg/dL (0.2-1.3) 12/11/16 06:52 AST 30 U/L (17-59) 12/11/16 06:52 ALT 31 U/L (21-72) 12/11/16 06:52 Alkaline Phosphatase 79 U/L (38-126) 12/11/16 06:52 Total Creatine Kinase 28 U/L (55-170) L 12/07/16 08:00 CK-MB (CK-2) 1.8 ng/mL (0.0-2.4) 12/07/16 08:00 CK-MB (CK-2) Rel Index 6.4 12/07/16 08:00 Troponin I 0.110 ng/mL (0.000-0.034) H* 12/07/16 08:00 NT-Pro-B Natriuret Pep 01282 pg/mL 12/07/16 08:00 Total Protein 6.3 g/dL (6.3-8.2) 12/11/16 06:52 Albumin 3.3 g/dL (3.5-5.0) L 12/11/16 06:52 IgE 42.10 IU/mL (0.00-114.00) 12/07/16 08:00 Influenza Type A RNA Not Detected (Not Detectd) 12/07/16 17:30 Influenza Type B (PCR) Not Detected (Not Detectd) 12/07/16 17:30 Urine Legionella Ag Not detected (Not detected) 12/08/16 05:44 Mycoplasma pneumon IgG 0.74 INDEX (<=0.90) 12/07/16 08:00 Mycoplasma pneumon IgM 0.14 INDEX (<=0.90) 12/07/16 08:00 Microbiology 12/07/16 08:00 Blood Blood Culture - Preliminary No Growth after 96 hours 12/07/16 16:18 Sputum Gram Stain - Preliminary 12/07/16 16:18 Sputum Sputum Culture - Preliminary Gram Neg Bacilli - Imaging and Cardiology Chest x-ray: report reviewed (basilar effusons/infiltrate without change) Assessment and Plan (1) Pneumonia Status: Acute (2) Aspiration pneumonia Narrative/Plan: 76 year male presents to Hospital with severe shortness of breath. He has a known history of esophageal cancer and is status post chemotherapy and radiation done in [place]. PEG tube is in place for his feeding. Concerns to prostate cancer also noted. For a few weeks having increasing amounts of sputum production and does suction them out himself. He became much more short of breath and Presented Emergency Center. There Is Evidence of Significant Pneumonia. Concerns to Aspiration Pneumonia Because of the Current Situation. Avonex Therapy Is with Piperacillin Tazobactam Levaquin and Vancomycin. Gram- Positive Cocci Being Seen on the Sputum Gram Stain This Will Continue. Concerns to Strep or MRSA. Patient continues improvement. Shortness of breath is improved. On nasal cannula oxygen. Sputum culture showing some gram-negative bacilli. Continue current antibiotic therapy until further culture data is available. Unclear if his discharge plan will be home or to extended care. Will further direct antibiotic therapy as data is available. Transfer text Status: Acute
[2016-12-12] MEDS: methylPREDNISolone SOD SUCCI 40 MG/ML 1 ML VIAL IV SCH ×3 (00:53→22:19)
[2016-12-12] MEDS: PIPERACILLIN-TAZOBACTAM 3.375 GM in DEXTROSE/WATER 1 50ML.BAG IVPB SCH ×4 (00:53→23:15)
[2016-12-12 06:03] LABS: Glucose,Whole Blood 100 mg/dL (75-99)
[2016-12-12 06:41] LABS: CH 25.7; CHCM 30.6; HCT 38.1 % (39.0-53.0); HDW 3.06; HGB 11.8 gm/dL (13.0-17.5); Hypochromasia Moderate; MCH 26.1 pg (25.0-35.0); MCHC 31.1 g/dL (31.0-37.0); MCV 84.1 fL (80.0-100.0); Mean Platelet Volume 6.9; RBC 4.53 m/uL (4.30-5.90); RDW 15.2 % (11.5-15.5); WBC 15.8 k/uL (3.8-10.6); WBC (Perox) 16.39
[2016-12-12 07:03] LABS: ALT 36 U/L (21-72); AST 33 U/L (17-59); Alkaline Phosphatase 58 U/L (38-126); Anion Gap 11 mmol/L; Blood Urea Nitrogen 52 mg/dL (9-20); Calcium 8.7 mg/dL (8.4-10.2); Carbon Dioxide 36 mmol/L (22-30); Chloride 88 mmol/L (98-107); Glucose 93 mg/dL (74-99); Non-African American GFR(MDRD) >60 (>60 ml/min/1.73 sqM); Potassium 3.4 mmol/L (3.5-5.1); Sodium 135 mmol/L (137-145); Total Bilirubin 0.7 mg/dL (0.2-1.3); Total Protein 5.8 g/dL (6.3-8.2)
[2016-12-12] MEDS ORDERED: Potassium Replacement Protocol 1 EACH MISC MISCELLANE PRN (07:10)
[2016-12-12] MEDS: INSULIN LISPRO (humaLOG) 300 UNIT/3 ML VIAL SQ SCH ×4 (07:10→22:19)
[2016-12-12] MEDS: BUDESONIDE 0.5 MG/2 ML NEBU INHALATION SCH ×2 (07:22→19:22)
[2016-12-12] MEDS: IPRATROPIUM 0.5 MG/2.5 ML NEBU INHALATION SCH ×4 (07:23→19:22)
[2016-12-12] MEDS: LEVALBUTEROL NEB (CONC) 1.25 MG/0.5 ML AMP INHALATION SCH ×3 (07:23→19:22)
[2016-12-12 07:59] LABS: Add Differential Manual Differential
[2016-12-12 08:00] LABS: Nucleated Red Blood Cells 0 /100 WBC (0-0); Polychromasia Present; Total Cells Counted 100
[2016-12-12] MEDS: POTASSIUM CHLORIDE 10 MEQ, LIDOCAINE 2% INJ 10 MG in SODIUM CHLORIDE 0.9% 100 ML IV SCH ×2 (08:49→11:07)
[2016-12-12] MEDS: ASPIRIN 81 MG CHEW PO SCH (08:50)
[2016-12-12] MEDS: FERROUS SULFATE 325 MG TAB PO SCH (08:51)
[2016-12-12] MEDS: ENOXAPARIN 40 MG/0.4 ML SYRINGE SQ SCH (08:51)
[2016-12-12] MEDS: FUROSEMIDE 10 MG/ML 4 ML VIAL IV SCH ×2 (08:51→22:18)
[2016-12-12] MEDS: guaiFENesin 600 MG TABLET.ER PO SCH ×2 (08:51→22:18)
[2016-12-12] MEDS: LEVOTHYROXINE 75 MCG TAB PO SCH (08:51)
[2016-12-12] MEDS: amLODIPine 5 MG TAB PO SCH (08:51)
[2016-12-12] MEDS: LOSARTAN 25 MG TAB PO SCH (08:52)
[2016-12-12] MEDS: METOPROLOL TARTRATE 12.5 MG TAB PO SCH ×2 (08:52→22:18)
[2016-12-12] MEDS: MORPHINE SULFATE 2 MG/ML SYRINGE IVP PRN ×2 (09:09→22:27)
[2016-12-12 11:54] LABS: Glucose,Whole Blood 328 mg/dL (75-99)
[2016-12-12] MEDS: FAMOTIDINE 20 MG TAB PO SCH (12:03)
--- NOTE | 2016-12-12 13:02 | P.PN ---
Subjective Principal diagnosis: Malnutrition Patient without complaints. He did have some drainage from around the PEG tube site. No pain. Objective - Vital Signs Vital signs: Vital Signs Temp 97.4 F L 12/12/16 12:00 Pulse 92 12/12/16 12:47 Resp 18 12/12/16 12:00 BP 139/63 12/12/16 12:00 Pulse Ox 93 L 12/12/16 12:00 Intake & Output 12/11/16 12/12/16 12/12/16 18:59 06:59 18:59 Intake Total 1060 480 Output Total 1225 Balance -165 480 Weight 75.1 kg Intake: IV 400 Oral 180 Tube Feeding 480 480 Output: Urine 1225 Other: Voiding Method Urinal Urinal - Exam Abdomen: Soft, nondistended, PEG tube intact - Labs CBC & Chem 7: 12/12/16 06:04 12/12/16 06:04 Labs: Abnormal Lab Results - Last 24 Hours (Table) 12/11/16 12/11/16 12/12/16 Range/Units 16:35 20:50 06:02 WBC (3.8-10.6) k/uL Hgb (13.0-17.5) gm/dL Hct (39.0-53.0) % Neutrophils # (Manual) (1.3-7.7) k/uL Lymphocytes # (Manual) (1.0-4.8) k/uL Sodium (137-145) mmol/L Potassium (3.5-5.1) mmol/L Chloride (98-107) mmol/L Carbon Dioxide (22-30) mmol/L BUN (9-20) mg/dL POC Glucose (mg/dL) 133 H 140 H 100 H (75-99) mg/dL Total Protein (6.3-8.2) g/dL Albumin (3.5-5.0) g/dL 12/12/16 12/12/16 12/12/16 Range/Units 06:04 06:04 11:52 WBC 15.8 H (3.8-10.6) k/uL Hgb 11.8 L (13.0-17.5) gm/dL Hct 38.1 L (39.0-53.0) % Neutrophils # (Manual) 14.2 H (1.3-7.7) k/uL Lymphocytes # (Manual) 0.6 L (1.0-4.8) k/uL Sodium 135 L (137-145) mmol/L Potassium 3.4 L (3.5-5.1) mmol/L Chloride 88 L (98-107) mmol/L Carbon Dioxide 36 H (22-30) mmol/L BUN 52 H (9-20) mg/dL POC Glucose (mg/dL) 328 H (75-99) mg/dL Total Protein 5.8 L (6.3-8.2) g/dL Albumin 3.1 L (3.5-5.0) g/dL Microbiology - Last 24 Hours (Table) 12/07/16 08:00 Blood Culture - Preliminary Blood No Growth after 120 hours Assessment and Plan (1) Malnutrition Narrative/Plan: Continue tube feeds as tolerated. Stable for discharge from my standpoint. Status: Acute
[2016-12-12] MEDS: LEVOFLOXACIN 750MG-D5W PMX 750 MG in DEXTROSE/WATER 1 150ML.BAG IVPB SCH (13:04)
[2016-12-12 17:23] LABS: Glucose,Whole Blood 165 mg/dL (75-99)
--- NOTE | 2016-12-12 18:29 | P.PN ---
Subjective Principal diagnosis: Acute hypoxic respiratory failure Patient seen and examined. Patient states his breathing is getting better. He is wanting to get out of bed and work with physical therapy. He said his PEG tube exchange went well. He has no other issues or complaints. Objective - Vital Signs Vital signs: Vital Signs Temp 97.0 F L 12/12/16 14:54 Pulse 94 12/12/16 15:49 Resp 18 12/12/16 14:54 BP 116/54 12/12/16 14:54 Pulse Ox 97 12/12/16 15:38 Intake & Output 12/11/16 12/12/16 12/12/16 18:59 06:59 18:59 Intake Total 1060 480 Output Total 1225 Balance -165 480 Weight 75.1 kg Intake: IV 400 Oral 180 Tube Feeding 480 480 Output: Urine 1225 Other: Voiding Method Urinal Urinal - Exam Gen.: Patient is alert and oriented 3, no acute distress Cardiovascular: Regular rate and rhythm, S1/S2 Lungs: Coarse breath sounds bilaterally Abdomen: Soft nontender nondistended positive bowel sounds, + PEG tube Extremities: Trace edema - Labs CBC & Chem 7: 12/12/16 06:04 12/12/16 06:04 Labs: Abnormal Lab Results - Last 24 Hours (Table) 12/11/16 12/12/16 12/12/16 Range/Units 20:50 06:02 06:04 WBC 15.8 H (3.8-10.6) k/uL Hgb 11.8 L (13.0-17.5) gm/dL Hct 38.1 L (39.0-53.0) % Neutrophils # (Manual) 14.2 H (1.3-7.7) k/uL Lymphocytes # (Manual) 0.6 L (1.0-4.8) k/uL Sodium (137-145) mmol/L Potassium (3.5-5.1) mmol/L Chloride (98-107) mmol/L Carbon Dioxide (22-30) mmol/L BUN (9-20) mg/dL POC Glucose (mg/dL) 140 H 100 H (75-99) mg/dL Total Protein (6.3-8.2) g/dL Albumin (3.5-5.0) g/dL 12/12/16 12/12/16 12/12/16 Range/Units 06:04 11:52 17:22 WBC (3.8-10.6) k/uL Hgb (13.0-17.5) gm/dL Hct (39.0-53.0) % Neutrophils # (Manual) (1.3-7.7) k/uL Lymphocytes # (Manual) (1.0-4.8) k/uL Sodium 135 L (137-145) mmol/L Potassium 3.4 L (3.5-5.1) mmol/L Chloride 88 L (98-107) mmol/L Carbon Dioxide 36 H (22-30) mmol/L BUN 52 H (9-20) mg/dL POC Glucose (mg/dL) 328 H 165 H (75-99) mg/dL Total Protein 5.8 L (6.3-8.2) g/dL Albumin 3.1 L (3.5-5.0) g/dL Microbiology - Last 24 Hours (Table) 12/07/16 08:00 Blood Culture - Preliminary Blood No Growth after 120 hours Assessment and Plan Plan: Acute on chronic hypoxic respiratory failure Abnormal CT of the chest, bilateral infiltrates, pneumonitis versus edema versus atypical pneumonia Sputum with Gram negative bacilli, pending final culture Dysphagia, status post PEG tube History of esophageal cancer, status post chemo and radiation Hyponatremia Mediastinal lymphadenopathy Elevated troponins Mild pulmonary hypertension Anemia History of tobacco abuse Elevated PSA, ongoing outpatient workup for possible prostate cancer O2 to maintain saturation greater than equal to 88% Antibiotics: Levaquin, Zosyn Solu-Medrol taper Bronchodilators and Pulmicort Aspiration precautions Sputum, blood, urine cultures pending final Pending HP panel Diuresis Check Legionella (pending), mycoplasma (negative), influenza (negative) GI and DVT prophylaxis Repeat CT in 4-6 weeks to ensure clearance, if not clearing, patient may need bronchoscopy. Mediastinal lymphadenopathy to be worked up as outpatient Incentive spirometry and pulmonary hygiene
--- NOTE | 2016-12-12 19:21 | P.PN ---
Subjective Principal diagnosis: Acute hypoxic respiratory failure Patient is a 76-year-old male who presented with shortness of breath and evidence of acute hypoxic respiratory failure with possible pneumonia and CHF exacerbation. He is followed by pulmonary and cardiology and infectious disease. Patient still having some shortness of breath. There is concerns about the bilateral pleural effusions. Case discussed with pulmonary service. Ordering a chest ultrasound to assess for possible thoracentesis. On review of systems Patient has no fever or chills no headache no dizziness he has occasional cough Patient denies any chest pain. Denies any nausea or vomiting no abdominal pain no diarrhea Denies any bowel movement changes or urinary symptoms Objective - Vital Signs Vital signs: Vital Signs Temp 97.0 F L 12/12/16 14:54 Pulse 94 12/12/16 15:49 Resp 18 12/12/16 14:54 BP 116/54 12/12/16 14:54 Pulse Ox 97 12/12/16 15:38 Intake & Output 12/12/16 12/12/16 12/13/16 06:59 18:59 06:59 Intake Total 480 Balance 480 Weight 75.1 kg Intake: Tube Feeding 480 Other: Voiding Method Urinal - Exam In general patient is alert and oriented 3 in no apparent distress HEENT head normocephalic and atraumatic Neck is supple no JVD no goiter no lymphadenopathy Cardiac exam reveals regular heart sounds S1 and S2 no gallops no murmurs Chest exam reveals a few scattered rhonchi bilaterally with decreased respiratory sounds in the right base Abdomen is soft nontender no organomegaly with normal bowel sounds Extremity exam reveals no edema no cyanosis or clubbing Neurological examination reveals no gross deficit - Labs CBC & Chem 7: 12/12/16 06:04 12/12/16 06:04 Labs: Abnormal Lab Results - Last 24 Hours (Table) 12/11/16 12/12/16 12/12/16 Range/Units 20:50 06:02 06:04 WBC 15.8 H (3.8-10.6) k/uL Hgb 11.8 L (13.0-17.5) gm/dL Hct 38.1 L (39.0-53.0) % Neutrophils # (Manual) 14.2 H (1.3-7.7) k/uL Lymphocytes # (Manual) 0.6 L (1.0-4.8) k/uL Sodium (137-145) mmol/L Potassium (3.5-5.1) mmol/L Chloride (98-107) mmol/L Carbon Dioxide (22-30) mmol/L BUN (9-20) mg/dL POC Glucose (mg/dL) 140 H 100 H (75-99) mg/dL Total Protein (6.3-8.2) g/dL Albumin (3.5-5.0) g/dL 12/12/16 12/12/16 12/12/16 Range/Units 06:04 11:52 17:22 WBC (3.8-10.6) k/uL Hgb (13.0-17.5) gm/dL Hct (39.0-53.0) % Neutrophils # (Manual) (1.3-7.7) k/uL Lymphocytes # (Manual) (1.0-4.8) k/uL Sodium 135 L (137-145) mmol/L Potassium 3.4 L (3.5-5.1) mmol/L Chloride 88 L (98-107) mmol/L Carbon Dioxide 36 H (22-30) mmol/L BUN 52 H (9-20) mg/dL POC Glucose (mg/dL) 328 H 165 H (75-99) mg/dL Total Protein 5.8 L (6.3-8.2) g/dL Albumin 3.1 L (3.5-5.0) g/dL Microbiology - Last 24 Hours (Table) 12/07/16 16:18 Gram Stain - Final Sputum Sputum Culture - Preliminary Gram Neg Bacilli 12/07/16 08:00 Blood Culture - Preliminary Blood No Growth after 120 hours Assessment and Plan Plan: 1. Acute hypoxic respiratory failure with oxygen saturation at 60% on room air. Currently on 6 L sating at 95%. Likely secondary to pneumonia and CHF exacerbation. CTA was negative for PE. Did show interstitial edema bilaterally worsening multifocal groundglass opacity particularly central upper lung suggesting worsening edema and/or infiltrate. Pulmonary service and cardiology have been consulted. Continue nebulizer treatments. Patient was started on Levaquin and Zosyn. Check sputum culture. Infectious diseases ordered lab work. 2. Acute CHF exacerbation: BNP elevated at 17,800. Continue IV Lasix. Echo was suboptimal study for assessment of LV function. Repeat echo with contrast was ordered by cardiology 3. Hyponatremia sodium 122 on admission: Sodium up to 130 today. Continue to monitor 4. 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 Elevated troponin on admission no chest pain. Cardiology will be consulted. Troponin 0.110 EKG had shown sinus tachycardia with PVCs heart rate 116 6. Iron deficiency anemia resume iron supplement 7. Essential hypertension: With accelerated hypertension. Catapres patch has been restarted. The patient will be started on Lasix 8. Hypothyroidism continue Synthroid 9. Elevated PSA level around 14 an outpatient setting. Patient is followed up with urology and they're planning to proceed with biopsy of the prostate at the end of November 29. Nutrition: continue patient's tube feedings. dietitian will be consulted 11. Possible PEG tube replacement during this admission. Dr. Richey following 12. Sinus tachycardia: Heart rate in the 120s. Will change nebulizer treatments to Xopenex and Atrovent discontinued the albuterol. 13. Hypertensive emergency: Cardiology has added Norvasc. Blood pressures have shown improvement. Also Lasix dose was adjusted 14. Bilateral pleural effusions pulmonary service following they've ordered chest ultrasound. Patient possibly will need thoracentesis.
[2016-12-12 21:35] LABS: Glucose,Whole Blood 99 mg/dL (75-99)
[2016-12-12] MEDS: FLUTICASONE 50MCG/SPRAY NASAL 16GM EA NOSTRIL SCH (22:19)
--- NOTE | 2016-12-12 23:11 | P.PN ---
Subjective Principal diagnosis: Shortness of breath This is a 76-year-old male who has a significant past history of esophageal cancer status post chemotherapy and radiation therapy with PEG tube in place. Patient is also being worked up for possible prostate cancer. Patient states he was treated in [place] for esophageal cancer. Patient states that 2 weeks ago he started having increased phlegm and he normally is able to suck out the sputum in the morning and evening but he's had increased most recently. 2 days ago he started using oxygen which he normally does not use. 3 weeks ago he was placed on antibiotics which he does not recall the name and completed this course. Despite use of oxygen, patient continued to have significant dyspnea with cough congestion and sputum production. Apparently his pulse ox was 60% and he came into [facility] emergency center for evaluation. He was afebrile but tachycardic and hypertensive. White count is 6.6, and electrolyte abnormalities with hyponatremia and hyperchloremia. Kidney function was within normal limits. Troponin was 0.110. ProBNP was 17,800. Albumin was noted to be 3.3. He underwent a chest x-ray that showed worsening interstitial opacity airspace disease right greater than left. Small to moderate right and small left pleural effusion persist. His d- dimer was elevated at 1.81 and he underwent a CAT scan of the chest that showed no pulmonary embolism. Small to moderate bilateral pleural effusions. Interstitial edema bilaterally with worsening multifocal groundglass opacity of either edema and or infiltrate. Influenza testing a and B were negative. Mycoplasma pneumonia IgG and IgM were negative. Blood cultures status received. Sputum cultures in progress. Echocardiogram has been done without acute change. Respiratory status improved. Now on nasal cannula. Receiving respiratory treatments. Sputum culture is showing some gram negative bacilli. Objective - Vital Signs Vital signs: Vital Signs Temp 97.0 F L 12/12/16 14:54 Pulse 92 12/12/16 19:36 Resp 18 12/12/16 14:54 BP 116/54 12/12/16 14:54 Pulse Ox 97 12/12/16 15:38 Intake & Output 12/12/16 12/12/16 12/13/16 06:59 18:59 06:59 Intake Total 480 Balance 480 Weight 75.1 kg Intake: Tube Feeding 480 Other: Voiding Method Urinal - Exam Gen: This is a 76-year-old male. He is sitting up in bed and appears to be in no acute distress on nasal canula oxygen. He appears to be comfortable. Speech is difficult to understand. HEENT: Head is atraumatic, normocephalic. Pupils equal, round. Sclerae is anicteric. NECK: Supple. No JVD. No lymphadenopathy. No thyromegaly. LUNGS: Improved air exchange. Expiratory wheezes are still noted. Basilar rhonchi are still heard.. No intercostal retractions. HEART: Regular rate and rhythm. No murmur. ABDOMEN: Soft. Bowel sounds are present. No masses. No tenderness. PEG tube noted to the epigastric area with no signs of drainage, infection, tenderness. EXTREMITIES: No pedal edema. No calf tenderness. Dorsalis pedis +2 bilaterally. NEUROLOGICAL: Patient is awake, alert and oriented x3 - Labs CBC & Chem 7: 12/12/16 06:04 12/12/16 06:04 Labs: Abnormal Lab Results - Last 24 Hours (Table) 12/12/16 12/12/16 12/12/16 Range/Units 06:02 06:04 06:04 WBC 15.8 H (3.8-10.6) k/uL Hgb 11.8 L (13.0-17.5) gm/dL Hct 38.1 L (39.0-53.0) % Neutrophils # (Manual) 14.2 H (1.3-7.7) k/uL Lymphocytes # (Manual) 0.6 L (1.0-4.8) k/uL Sodium 135 L (137-145) mmol/L Potassium 3.4 L (3.5-5.1) mmol/L Chloride 88 L (98-107) mmol/L Carbon Dioxide 36 H (22-30) mmol/L BUN 52 H (9-20) mg/dL POC Glucose (mg/dL) 100 H (75-99) mg/dL Total Protein 5.8 L (6.3-8.2) g/dL Albumin 3.1 L (3.5-5.0) g/dL 12/12/16 12/12/16 Range/Units 11:52 17:22 WBC (3.8-10.6) k/uL Hgb (13.0-17.5) gm/dL Hct (39.0-53.0) % Neutrophils # (Manual) (1.3-7.7) k/uL Lymphocytes # (Manual) (1.0-4.8) k/uL Sodium (137-145) mmol/L Potassium (3.5-5.1) mmol/L Chloride (98-107) mmol/L Carbon Dioxide (22-30) mmol/L BUN (9-20) mg/dL POC Glucose (mg/dL) 328 H 165 H (75-99) mg/dL Total Protein (6.3-8.2) g/dL Albumin (3.5-5.0) g/dL Microbiology - Last 24 Hours (Table) 12/07/16 16:18 Gram Stain - Final Sputum Sputum Culture - Preliminary Gram Neg Bacilli 12/07/16 08:00 Blood Culture - Preliminary Blood No Growth after 120 hours Laboratory Results WBC 15.8 k/uL (3.8-10.6) H 12/12/16 06:04 RBC 4.53 m/uL (4.30-5.90) 12/12/16 06:04 Hgb 11.8 gm/dL (13.0-17.5) L 12/12/16 06:04 Hct 38.1 % (39.0-53.0) L 12/12/16 06:04 MCV 84.1 fL (80.0-100.0) 12/12/16 06:04 MCH 26.1 pg (25.0-35.0) 12/12/16 06:04 MCHC 31.1 g/dL (31.0-37.0) 12/12/16 06:04 RDW 15.2 % (11.5-15.5) 12/12/16 06:04 Plt Count 205 k/uL (150-450) 12/12/16 06:04 Neutrophils % 89 % 12/11/16 06:52 Neutrophils % (Manual) 88.0 % 12/12/16 06:04 Band Neutrophils % 2.0 % 12/12/16 06:04 Lymphocytes % 2 % 12/11/16 06:52 Lymphocytes % (Manual) 4.0 % 12/12/16 06:04 Monocytes % 7 % 12/11/16 06:52 Monocytes % (Manual) 6.0 % 12/12/16 06:04 Eosinophils % 0 % 12/11/16 06:52 Basophils % 0 % 12/11/16 06:52 Neutrophils # 7.7 k/uL (1.3-7.7) 12/11/16 06:52 Neutrophils # (Manual) 14.2 k/uL (1.3-7.7) H 12/12/16 06:04 Lymphocytes # 0.2 k/uL (1.0-4.8) L 12/11/16 06:52 Lymphocytes # (Manual) 0.6 k/uL (1.0-4.8) L 12/12/16 06:04 Monocytes # 0.6 k/uL (0-1.0) 12/11/16 06:52 Monocytes # (Manual) 0.9 k/uL (0-1.0) 12/12/16 06:04 Eosinophils # 0.0 k/uL (0-0.7) 12/11/16 06:52 Basophils # 0.0 k/uL (0-0.2) 12/11/16 06:52 Nucleated RBCs 0 /100 WBC (0-0) 12/12/16 06:04 Polychromasia Present 12/12/16 06:04 Hypochromasia Moderate 12/12/16 06:04 Poikilocytosis Slight 12/09/16 07:22 PT 11.6 sec (9.0-12.0) 12/09/16 07:22 INR 1.2 (<1.1) 12/09/16 07:22 APTT 23.6 sec (22.0-30.0) 12/07/16 08:00 D-Dimer 1.81 mg/L FEU (<0.60) H 12/07/16 08:00 Sodium 135 mmol/L (137-145) L 12/12/16 06:04 Potassium 3.4 mmol/L (3.5-5.1) L 12/12/16 06:04 Chloride 88 mmol/L (98-107) L 12/12/16 06:04 Carbon Dioxide 36 mmol/L (22-30) H 12/12/16 06:04 Anion Gap 11 mmol/L 12/12/16 06:04 BUN 52 mg/dL (9-20) H 12/12/16 06:04 Creatinine 1.00 mg/dL (0.66-1.25) 12/12/16 06:04 Est GFR (MDRD) Af Amer >60 (>60 ml/min/1.73 sqM) 12/12/16 06:04 Est GFR (MDRD) Non-Af >60 (>60 ml/min/1.73 sqM) 12/12/16 06:04 Glucose 93 mg/dL (74-99) 12/12/16 06:04 POC Glucose (mg/dL) 99 mg/dL (75-99) 12/12/16 21:30 POC Glu Hospice Liaison Liane Dominguez 12/12/16 21:[address] Glu mg/dL 111 mg/dL 12/07/16 08:00 Hemoglobin A1c 5.5 % (4.2-6.1) 12/07/16 08:00 Calcium 8.7 mg/dL (8.4-10.2) 12/12/16 06:04 Magnesium 1.9 mg/dL (1.6-2.3) 12/10/16 18:21 Total Bilirubin 0.7 mg/dL (0.2-1.3) 12/12/16 06:04 AST 33 U/L (17-59) 12/12/16 06:04 ALT 36 U/L (21-72) 12/12/16 06:04 Alkaline Phosphatase 58 U/L (38-126) 12/12/16 06:04 Total Creatine Kinase 28 U/L (55-170) L 12/07/16 08:00 CK-MB (CK-2) 1.8 ng/mL (0.0-2.4) 12/07/16 08:00 CK-MB (CK-2) Rel Index 6.4 12/07/16 08:00 Troponin I 0.110 ng/mL (0.000-0.034) H* 12/07/16 08:00 NT-Pro-B Natriuret Pep [id number] pg/mL 12/07/16 08:00 Total Protein 5.8 g/dL (6.3-8.2) L 12/12/16 06:04 Albumin 3.1 g/dL (3.5-5.0) L 12/12/16 06:04 IgE 42.10 IU/mL (0.00-114.00) 12/07/16 08:00 Influenza Type A RNA Not Detected (Not Detectd) 12/07/16 17:30 Influenza Type B (PCR) Not Detected (Not Detectd) 12/07/16 17:30 Urine Legionella Ag Not detected (Not detected) 12/08/16 05:44 Mycoplasma pneumon IgG 0.74 INDEX (<=0.90) 12/07/16 08:00 Mycoplasma pneumon IgM 0.14 INDEX (<=0.90) 12/07/16 08:00 Microbiology 12/07/16 16:18 Sputum Gram Stain - Final 12/07/16 16:18 Sputum Sputum Culture - Preliminary Gram Neg Bacilli 12/07/16 08:00 Blood Blood Culture - Preliminary No Growth after 120 hours Assessment and Plan (1) Pneumonia Status: Acute (2) Aspiration pneumonia Narrative/Plan: 76 year male presents to Hospital with severe shortness of breath. He has a known history of esophageal cancer and is status post chemotherapy and radiation done in [place]. PEG tube is in place for his feeding. Concerns to prostate cancer also noted. For a few weeks having increasing amounts of sputum production and does suction them out himself. He became much more short of breath and Presented Emergency Center. There Is Evidence of Significant Pneumonia. Concerns to Aspiration Pneumonia Because of the Current Situation. Avonex Therapy Is with Piperacillin Tazobactam Levaquin and Vancomycin. Gram- Positive Cocci Being Seen on the Sputum Gram Stain This Will Continue. Concerns to Strep or MRSA. Patient continues improvement. Shortness of breath is improved. On nasal cannula oxygen. Sputum culture showing some gram-negative bacilli. Continue current antibiotic therapy until further culture data is available. Unclear if his discharge plan will be home or to extended care. Will further direct antibiotic therapy as data is available. Status: Acute
[2016-12-12] MEDS: traZODone HCL 100 MG TAB PO PRN (23:15)
[2016-12-13] MEDS: LEVOTHYROXINE 75 MCG TAB PO SCH (06:25)
[2016-12-13 07:33] LABS: Glucose,Whole Blood 145 mg/dL (75-99)
[2016-12-13] MEDS: INSULIN LISPRO (humaLOG) 300 UNIT/3 ML VIAL SQ SCH ×4 (07:57→22:32)
[2016-12-13] MEDS: FLUTICASONE 50MCG/SPRAY NASAL 16GM EA NOSTRIL SCH ×2 (07:57→22:28)
[2016-12-13] MEDS: ENOXAPARIN 40 MG/0.4 ML SYRINGE SQ SCH (07:58)
[2016-12-13] MEDS: PIPERACILLIN-TAZOBACTAM 3.375 GM in DEXTROSE/WATER 1 50ML.BAG IVPB SCH ×2 (07:59→16:00)
[2016-12-13] MEDS: guaiFENesin 600 MG TABLET.ER PO SCH ×2 (08:00→22:32)
[2016-12-13] MEDS: LOSARTAN 25 MG TAB PO SCH (08:00)
[2016-12-13] MEDS: ASPIRIN 81 MG CHEW PO SCH (08:00)
[2016-12-13] MEDS: amLODIPine 5 MG TAB PO SCH (08:01)
[2016-12-13] MEDS: methylPREDNISolone SOD SUCCI 40 MG/ML 1 ML VIAL IV SCH ×2 (08:01→22:32)
[2016-12-13] MEDS: FERROUS SULFATE 325 MG TAB PO SCH (08:01)
[2016-12-13] MEDS: METOPROLOL TARTRATE 12.5 MG TAB PO SCH ×2 (08:01→22:32)
[2016-12-13] MEDS: FUROSEMIDE 10 MG/ML 4 ML VIAL IV SCH ×2 (08:01→22:32)
[2016-12-13] MEDS: LEVALBUTEROL NEB (CONC) 1.25 MG/0.5 ML AMP INHALATION SCH ×3 (08:03→20:03)
[2016-12-13] MEDS: BUDESONIDE 0.5 MG/2 ML NEBU INHALATION SCH ×2 (08:03→20:03)
[2016-12-13] MEDS: IPRATROPIUM 0.5 MG/2.5 ML NEBU INHALATION SCH ×4 (08:03→20:03)
[2016-12-13] MEDS: MORPHINE SULFATE 2 MG/ML SYRINGE IVP PRN ×2 (08:14→22:34)
[2016-12-13 10:39] LABS: Basophils % (A) 0 %; CH 25.8; CHCM 30.4; Eosinophils % (A) 0 %; HCT 37.8 % (39.0-53.0); HDW 2.97; HGB 11.7 gm/dL (13.0-17.5); Hypochromasia Marked; Luc # (Auto) 0.04; Luc % (Auto) 0; Lymphocytes # (A) 0.2 k/uL (1.0-4.8); Lymphocytes % (A) 2 %; MCH 26.5 pg (25.0-35.0); MCV 85.4 fL (80.0-100.0); Mean Platelet Volume 7.4; Monocytes # (A) 0.4 k/uL (0-1.0); Monocytes % (A) 4 %; Neutrophils % (A) 94 %; RBC 4.43 m/uL (4.30-5.90); RDW 15.3 % (11.5-15.5); WBC 10.6 k/uL (3.8-10.6); WBC (Perox) 11.23
[2016-12-13 11:11] LABS: ALT 33 U/L (21-72); AST 28 U/L (17-59); Alkaline Phosphatase 55 U/L (38-126); Anion Gap 10 mmol/L; Blood Urea Nitrogen 72 mg/dL (9-20); Calcium 8.7 mg/dL (8.4-10.2); Carbon Dioxide 37 mmol/L (22-30); Chloride 88 mmol/L (98-107); Glucose 87 mg/dL (74-99); Non-African American GFR(MDRD) 56 (>60 ml/min/1.73 sqM); Potassium 3.8 mmol/L (3.5-5.1); Sodium 135 mmol/L (137-145); Total Bilirubin 0.8 mg/dL (0.2-1.3); Total Protein 5.6 g/dL (6.3-8.2)
[2016-12-13 11:45] VITALS: BMI 24.3
[2016-12-13 12:10] LABS: Glucose,Whole Blood 144 mg/dL (75-99)
[2016-12-13] MEDS: LEVOFLOXACIN 750MG-D5W PMX 750 MG in DEXTROSE/WATER 1 150ML.BAG IVPB SCH (12:10)
[2016-12-13] MEDS: FAMOTIDINE 20 MG TAB PO SCH (16:01)
--- NOTE | 2016-12-13 16:56 | P.PN ---
Subjective Principal diagnosis: Acute hypoxic respiratory failure Patient is a 76-year-old male who presented with shortness of breath and evidence of acute hypoxic respiratory failure with possible pneumonia and CHF exacerbation. He is followed by pulmonary and cardiology and infectious disease. Patient still having some shortness of breath. There is concerns about the bilateral pleural effusions. Case discussed with pulmonary service. Ordering a chest ultrasound to assess for possible thoracentesis. On review of systems Patient has no fever or chills no headache no dizziness he has occasional cough Patient denies any chest pain. Denies any nausea or vomiting no abdominal pain no diarrhea Denies any bowel movement changes or urinary symptoms Objective - Vital Signs Vital signs: Vital Signs Temp 97.4 F L 12/13/16 15:00 Pulse 90 12/13/16 16:11 Resp 22 12/13/16 15:47 BP 163/77 12/13/16 15:00 Pulse Ox 92 L 12/13/16 15:00 Intake & Output 12/12/16 12/13/16 12/13/16 18:59 06:59 18:59 Intake Total 480 0 Balance 480 0 Weight 78.925 kg 78.925 kg Intake: Oral 0 Tube Feeding 480 Other: Voiding Method Urinal - Exam In general patient is alert and oriented 3 in no apparent distress HEENT head normocephalic and atraumatic Neck is supple no JVD no goiter no lymphadenopathy Cardiac exam reveals regular heart sounds S1 and S2 no gallops no murmurs Chest exam reveals a few scattered rhonchi bilaterally with decreased respiratory sounds in the right base Abdomen is soft nontender no organomegaly with normal bowel sounds Extremity exam reveals no edema no cyanosis or clubbing Neurological examination reveals no gross deficit - Labs CBC & Chem 7: 12/13/16 10:09 12/13/16 10:09 Labs: Abnormal Lab Results - Last 24 Hours (Table) 12/12/16 12/13/16 12/13/16 Range/Units 17:22 07:29 10:09 Hgb 11.7 L (13.0-17.5) gm/dL Hct 37.8 L (39.0-53.0) % Neutrophils # 10.0 H (1.3-7.7) k/uL Lymphocytes # 0.2 L (1.0-4.8) k/uL Sodium (137-145) mmol/L Chloride (98-107) mmol/L Carbon Dioxide (22-30) mmol/L BUN (9-20) mg/dL POC Glucose (mg/dL) 165 H 145 H (75-99) mg/dL Total Protein (6.3-8.2) g/dL Albumin (3.5-5.0) g/dL 12/13/16 12/13/16 Range/Units 10:09 12:04 Hgb (13.0-17.5) gm/dL Hct (39.0-53.0) % Neutrophils # (1.3-7.7) k/uL Lymphocytes # (1.0-4.8) k/uL Sodium 135 L (137-145) mmol/L Chloride 88 L (98-107) mmol/L Carbon Dioxide 37 H (22-30) mmol/L BUN 72 H (9-20) mg/dL POC Glucose (mg/dL) 144 H (75-99) mg/dL Total Protein 5.6 L (6.3-8.2) g/dL Albumin 2.9 L (3.5-5.0) g/dL Microbiology - Last 24 Hours (Table) 12/07/16 08:00 Blood Culture - Final Blood No Growth after 144 hours 12/07/16 16:18 Gram Stain - Final Sputum Sputum Culture - Preliminary Gram Neg Bacilli Assessment and Plan Plan: 1. Acute hypoxic respiratory failure with oxygen saturation at 60% on room air. Currently on 6 L sating at 95%. Likely secondary to pneumonia and CHF exacerbation. CTA was negative for PE. Did show interstitial edema bilaterally worsening multifocal groundglass opacity particularly central upper lung suggesting worsening edema and/or infiltrate. Pulmonary service and cardiology have been consulted. Continue nebulizer treatments. Patient was started on Levaquin and Zosyn and vancomycin infectious disease following Check sputum culture. 2. Acute CHF exacerbation: BNP elevated at 17,800. Continue IV Lasix. Echo was suboptimal study for assessment of LV function. Repeat echo with contrast was ordered by cardiology 3. Hyponatremia sodium 122 on admission: Sodium up to 130 today. Continue to monitor 4. 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 Elevated troponin on admission no chest pain. Cardiology will be consulted. Troponin 0.110 EKG had shown sinus tachycardia with PVCs heart rate 116 6. Iron deficiency anemia resume iron supplement 7. Essential hypertension: With accelerated hypertension. Catapres patch has been restarted. The patient will be started on Lasix 8. Hypothyroidism continue Synthroid 9. Elevated PSA level around 14 an outpatient setting. Patient is followed up with urology and they're planning to proceed with biopsy of the prostate at the end of November 29. Nutrition: continue patient's tube feedings. dietitian will be consulted 11. Possible PEG tube replacement during this admission. Dr. Richey following 12. Sinus tachycardia: Heart rate in the 120s. Will change nebulizer treatments to Xopenex and Atrovent discontinued the albuterol. 13. Hypertensive emergency: Cardiology has added Norvasc. Blood pressures have shown improvement. Also Lasix dose was adjusted 14. Bilateral pleural effusions pulmonary service following they've ordered chest ultrasound. Patient possibly will need thoracentesis.
[2016-12-13 17:40] LABS: Glucose,Whole Blood 229 mg/dL (75-99)
--- NOTE | 2016-12-13 18:41 | PN ---
DATE OF SERVICE: 12/13/2016 HISTORY OF PRESENT ILLNESS: Patient is a 76-year-old male who initially came in with problems with shortness of breath. His oxygen saturation was down in the 50s. He was told he had bilateral pneumonia. He has a known history of esophageal cancer where he did have chemo and radiation. He recently also had to have PEG tube change-out where he is doing well with this. He states that he is feeling better. He continues with nebulizer treatments, IV steroids and antibiotic therapy. He states that he is still coughing, and it appears to be straw-colored. He states that he is able to get up and walk around. He has been to the bathroom. Denies any nausea, vomiting. He states he is feeling better overall. On physical examination, vital signs show temperature 97.4, heart rate 84, respiratory rate 22, blood pressure 128/57. Oxygen saturation on 6 L is 94%. LABS: WBC is 10.6, hemoglobin 11.7, hematocrit 37.8, platelets 190. Sodium is 135, potassium 3.8, chloride 88, carbon dioxide 37. BUN 72, creatinine 1.25. Glucose 144. Calcium 8.7. Total bilirubin 0.8, AST 28, ALT 33, alkaline phosphatase 55. Total protein 5.6. Albumin 2.9. Sputum is showing Gram-negative bacilli. GENERAL: Patient is a 76-year-old male sitting up in bed. Appears comfortable, in no acute distress at this time. HEENT: Pupils are reactive, mucous membranes moist. NECK: Supple. Trachea is midline. LUNG: Sounds are coarse. He does have some faint wheezes. CARDIOVASCULAR: S1, S2 heard; regular. ABDOMEN: Soft. PEG tube intact. EXTREMITIES: Trace edema. NEUROLOGIC: He is awake, alert. IMPRESSION: 1. Acute on chronic hypoxic respiratory failure, improved. 2. Abnormal CT with pneumonitis versus edema versus atypical pneumonia. 3. Sputum with Gram-negative bacilli, being followed by Infectious Disease. 4. Dysphagia where he has had PEG tube replacement. 5. Known history of esophageal cancer with chemo and radiation. 6. Hyponatremia, improved. 7. Mediastinal lymphadenopathy. 8. Elevated troponins. 9. Mild pulmonary hypertension. 10. Anemia. 11. Elevated PSA where there is questionable prostate cancer. 12. History of tobacco abuse. PLAN: 1. Continue patient with nebulizer treatments as ordered and antibiotics. Continue with IV steroids. Will wean. 2. Continue to titrate oxygen to keep saturations 92% or better. 3. Continue with GI and DVT prophylaxis. Patient should also continue with pulmonary hygiene. He will need a repeat CT scan on an outpatient basis. Increase activity as tolerated. Will continue to closely with you and make further changes as necessary. MTDD
[2016-12-13 20:52] LABS: Glucose,Whole Blood 73 mg/dL (75-99)
--- NOTE | 2016-12-13 22:22 | P.PN ---
Subjective Principal diagnosis: Shortness of breath This is a 76-year-old male who has a significant past history of esophageal cancer status post chemotherapy and radiation therapy with PEG tube in place. Patient is also being worked up for possible prostate cancer. Patient states he was treated in [place] for esophageal cancer. Patient states that 2 weeks ago he started having increased phlegm and he normally is able to suck out the sputum in the morning and evening but he's had increased most recently. 2 days ago he started using oxygen which he normally does not use. 3 weeks ago he was placed on antibiotics which he does not recall the name and completed this course. Despite use of oxygen, patient continued to have significant dyspnea with cough congestion and sputum production. Apparently his pulse ox was 60% and he came into [facility] emergency center for evaluation. He was afebrile but tachycardic and hypertensive. White count is 6.6, and electrolyte abnormalities with hyponatremia and hyperchloremia. Kidney function was within normal limits. Troponin was 0.110. ProBNP was 17,800. Albumin was noted to be 3.3. He underwent a chest x-ray that showed worsening interstitial opacity airspace disease right greater than left. Small to moderate right and small left pleural effusion persist. His d- dimer was elevated at 1.81 and he underwent a CAT scan of the chest that showed no pulmonary embolism. Small to moderate bilateral pleural effusions. Interstitial edema bilaterally with worsening multifocal groundglass opacity of either edema and or infiltrate. Influenza testing a and B were negative. Mycoplasma pneumonia IgG and IgM were negative. Blood cultures status received. Sputum cultures in progress. Echocardiogram has been done without acute change. Respiratory status improved. Now on nasal cannula. Receiving respiratory treatments. Sputum culture is showing some gram negative bacilli. Objective - Vital Signs Vital signs: Vital Signs Temp 97.4 F L 12/13/16 15:00 Pulse 92 12/13/16 20:19 Resp 22 12/13/16 15:47 BP 104/54 12/13/16 19:48 Pulse Ox 92 L 12/13/16 15:00 Intake & Output 12/13/16 12/13/16 12/14/16 06:59 18:59 06:59 Intake Total 480 0 Balance 480 0 Weight 78.925 kg 78.925 kg Intake: Oral 0 Tube Feeding 480 Other: Voiding Method Urinal - Exam Gen: This is a 76-year-old male. He is sitting up in bed and appears to be in no acute distress on nasal canula oxygen. He appears to be comfortable. Speech is difficult to understand. HEENT: Head is atraumatic, normocephalic. Pupils equal, round. Sclerae is anicteric. NECK: Supple. No JVD. No lymphadenopathy. No thyromegaly. LUNGS: Improved air exchange. Expiratory wheezes are still noted. Basilar rhonchi are still heard.. No intercostal retractions. HEART: Regular rate and rhythm. No murmur. ABDOMEN: Soft. Bowel sounds are present. No masses. No tenderness. PEG tube noted to the epigastric area with no signs of drainage, infection, tenderness. EXTREMITIES: No pedal edema. No calf tenderness. Dorsalis pedis +2 bilaterally. NEUROLOGICAL: Patient is awake, alert and oriented x3 - Labs CBC & Chem 7: 12/13/16 10:09 12/13/16 10:09 Labs: Abnormal Lab Results - Last 24 Hours (Table) 12/13/16 12/13/16 12/13/16 Range/Units 07:29 10:09 10:09 Hgb 11.7 L (13.0-17.5) gm/dL Hct 37.8 L (39.0-53.0) % Neutrophils # 10.0 H (1.3-7.7) k/uL Lymphocytes # 0.2 L (1.0-4.8) k/uL Sodium 135 L (137-145) mmol/L Chloride 88 L (98-107) mmol/L Carbon Dioxide 37 H (22-30) mmol/L BUN 72 H (9-20) mg/dL POC Glucose (mg/dL) 145 H (75-99) mg/dL Total Protein 5.6 L (6.3-8.2) g/dL Albumin 2.9 L (3.5-5.0) g/dL 12/13/16 12/13/16 12/13/16 Range/Units 12:04 17:30 20:50 Hgb (13.0-17.5) gm/dL Hct (39.0-53.0) % Neutrophils # (1.3-7.7) k/uL Lymphocytes # (1.0-4.8) k/uL Sodium (137-145) mmol/L Chloride (98-107) mmol/L Carbon Dioxide (22-30) mmol/L BUN (9-20) mg/dL POC Glucose (mg/dL) 144 H 229 H 73 L (75-99) mg/dL Total Protein (6.3-8.2) g/dL Albumin (3.5-5.0) g/dL Microbiology - Last 24 Hours (Table) 12/07/16 08:00 Blood Culture - Final Blood No Growth after 144 hours 12/07/16 16:18 Gram Stain - Final Sputum Sputum Culture - Preliminary Gram Neg Bacilli Laboratory Results WBC 10.6 k/uL (3.8-10.6) 12/13/16 10:09 RBC 4.43 m/uL (4.30-5.90) 12/13/16 10:09 Hgb 11.7 gm/dL (13.0-17.5) L 12/13/16 10:09 Hct 37.8 % (39.0-53.0) L 12/13/16 10:09 MCV 85.4 fL (80.0-100.0) 12/13/16 10:09 MCH 26.5 pg (25.0-35.0) 12/13/16 10:09 MCHC 31.0 g/dL (31.0-37.0) 12/13/16 10:09 RDW 15.3 % (11.5-15.5) 12/13/16 10:09 Plt Count 190 k/uL (150-450) 12/13/16 10:09 Neutrophils % 94 % 12/13/16 10:09 Neutrophils % (Manual) 88.0 % 12/12/16 06:04 Band Neutrophils % 2.0 % 12/12/16 06:04 Lymphocytes % 2 % 12/13/16 10:09 Lymphocytes % (Manual) 4.0 % 12/12/16 06:04 Monocytes % 4 % 12/13/16 10:09 Monocytes % (Manual) 6.0 % 12/12/16 06:04 Eosinophils % 0 % 12/13/16 10:09 Basophils % 0 % 12/13/16 10:09 Neutrophils # 10.0 k/uL (1.3-7.7) H 12/13/16 10:09 Neutrophils # (Manual) 14.2 k/uL (1.3-7.7) H 12/12/16 06:04 Lymphocytes # 0.2 k/uL (1.0-4.8) L 12/13/16 10:09 Lymphocytes # (Manual) 0.6 k/uL (1.0-4.8) L 12/12/16 06:04 Monocytes # 0.4 k/uL (0-1.0) 12/13/16 10:09 Monocytes # (Manual) 0.9 k/uL (0-1.0) 12/12/16 06:04 Eosinophils # 0.0 k/uL (0-0.7) 12/13/16 10:09 Basophils # 0.0 k/uL (0-0.2) 12/13/16 10:09 Nucleated RBCs 0 /100 WBC (0-0) 12/12/16 06:04 Polychromasia Present 12/12/16 06:04 Hypochromasia Marked 12/13/16 10:09 Poikilocytosis Slight 12/09/16 07:22 PT 11.6 sec (9.0-12.0) 12/09/16 07:22 INR 1.2 (<1.1) 12/09/16 07:22 APTT 23.6 sec (22.0-30.0) 12/07/16 08:00 D-Dimer 1.81 mg/L FEU (<0.60) H 12/07/16 08:00 Sodium 135 mmol/L (137-145) L 12/13/16 10:09 Potassium 3.8 mmol/L (3.5-5.1) 12/13/16 10:09 Chloride 88 mmol/L (98-107) L 12/13/16 10:09 Carbon Dioxide 37 mmol/L (22-30) H 12/13/16 10:09 Anion Gap 10 mmol/L 12/13/16 10:09 BUN 72 mg/dL (9-20) H 12/13/16 10:09 Creatinine 1.25 mg/dL (0.66-1.25) 12/13/16 10:09 Est GFR (MDRD) Af Amer >60 (>60 ml/min/1.73 sqM) 12/13/16 10:09 Est GFR (MDRD) Non-Af 56 (>60 ml/min/1.73 sqM) 12/13/16 10:09 Glucose 87 mg/dL (74-99) 12/13/16 10:09 POC Glucose (mg/dL) 73 mg/dL (75-99) L 12/13/16 20:50 POC Glu Curtain Cutter Hand ID 12/13/16 20:[address] Glu mg/dL 111 mg/dL 12/07/16 08:00 Hemoglobin A1c 5.5 % (4.2-6.1) 12/07/16 08:00 Calcium 8.7 mg/dL (8.4-10.2) 12/13/16 10:09 Magnesium 1.9 mg/dL (1.6-2.3) 12/10/16 18:21 Total Bilirubin 0.8 mg/dL (0.2-1.3) 12/13/16 10:09 AST 28 U/L (17-59) 12/13/16 10:09 ALT 33 U/L (21-72) 12/13/16 10:09 Alkaline Phosphatase 55 U/L (38-126) 12/13/16 10:09 Total Creatine Kinase 28 U/L (55-170) L 12/07/16 08:00 CK-MB (CK-2) 1.8 ng/mL (0.0-2.4) 12/07/16 08:00 CK-MB (CK-2) Rel Index 6.4 12/07/16 08:00 Troponin I 0.110 ng/mL (0.000-0.034) H* 12/07/16 08:00 NT-Pro-B Natriuret Pep [id number] pg/mL 12/07/16 08:00 Total Protein 5.6 g/dL (6.3-8.2) L 12/13/16 10:09 Albumin 2.9 g/dL (3.5-5.0) L 12/13/16 10:09 IgE 42.10 IU/mL (0.00-114.00) 12/07/16 08:00 C. difficile (EIA) Intrp Negative (Negative) 12/13/16 18:00 Influenza Type A RNA Not Detected (Not Detectd) 12/07/16 17:30 Influenza Type B (PCR) Not Detected (Not Detectd) 12/07/16 17:30 Urine Legionella Ag Not detected (Not detected) 12/08/16 05:44 Mycoplasma pneumon IgG 0.74 INDEX (<=0.90) 12/07/16 08:00 Mycoplasma pneumon IgM 0.14 INDEX (<=0.90) 12/07/16 08:00 Microbiology 12/07/16 08:00 Blood Blood Culture - Final No Growth after 144 hours 12/07/16 16:18 Sputum Gram Stain - Final 12/07/16 16:18 Sputum Sputum Culture - Preliminary Gram Neg Bacilli Assessment and Plan (1) Pneumonia Status: Acute (2) Aspiration pneumonia Narrative/Plan: 76 year male presents to Hospital with severe shortness of breath. He has a known history of esophageal cancer and is status post chemotherapy and radiation done in [place]. PEG tube is in place for his feeding. Concerns to prostate cancer also noted. For a few weeks having increasing amounts of sputum production and does suction them out himself. He became much more short of breath and Presented Emergency Center. There Is Evidence of Significant Pneumonia. Concerns to Aspiration Pneumonia Because of the Current Situation. Avonex Therapy Is with Piperacillin Tazobactam Levaquin and Vancomycin. Gram- Positive Cocci Being Seen on the Sputum Gram Stain This Will Continue. Concerns to Strep or MRSA. Patient continues improvement. Shortness of breath is improved. On nasal cannula oxygen. Sputum culture showing some gram-negative bacilli. Continue current antibiotic therapy until further culture data is available. Unclear if his discharge plan will be home or to extended care. Will further direct antibiotic therapy as data is available. Status: Acute
[2016-12-13] MEDS: traZODone HCL 100 MG TAB PO PRN (22:34)
[2016-12-13 23:38] LABS: Alternaria tenius IgG 5.8 mcg/mL (< 13.6); Cladosporium herbarium IgG 10.9 mcg/mL (< 14.7); Phoma ssp. IgG 5.3 mcg/mL (< 6.6); Saccaharomospora viridis Not detected (Not detected); Saccaharopoly. rectivirgula Not detected (Not detected)
[2016-12-13 23:57] LABS: Glucose,Whole Blood 121 mg/dL (75-99)
[2016-12-14] MEDS: PIPERACILLIN-TAZOBACTAM 3.375 GM in DEXTROSE/WATER 1 50ML.BAG IVPB SCH ×4 (01:17→23:07)
[2016-12-14] MEDS: LEVOTHYROXINE 75 MCG TAB PO SCH (07:07)
[2016-12-14 07:29] LABS: Glucose,Whole Blood 211 mg/dL (75-99)
[2016-12-14] MEDS: guaiFENesin 600 MG TABLET.ER PO SCH ×2 (08:19→22:19)
[2016-12-14] MEDS: LOSARTAN 25 MG TAB PO SCH (08:19)
[2016-12-14] MEDS: FERROUS SULFATE 325 MG TAB PO SCH (08:19)
[2016-12-14] MEDS: METOPROLOL TARTRATE 12.5 MG TAB PO SCH ×2 (08:19→22:20)
[2016-12-14] MEDS: ENOXAPARIN 40 MG/0.4 ML SYRINGE SQ SCH (08:19)
[2016-12-14] MEDS: ASPIRIN 81 MG CHEW PO SCH (08:19)
[2016-12-14] MEDS: FUROSEMIDE 10 MG/ML 4 ML VIAL IV SCH ×2 (08:19→22:20)
[2016-12-14] MEDS: FLUTICASONE 50MCG/SPRAY NASAL 16GM EA NOSTRIL SCH ×2 (08:20→22:19)
[2016-12-14] MEDS: LEVALBUTEROL NEB (CONC) 1.25 MG/0.5 ML AMP INHALATION SCH ×3 (08:20→20:29)
[2016-12-14] MEDS: IPRATROPIUM 0.5 MG/2.5 ML NEBU INHALATION SCH ×4 (08:20→20:29)
[2016-12-14] MEDS: amLODIPine 5 MG TAB PO SCH (08:20)
[2016-12-14] MEDS: BUDESONIDE 0.5 MG/2 ML NEBU INHALATION SCH ×2 (08:21→20:29)
[2016-12-14] MEDS: INSULIN LISPRO (humaLOG) 300 UNIT/3 ML VIAL SQ SCH ×4 (08:21→22:23)
[2016-12-14] MEDS: methylPREDNISolone SOD SUCCI 40 MG/ML 1 ML VIAL IV SCH ×2 (08:23→22:20)
[2016-12-14 10:03] LABS: Basophils % (A) 0 %; CH 25.6; CHCM 30.7; Eosinophils % (A) 0 %; HCT 37.6 % (39.0-53.0); HDW 2.97; HGB 11.5 gm/dL (13.0-17.5); Hypochromasia Moderate; Luc # (Auto) 0.05; Luc % (Auto) 1; Lymphocytes # (A) 0.2 k/uL (1.0-4.8); Lymphocytes % (A) 2 %; MCH 25.7 pg (25.0-35.0); MCHC 30.7 g/dL (31.0-37.0); MCV 83.8 fL (80.0-100.0); Monocytes # (A) 0.3 k/uL (0-1.0); Monocytes % (A) 3 %; Neutrophils # (A) 9.5 k/uL (1.3-7.7); Neutrophils % (A) 95 %; RBC 4.48 m/uL (4.30-5.90); RDW 15.3 % (11.5-15.5); WBC (Perox) 9.45
[2016-12-14 10:11] LABS: ALT 32 U/L (21-72); AST 26 U/L (17-59); Alkaline Phosphatase 62 U/L (38-126); Anion Gap 9 mmol/L; Blood Urea Nitrogen 77 mg/dL (9-20); Calcium 8.3 mg/dL (8.4-10.2); Carbon Dioxide 38 mmol/L (22-30); Chloride 88 mmol/L (98-107); Glucose 103 mg/dL (74-99); Non-African American GFR(MDRD) >60 (>60 ml/min/1.73 sqM); Potassium 3.6 mmol/L (3.5-5.1); Sodium 135 mmol/L (137-145); Total Bilirubin 0.7 mg/dL (0.2-1.3); Total Protein 5.4 g/dL (6.3-8.2)
[2016-12-14 11:52] LABS: Glucose,Whole Blood 102 mg/dL (75-99)
[2016-12-14] MEDS: LEVOFLOXACIN 750 MG TAB PO SCH (11:52)
[2016-12-14] MEDS: FAMOTIDINE 20 MG TAB PO SCH (11:52)
[2016-12-14] MEDS: MORPHINE SULFATE 2 MG/ML SYRINGE IVP PRN ×2 (13:02→22:39)
--- NOTE | 2016-12-14 13:13 | P.PN ---
Subjective Is a 76-year-old male who presented with shortness of breath and evidence of acute hypoxic respiratory failure with possible pneumonia and CHF exacerbation. He is followed by pulmonary and cardiology and infectious disease. Patient still having some shortness of breath. There is concerns about the bilateral pleural effusions. Case discussed with pulmonary service. Ordering a chest ultrasound and patient will possibly need a nonrebreather. Patient denies any chest pain. Denies any nausea or vomiting. Denies any bowel movement changes or urinary symptoms 12/11/2016 patient is scheduled to have PEG tube exchanged today. Reports improvement in shortness of breath. Patient has been still having sinus tachycardia. Per nursing staff he refused the metoprolol yesterday. Discussed patient the importance of the metoprolol and he is willing to take it. Patient has noted some improvement in his shortness of breath. He denies any chest pain. Denies any nausea or vomiting. Denies any bowel movement changes or urinary symptoms 12/14/2016 patient lying in bed comfortably. Reports improvement in his cough and shortness of breath. Denies any chest pain. Denies any nausea or vomiting. Reports having bowel movements. Has been up and ambulating in hallway. Still requiring 6 L of oxygen satting at 93% Objective - Vital Signs Vital signs: Vital Signs Temp 96.4 F L 12/14/16 07:00 Pulse 80 12/14/16 12:33 Resp 18 12/14/16 11:24 BP 122/57 12/14/16 07:00 Pulse Ox 93 L 12/14/16 08:21 Intake & Output 12/13/16 12/14/16 12/14/16 18:59 06:59 18:59 Intake Total 0 960 Balance 0 960 Weight 78.925 kg 78.2 kg Intake: Oral 0 Tube Feeding 960 Other: Voiding Method Urinal Urinal - Exam Head normocephalic Neck supple Lungs diminished bilaterally Heart regular rate and rhythm S1-S2, no rub or gallop Abdomen is soft nontender nondistended positive bowel sounds no hepatosplenomegaly Extremities no edema Neuro alert and orientated to 3 - Labs CBC & Chem 7: 12/14/16 09:35 12/14/16 09:35 Labs: Abnormal Lab Results - Last 24 Hours (Table) 12/13/16 12/13/16 12/13/16 Range/Units 17:30 20:50 23:53 Hgb (13.0-17.5) gm/dL Hct (39.0-53.0) % MCHC (31.0-37.0) g/dL Neutrophils # (1.3-7.7) k/uL Lymphocytes # (1.0-4.8) k/uL Sodium (137-145) mmol/L Chloride (98-107) mmol/L Carbon Dioxide (22-30) mmol/L BUN (9-20) mg/dL Glucose (74-99) mg/dL POC Glucose (mg/dL) 229 H 73 L 121 H (75-99) mg/dL Calcium (8.4-10.2) mg/dL Total Protein (6.3-8.2) g/dL Albumin (3.5-5.0) g/dL 12/14/16 12/14/16 12/14/16 Range/Units 07:27 09:35 09:35 Hgb 11.5 L (13.0-17.5) gm/dL Hct 37.6 L (39.0-53.0) % MCHC 30.7 L (31.0-37.0) g/dL Neutrophils # 9.5 H (1.3-7.7) k/uL Lymphocytes # 0.2 L (1.0-4.8) k/uL Sodium 135 L (137-145) mmol/L Chloride 88 L (98-107) mmol/L Carbon Dioxide 38 H (22-30) mmol/L BUN 77 H (9-20) mg/dL Glucose 103 H (74-99) mg/dL POC Glucose (mg/dL) 211 H (75-99) mg/dL Calcium 8.3 L (8.4-10.2) mg/dL Total Protein 5.4 L (6.3-8.2) g/dL Albumin 2.7 L (3.5-5.0) g/dL 12/14/16 Range/Units 11:50 Hgb (13.0-17.5) gm/dL Hct (39.0-53.0) % MCHC (31.0-37.0) g/dL Neutrophils # (1.3-7.7) k/uL Lymphocytes # (1.0-4.8) k/uL Sodium (137-145) mmol/L Chloride (98-107) mmol/L Carbon Dioxide (22-30) mmol/L BUN (9-20) mg/dL Glucose (74-99) mg/dL POC Glucose (mg/dL) 102 H (75-99) mg/dL Calcium (8.4-10.2) mg/dL Total Protein (6.3-8.2) g/dL Albumin (3.5-5.0) g/dL Microbiology - Last 24 Hours (Table) 12/07/16 08:00 Blood Culture - Final Blood No Growth after 144 hours Assessment and Plan Plan: 1. Acute hypoxic respiratory failure with oxygen saturation at 60% on room air. Currently on 6 L sating at 95%. Likely secondary to aspiration pneumonia and CHF exacerbation. CTA was negative for PE. Pulmonary service and cardiology have been consulted. Continue nebulizer treatments. Patient was started on Levaquin and Zosyn. Sputum culture growing gram-negative bacilli. Infectious disease following and pulmonary service following. Pulmonary following 2. Acute systolic CHF exacerbation: Repeat echo shows an EF of 40-45% BNP elevated at 17,800. Continue IV Lasix. They have added losartan and metoprolol 3. Hyponatremia sodium 122 on admission: Sodium up to 134. Has improved 4. 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 Elevated troponin on admission no chest pain. Cardiology will be consulted. Troponin 0.110 EKG had shown sinus tachycardia with PVCs heart rate 116 6. Iron deficiency anemia resume iron supplement 7. Essential hypertension: With accelerated hypertension. Catapres patch has been restarted. The patient will be started on Lasix 8. Hypothyroidism continue Synthroid 9. Elevated PSA level around 14 an outpatient setting. Patient is followed up with urology and they're planning to proceed with biopsy of the prostate at the end of November 29. Nutrition: continue patient's tube feedings. dietitian will be consulted 11. Patient scheduled for PEG tube placement today 12. Sinus tachycardia: Heart rate in the 120s. Will change nebulizer treatments to Xopenex and Atrovent discontinued the albuterol. Cardiology added metoprolol discussed with patient the importance to take it. He initially was refusing it 13. Hypertensive emergency: Medications adjusted during this admission. Blood pressures are showing improvement Norvasc, losartan and metoprolol added per cardiology 14. Bilateral pleural effusions too small to proceed with thoracentesis. Pulmonary following GI prophylaxis Pepcid and DVT prophylaxis Lovenox Continue to work with physical therapy
--- NOTE | 2016-12-14 16:16 | PN ---
DATE OF SERVICE: 12/14/2016 HISTORY OF PRESENT ILLNESS: The patient is a 76-year-old male who came in with difficulty with breathing and is being treated for bilateral pneumonia. He has a significant history of esophageal cancer where he had chemo and radiation and recently his PEG tube has been changed. He states he has been up ambulating, he has had bowel movement, he feels like he is doing considerably better. He has been using his incentive spirometer, getting at about 750 mL; still has occasional productive cough; does not seem as bad as yesterday. He has had no nausea or vomiting. No chest pain. On physical examination, vital signs show temperature of 96.4, heart rate 90, respiratory rate 18, blood pressure 122/57, oxygen saturation on 6 L 93%. LABS: WBCs are 10, hemoglobin 11.5, hematocrit 37.6, platelets 152. Sodium is 135, potassium 3.6, chloride 88, carbon dioxide 38. BUN 77, creatinine 1.18. Glucose is 103. Calcium is 8.3. Total bilirubin 0.7, AST 26, ALT 32, alkaline phosphatase 62. Total protein 5.4. Albumin is 2.7. Sputum from 12/07 is showing Gram-negative bacilli. GENERAL: He is a 76-year-old male who appears in no acute distress at this time. HEENT: Pupils reactive, mucous membranes moist. NECK: Supple. Trachea is midline. Lung sounds remain coarse. No significant wheezes posteriorly, though he does have wheezes anteriorly. CARDIOVASCULAR: S1, S2 heard; regular. ABDOMEN: Soft. PEG tube intact. EXTREMITIES: Trace edema. NEUROLOGIC: He is awake, alert. IMPRESSION: 1. Acute on chronic hypoxic respiratory failure, improving. 2. Abnormal CT scan with pneumonitis versus edema versus atypical pneumonia. 3. Sputum with Gram-negative bacilli. 4. Dysphasia where he recently had PEG tube replacement. 5. History of esophageal cancer with chemo and radiation. 6. Hyponatremia. 7. Mediastinal lymphadenopathy. 8. Elevated troponins. 9. Mild pulmonary hypertension. 10. Anemia. 11. Elevated PSA with questionable prostate cancer. 12. History of tobacco abuse. PLAN: Will continue patient on his present medications, continue with nebulizer treatments as ordered. Increase activity as tolerated. Continue with pulmonary hygiene. Patient will require CT scan on an outpatient basis. Attempt to wean down his oxygen. Will continue to follow patient closely with you and make further changes as necessary. ID is following for antibiotics. MTDD
[2016-12-14 17:01] LABS: Glucose,Whole Blood 234 mg/dL (75-99)
[2016-12-14 20:47] LABS: Glucose,Whole Blood 82 mg/dL (75-99)
--- NOTE | 2016-12-14 21:31 | P.PN ---
Subjective Principal diagnosis: Shortness of breath This is a 76-year-old male who has a significant past history of esophageal cancer status post chemotherapy and radiation therapy with PEG tube in place. Patient is also being worked up for possible prostate cancer. Patient states he was treated in [place] for esophageal cancer. Patient states that 2 weeks ago he started having increased phlegm and he normally is able to suck out the sputum in the morning and evening but he's had increased most recently. 2 days ago he started using oxygen which he normally does not use. 3 weeks ago he was placed on antibiotics which he does not recall the name and completed this course. Despite use of oxygen, patient continued to have significant dyspnea with cough congestion and sputum production. Apparently his pulse ox was 60% and he came into [facility] emergency center for evaluation. He was afebrile but tachycardic and hypertensive. White count is 6.6, and electrolyte abnormalities with hyponatremia and hyperchloremia. Kidney function was within normal limits. Troponin was 0.110. ProBNP was 17,800. Albumin was noted to be 3.3. He underwent a chest x-ray that showed worsening interstitial opacity airspace disease right greater than left. Small to moderate right and small left pleural effusion persist. His d- dimer was elevated at 1.81 and he underwent a CAT scan of the chest that showed no pulmonary embolism. Small to moderate bilateral pleural effusions. Interstitial edema bilaterally with worsening multifocal groundglass opacity of either edema and or infiltrate. Influenza testing a and B were negative. Mycoplasma pneumonia IgG and IgM were negative. Blood cultures status received. Sputum cultures in progress. Echocardiogram has been done without acute change. Respiratory status improved. Now on nasal cannula. Receiving respiratory treatments. Sputum culture is showing some gram negative bacilli. Objective - Vital Signs Vital signs: Vital Signs Temp 97.0 F L 12/14/16 15:00 Pulse 88 12/14/16 20:30 Resp 18 12/14/16 15:32 BP 141/60 12/14/16 15:00 Pulse Ox 97 12/14/16 15:00 Intake & Output 12/14/16 12/14/16 12/15/16 06:59 18:59 06:59 Intake Total 960 Balance 960 Weight 78.2 kg Intake: Tube Feeding 960 Other: Voiding Method Urinal - Exam Gen: This is a 76-year-old male. He is sitting up in bed and appears to be in no acute distress on nasal canula oxygen. He appears to be comfortable. Speech is difficult to understand. HEENT: Head is atraumatic, normocephalic. Pupils equal, round. Sclerae is anicteric. NECK: Supple. No JVD. No lymphadenopathy. No thyromegaly. LUNGS: Improved air exchange. Expiratory wheezes are still noted. Basilar rhonchi are still heard.. No intercostal retractions. HEART: Regular rate and rhythm. No murmur. ABDOMEN: Soft. Bowel sounds are present. No masses. No tenderness. PEG tube noted to the epigastric area with no signs of drainage, infection, tenderness. EXTREMITIES: No pedal edema. No calf tenderness. Dorsalis pedis +2 bilaterally. NEUROLOGICAL: Patient is awake, alert and oriented x3 - Labs CBC & Chem 7: 12/14/16 09:35 12/14/16 09:35 Labs: Abnormal Lab Results - Last 24 Hours (Table) 12/13/16 12/14/16 12/14/16 Range/Units 23:53 07:27 09:35 Hgb 11.5 L (13.0-17.5) gm/dL Hct 37.6 L (39.0-53.0) % MCHC 30.7 L (31.0-37.0) g/dL Neutrophils # 9.5 H (1.3-7.7) k/uL Lymphocytes # 0.2 L (1.0-4.8) k/uL Sodium (137-145) mmol/L Chloride (98-107) mmol/L Carbon Dioxide (22-30) mmol/L BUN (9-20) mg/dL Glucose (74-99) mg/dL POC Glucose (mg/dL) 121 H 211 H (75-99) mg/dL Calcium (8.4-10.2) mg/dL Total Protein (6.3-8.2) g/dL Albumin (3.5-5.0) g/dL 12/14/16 12/14/16 12/14/16 Range/Units 09:35 11:50 16:59 Hgb (13.0-17.5) gm/dL Hct (39.0-53.0) % MCHC (31.0-37.0) g/dL Neutrophils # (1.3-7.7) k/uL Lymphocytes # (1.0-4.8) k/uL Sodium 135 L (137-145) mmol/L Chloride 88 L (98-107) mmol/L Carbon Dioxide 38 H (22-30) mmol/L BUN 77 H (9-20) mg/dL Glucose 103 H (74-99) mg/dL POC Glucose (mg/dL) 102 H 234 H (75-99) mg/dL Calcium 8.3 L (8.4-10.2) mg/dL Total Protein 5.4 L (6.3-8.2) g/dL Albumin 2.7 L (3.5-5.0) g/dL Laboratory Results WBC 10.0 k/uL (3.8-10.6) 12/14/16 09:35 RBC 4.48 m/uL (4.30-5.90) 12/14/16 09:35 Hgb 11.5 gm/dL (13.0-17.5) L 12/14/16 09:35 Hct 37.6 % (39.0-53.0) L 12/14/16 09:35 MCV 83.8 fL (80.0-100.0) 12/14/16 09:35 MCH 25.7 pg (25.0-35.0) 12/14/16 09:35 MCHC 30.7 g/dL (31.0-37.0) L 12/14/16 09:35 RDW 15.3 % (11.5-15.5) 12/14/16 09:35 Plt Count 152 k/uL (150-450) 12/14/16 09:35 Neutrophils % 95 % 12/14/16 09:35 Neutrophils % (Manual) 88.0 % 12/12/16 06:04 Band Neutrophils % 2.0 % 12/12/16 06:04 Lymphocytes % 2 % 12/14/16 09:35 Lymphocytes % (Manual) 4.0 % 12/12/16 06:04 Monocytes % 3 % 12/14/16 09:35 Monocytes % (Manual) 6.0 % 12/12/16 06:04 Eosinophils % 0 % 12/14/16 09:35 Basophils % 0 % 12/14/16 09:35 Neutrophils # 9.5 k/uL (1.3-7.7) H 12/14/16 09:35 Neutrophils # (Manual) 14.2 k/uL (1.3-7.7) H 12/12/16 06:04 Lymphocytes # 0.2 k/uL (1.0-4.8) L 12/14/16 09:35 Lymphocytes # (Manual) 0.6 k/uL (1.0-4.8) L 12/12/16 06:04 Monocytes # 0.3 k/uL (0-1.0) 12/14/16 09:35 Monocytes # (Manual) 0.9 k/uL (0-1.0) 12/12/16 06:04 Eosinophils # 0.0 k/uL (0-0.7) 12/14/16 09:35 Basophils # 0.0 k/uL (0-0.2) 12/14/16 09:35 Nucleated RBCs 0 /100 WBC (0-0) 12/12/16 06:04 Polychromasia Present 12/12/16 06:04 Hypochromasia Moderate 12/14/16 09:35 Poikilocytosis Slight 12/09/16 07:22 PT 11.6 sec (9.0-12.0) 12/09/16 07:22 INR 1.2 (<1.1) 12/09/16 07:22 APTT 23.6 sec (22.0-30.0) 12/07/16 08:00 D-Dimer 1.81 mg/L FEU (<0.60) H 12/07/16 08:00 Sodium 135 mmol/L (137-145) L 12/14/16 09:35 Potassium 3.6 mmol/L (3.5-5.1) 12/14/16 09:35 Chloride 88 mmol/L (98-107) L 12/14/16 09:35 Carbon Dioxide 38 mmol/L (22-30) H 12/14/16 09:35 Anion Gap 9 mmol/L 12/14/16 09:35 BUN 77 mg/dL (9-20) H 12/14/16 09:35 Creatinine 1.18 mg/dL (0.66-1.25) 12/14/16 09:35 Est GFR (MDRD) Af Amer >60 (>60 ml/min/1.73 sqM) 12/14/16 09:35 Est GFR (MDRD) Non-Af >60 (>60 ml/min/1.73 sqM) 12/14/16 09:35 Glucose 103 mg/dL (74-99) H 12/14/16 09:35 POC Glucose (mg/dL) 82 mg/dL (75-99) 12/14/16 20:43 POC Glu Grounds Maintenance Supervisor ID Felipa Das 12/14/16 20:[address] Glu mg/dL 111 mg/dL 12/07/16 08:00 Hemoglobin A1c 5.5 % (4.2-6.1) 12/07/16 08:00 Calcium 8.3 mg/dL (8.4-10.2) L 12/14/16 09:35 Magnesium 1.9 mg/dL (1.6-2.3) 12/10/16 18:21 Total Bilirubin 0.7 mg/dL (0.2-1.3) 12/14/16 09:35 AST 26 U/L (17-59) 12/14/16 09:35 ALT 32 U/L (21-72) 12/14/16 09:35 Alkaline Phosphatase 62 U/L (38-126) 12/14/16 09:35 Total Creatine Kinase 28 U/L (55-170) L 12/07/16 08:00 CK-MB (CK-2) 1.8 ng/mL (0.0-2.4) 12/07/16 08:00 CK-MB (CK-2) Rel Index 6.4 12/07/16 08:00 Troponin I 0.110 ng/mL (0.000-0.034) H* 12/07/16 08:00 NT-Pro-B Natriuret Pep 29975 pg/mL 12/07/16 08:00 Total Protein 5.4 g/dL (6.3-8.2) L 12/14/16 09:35 Albumin 2.7 g/dL (3.5-5.0) L 12/14/16 09:35 A. pullulans Allrg IgG 7.4 mcg/mL (< 13.6) 12/07/16 08:00 [place] Droppings IgG TNP 12/07/16 08:00 IgE 42.10 IU/mL (0.00-114.00) 12/07/16 08:00 C. difficile (EIA) Intrp Negative (Negative) 12/13/16 18:00 Influenza Type A RNA Not Detected (Not Detectd) 12/07/16 17:30 Influenza Type B (PCR) Not Detected (Not Detectd) 12/07/16 17:30 Urine Legionella Ag Not detected (Not detected) 12/08/16 05:44 Mycoplasma pneumon IgG 0.74 INDEX (<=0.90) 12/07/16 08:00 Mycoplasma pneumon IgM 0.14 INDEX (<=0.90) 12/07/16 08:00 Saccharo. viridis Ab Not detected (Not detected) 12/07/16 08:00 T. candidus Antibody Not detected (Not detected) 12/07/16 08:00 T. sacchari Antibody Not detected (Not detected) 12/07/16 08:00 T. vulgaris Antibody Not detected (Not detected) 12/07/16 08:00 Alternaria tenuis IgG 5.8 mcg/mL (< 13.6) 12/07/16 08:00 Aspergill fumigatus Ab Not detected (Not detected) 12/07/16 08:00 Cladosporium herbar IgG 10.9 mcg/mL (< 14.7) 12/07/16 08:00 Penicillium notatum IgG 8.4 mcg/mL (< 17.5) 12/07/16 08:00 Phoma species IgG Ab 5.3 mcg/mL (< 6.6) 12/07/16 08:00 Trichoderma viride IgG 4.8 mcg/mL (< 13.4) 12/07/16 08:00 S. rectivirgula Not detected (Not detected) 12/07/16 08:00 Microbiology 12/07/16 08:00 Blood Blood Culture - Final No Growth after 144 hours 12/07/16 16:18 Sputum Gram Stain - Final 12/07/16 16:18 Sputum Sputum Culture - Preliminary Gram Neg Bacilli Assessment and Plan (1) Pneumonia Status: Acute (2) Aspiration pneumonia Narrative/Plan: 76 year male presents to Hospital with severe shortness of breath. He has a known history of esophageal cancer and is status post chemotherapy and radiation done in [place]. PEG tube is in place for his feeding. Concerns to prostate cancer also noted. For a few weeks having increasing amounts of sputum production and does suction them out himself. He became much more short of breath and Presented Emergency Center. There Is Evidence of Significant Pneumonia. Concerns to Aspiration Pneumonia Because of the Current Situation. Avonex Therapy Is with Piperacillin Tazobactam Levaquin and Vancomycin. Gram- Positive Cocci Being Seen on the Sputum Gram Stain This Will Continue. Concerns to Strep or MRSA. Patient continues improvement. Shortness of breath is improved. On nasal cannula oxygen. Sputum culture showing some gram-negative bacilli. Continue current antibiotic therapy until further culture data is available. Potentially will be discharged home . Will further direct antibiotic therapy as data is available. Laboratory still trying to identify the gram-negative bacilli that has been nicely. Hopefully we'll have that back tomorrow so the plans can be finalized. Status: Acute
[2016-12-14] MEDS: traZODone HCL 100 MG TAB PO PRN (23:00)
[2016-12-15] MEDS: LEVOTHYROXINE 75 MCG TAB PO SCH (06:26)
[2016-12-15 06:49] LABS: Glucose,Whole Blood 133 mg/dL (75-99)
[2016-12-15] MEDS: IPRATROPIUM 0.5 MG/2.5 ML NEBU INHALATION SCH ×4 (08:01→19:34)
[2016-12-15] MEDS: BUDESONIDE 0.5 MG/2 ML NEBU INHALATION SCH ×2 (08:02→19:34)
[2016-12-15] MEDS: LEVALBUTEROL NEB (CONC) 1.25 MG/0.5 ML AMP INHALATION SCH ×3 (08:02→19:34)
[2016-12-15] MEDS: amLODIPine 5 MG TAB PO SCH (08:15)
[2016-12-15] MEDS: guaiFENesin 600 MG TABLET.ER PO SCH ×2 (08:15→22:32)
[2016-12-15] MEDS: FERROUS SULFATE 325 MG TAB PO SCH (08:15)
[2016-12-15] MEDS: METOPROLOL TARTRATE 12.5 MG TAB PO SCH ×2 (08:15→22:32)
[2016-12-15] MEDS: LOSARTAN 25 MG TAB PO SCH (08:15)
[2016-12-15] MEDS: FLUTICASONE 50MCG/SPRAY NASAL 16GM EA NOSTRIL SCH ×2 (08:15→22:31)
[2016-12-15] MEDS: ASPIRIN 81 MG CHEW PO SCH (08:15)
[2016-12-15] MEDS: FUROSEMIDE 10 MG/ML 4 ML VIAL IV SCH ×2 (08:16→22:32)
[2016-12-15] MEDS: methylPREDNISolone SOD SUCCI 40 MG/ML 1 ML VIAL IV SCH ×2 (08:16→23:17)
[2016-12-15] MEDS: ENOXAPARIN 40 MG/0.4 ML SYRINGE SQ SCH (08:16)
[2016-12-15] MEDS: INSULIN LISPRO (humaLOG) 300 UNIT/3 ML VIAL SQ SCH ×4 (08:18→23:11)
[2016-12-15] MEDS: PIPERACILLIN-TAZOBACTAM 3.375 GM in DEXTROSE/WATER 1 50ML.BAG IVPB SCH ×2 (08:20→15:20)
[2016-12-15] MEDS: MORPHINE SULFATE 2 MG/ML SYRINGE IVP PRN ×2 (08:26→19:47)
[2016-12-15 08:28] LABS: Basophils % (A) 0 %; CHCM 31.2; Eosinophils % (A) 0 %; HCT 38.9 % (39.0-53.0); HDW 3.08; HGB 12.2 gm/dL (13.0-17.5); Hypochromasia Moderate; Luc # (Auto) 0.04; Luc % (Auto) 0; Lymphocytes # (A) 0.2 k/uL (1.0-4.8); Lymphocytes % (A) 2 %; MCH 26.1 pg (25.0-35.0); MCHC 31.3 g/dL (31.0-37.0); MCV 83.4 fL (80.0-100.0); Mean Platelet Volume 8.3; Monocytes # (A) 0.3 k/uL (0-1.0); Monocytes % (A) 4 %; Neutrophils # (A) 7.8 k/uL (1.3-7.7); Neutrophils % (A) 94 %; RBC 4.67 m/uL (4.30-5.90); RDW 15.2 % (11.5-15.5); WBC 8.3 k/uL (3.8-10.6); WBC (Perox) 8.54
[2016-12-15 08:58] LABS: ALT 32 U/L (21-72); AST 31 U/L (17-59); Alkaline Phosphatase 72 U/L (38-126); Anion Gap 9 mmol/L; Blood Urea Nitrogen 78 mg/dL (9-20); Calcium 8.6 mg/dL (8.4-10.2); Carbon Dioxide 39 mmol/L (22-30); Chloride 87 mmol/L (98-107); Glucose 168 mg/dL (74-99); Non-African American GFR(MDRD) >60 (>60 ml/min/1.73 sqM); Potassium 3.5 mmol/L (3.5-5.1); Sodium 135 mmol/L (137-145); Total Bilirubin 0.8 mg/dL (0.2-1.3); Total Protein 5.7 g/dL (6.3-8.2)
[2016-12-15 11:51] LABS: Glucose,Whole Blood 224 mg/dL (75-99)
[2016-12-15] MEDS: FAMOTIDINE 20 MG TAB PO SCH (12:43)
[2016-12-15] MEDS: LEVOFLOXACIN 750 MG TAB PO SCH (12:43)
--- NOTE | 2016-12-15 13:28 | P.PN ---
Subjective Is a 76-year-old male who presented with shortness of breath and evidence of acute hypoxic respiratory failure with possible pneumonia and CHF exacerbation. He is followed by pulmonary and cardiology and infectious disease. Patient still having some shortness of breath. There is concerns about the bilateral pleural effusions. Case discussed with pulmonary service. Ordering a chest ultrasound and patient will possibly need a nonrebreather. Patient denies any chest pain. Denies any nausea or vomiting. Denies any bowel movement changes or urinary symptoms 12/11/2016 patient is scheduled to have PEG tube exchanged today. Reports improvement in shortness of breath. Patient has been still having sinus tachycardia. Per nursing staff he refused the metoprolol yesterday. Discussed patient the importance of the metoprolol and he is willing to take it. Patient has noted some improvement in his shortness of breath. He denies any chest pain. Denies any nausea or vomiting. Denies any bowel movement changes or urinary symptoms 12/14/2016 patient lying in bed comfortably. Reports improvement in his cough and shortness of breath. Denies any chest pain. Denies any nausea or vomiting. Reports having bowel movements. Has been up and ambulating in hallway. Still requiring 6 L of oxygen satting at 93% 12/15/2016 patient is eager for discharge. He reports he is feeling better has been up and ambulating. However later this afternoon after receiving one of his feedings through the PEG tube he went to ambulate in the hallway. He came back to his room had episode of vomiting. Also slight decrease his oxygen saturation. Currently now on 4 L staying at 97 to 98%. We are still awaiting sputum culture as well. Objective - Vital Signs Vital signs: Vital Signs Temp 96.7 F L 12/15/16 07:00 Pulse 100 12/15/16 11:48 Resp 16 12/15/16 07:00 BP 127/66 12/15/16 07:00 Pulse Ox 98 12/15/16 08:02 Intake & Output 12/14/16 12/15/16 12/15/16 18:59 06:59 18:59 Intake Total 480 Balance 480 Weight 79 kg Intake: Oral 0 Tube Feeding 480 Other: Voiding Method Urinal # Voids 1 # Bowel Movements 0 - Exam Head normocephalic Neck supple Lungs diminished bilaterally Heart regular rate and rhythm S1-S2, no rub or gallop Abdomen is soft nontender nondistended positive bowel sounds no hepatosplenomegaly Extremities no edema Neuro alert and orientated to 3 - Labs CBC & Chem 7: 12/15/16 08:04 12/15/16 08:04 Labs: Abnormal Lab Results - Last 24 Hours (Table) 12/14/16 12/15/16 12/15/16 Range/Units 16:59 06:48 08:04 Hgb 12.2 L (13.0-17.5) gm/dL Hct 38.9 L (39.0-53.0) % Plt Count 139 L (150-450) k/uL Neutrophils # 7.8 H (1.3-7.7) k/uL Lymphocytes # 0.2 L (1.0-4.8) k/uL Sodium (137-145) mmol/L Chloride (98-107) mmol/L Carbon Dioxide (22-30) mmol/L BUN (9-20) mg/dL Glucose (74-99) mg/dL POC Glucose (mg/dL) 234 H 133 H (75-99) mg/dL Total Protein (6.3-8.2) g/dL Albumin (3.5-5.0) g/dL 12/15/16 12/15/16 Range/Units 08:04 11:49 Hgb (13.0-17.5) gm/dL Hct (39.0-53.0) % Plt Count (150-450) k/uL Neutrophils # (1.3-7.7) k/uL Lymphocytes # (1.0-4.8) k/uL Sodium 135 L (137-145) mmol/L Chloride 87 L (98-107) mmol/L Carbon Dioxide 39 H (22-30) mmol/L BUN 78 H (9-20) mg/dL Glucose 168 H (74-99) mg/dL POC Glucose (mg/dL) 224 H (75-99) mg/dL Total Protein 5.7 L (6.3-8.2) g/dL Albumin 2.9 L (3.5-5.0) g/dL Assessment and Plan Plan: 1. Acute hypoxic respiratory failure with oxygen saturation at 60% on room air. Currently on 6 L sating at 95%. Likely secondary to aspiration pneumonia and CHF exacerbation. CTA was negative for PE. Pulmonary service and cardiology have been consulted. Continue nebulizer treatments. Patient was started on Levaquin and Zosyn. Sputum culture growing gram-negative bacilli. Infectious disease following and pulmonary service following. Still awaiting sputum culture final results. Infectious disease is following closely. Repeat chest x-ray 2. Acute systolic CHF exacerbation: Repeat echo shows an EF of 40-45% BNP elevated at 17,800. Continue IV Lasix. They have added losartan and metoprolol 3. Hyponatremia sodium 122 on admission: Sodium up to 134. Has improved 4. 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 Elevated troponin on admission no chest pain. Cardiology will be consulted. Troponin 0.110 EKG had shown sinus tachycardia with PVCs heart rate 116 6. Iron deficiency anemia resume iron supplement 7. Essential hypertension: With accelerated hypertension. Catapres patch has been restarted. The patient will be started on Lasix 8. Hypothyroidism continue Synthroid 9. Elevated PSA level around 14 an outpatient setting. Patient is followed up with urology and they're planning to proceed with biopsy of the prostate at the end of November 29. Nutrition: continue patient's tube feedings. dietitian will be consulted 11. Patient scheduled for PEG tube placement today 12. Sinus tachycardia: Heart rate in the 120s. Will change nebulizer treatments to Xopenex and Atrovent discontinued the albuterol. Cardiology added metoprolol discussed with patient the importance to take it. He initially was refusing it 13. Hypertensive emergency: Medications adjusted during this admission. Blood pressures are showing improvement Norvasc, losartan and metoprolol added per cardiology 14. Bilateral pleural effusions too small to proceed with thoracentesis. Pulmonary following GI prophylaxis Pepcid and DVT prophylaxis Lovenox Continue to work with physical therapy
--- NOTE | 2016-12-15 14:55 | P.PN ---
Subjective Acute hypoxic respiratory failure This is a 76-year-old male patient being seen, examined and evaluated. This patient originally came in with difficulty with breathing and was being treated for bilateral pneumonia. He does has a significant history of esophageal cancer where he had chemo and radiation and recently his PEG tube was changed out. Patient states his breathing is getting better. He is wanting to get out of bed and work with physical therapy. He said his PEG tube exchange went well. He was noted to have some desaturations with ambulation today. The patient also was noted to have an episode of emesis after ambulation. After the patient Back in bed saturations stabilized and the nausea and vomiting subsided. Upon examination the patient's resting up in bed on 4 L of oxygen, which is a decrease from yesterday where he was on 6 L. Denies any productive cough at this time. Objective - Vital Signs Vital signs: Vital Signs Temp 96.7 F L 12/15/16 07:00 Pulse 100 12/15/16 11:48 Resp 16 12/15/16 07:00 BP 127/66 12/15/16 07:00 Pulse Ox 98 12/15/16 08:02 Intake & Output 12/14/16 12/15/16 12/15/16 18:59 06:59 18:59 Intake Total 480 210 Balance 480 210 Weight 79 kg Intake: IV 160 0.9NS @ 20 cc/hr 160 Intake, IV Titration 50 Amount Piperacillin-Tazobactam 3 50 .375 gm In Dextrose/Water 1 50ml.bag @ 12.5 mls/hr IVPB Q8HR [facility] Rx#: [id number] Oral 0 Tube Feeding 480 Other: Voiding Method Urinal # Voids 1 # Bowel Movements 0 - Exam GENERAL EXAM: Alert, active, comfortable in no apparent distress. HEAD: Normocephalic. EYES: Normal reaction of pupils, equal size. NOSE: Clear with pink turbinates. THROAT: No erythema or exudates. NECK: No masses, no JVD. CHEST: No chest wall deformity. LUNGS: Lung sounds noted to be coarse bilaterally no rhonchi or wheezes heard. CVS: S1 and S2 normal with no audible mumurs, regular rhythm. ABDOMEN: No hepatosplenomegaly, normal bowel sounds, no guarding or rigidity. A tube present EXTREMITIES: No edema noted, pedal pulses palpable. SKIN: No rashes CENTRAL NERVOUS SYSTEM: No focal deficits, tone is normal in all 4 extremities. - Labs CBC & Chem 7: 12/15/16 08:04 12/15/16 08:04 Labs: Abnormal Lab Results - Last 24 Hours (Table) 12/14/16 12/15/16 12/15/16 Range/Units 16:59 06:48 08:04 Hgb 12.2 L (13.0-17.5) gm/dL Hct 38.9 L (39.0-53.0) % Plt Count 139 L (150-450) k/uL Neutrophils # 7.8 H (1.3-7.7) k/uL Lymphocytes # 0.2 L (1.0-4.8) k/uL Sodium (137-145) mmol/L Chloride (98-107) mmol/L Carbon Dioxide (22-30) mmol/L BUN (9-20) mg/dL Glucose (74-99) mg/dL POC Glucose (mg/dL) 234 H 133 H (75-99) mg/dL Total Protein (6.3-8.2) g/dL Albumin (3.5-5.0) g/dL 12/15/16 12/15/16 Range/Units 08:04 11:49 Hgb (13.0-17.5) gm/dL Hct (39.0-53.0) % Plt Count (150-450) k/uL Neutrophils # (1.3-7.7) k/uL Lymphocytes # (1.0-4.8) k/uL Sodium 135 L (137-145) mmol/L Chloride 87 L (98-107) mmol/L Carbon Dioxide 39 H (22-30) mmol/L BUN 78 H (9-20) mg/dL Glucose 168 H (74-99) mg/dL POC Glucose (mg/dL) 224 H (75-99) mg/dL Total Protein 5.7 L (6.3-8.2) g/dL Albumin 2.9 L (3.5-5.0) g/dL Assessment and Plan Plan: Assessment Acute on chronic hypoxic respiratory failure, improving Abnormal computed tomography scan with pneumonitis versus edema versus atypical pneumonia Sputum with gram-negative bacilli Dysphasia and recent PEG tube placement History of esophageal cancer with chemo and radiation Hyponatremia improving Mediastinal lymphadenopathy Elevated troponins Mild pulmonary hypertension Anemia History of tobacco abuse Plan Medications have been reviewed and will be continued as ordered. Continue with pulmonary hygiene, coughing and deep breathing exercises, and supportive care. Supplemental oxygen to maintain oxygen saturations of 92% or better. Continue nebulizer treatments. GI and DVT prophylaxis. Infectious disease on consult. Increase activity as tolerated. Continue working with therapy. We will continue to monitor labs/results and adjust treatment as necessary. Further recommendations pending. I performed an examination of the patient and discussed their management with the nurse practitioner. I have reviewed the nurse practitioner's note and agree with the documented findings and plan of care. We are covering for BESSIE Galan's group today.
--- NOTE | 2016-12-15 16:20 | XR ---
EXAMINATION TYPE: XR chest 2V DATE OF EXAM: 12/15/2016 1:56 PM COMPARISON: 12/11/2016 HISTORY: 76-year-old male vomited with shortness of breath, rule out aspiration pneumonia TECHNIQUE: Frontal and lateral views FINDINGS: Heart remains upper limits of normal in size. Atherosclerotic arch calcifications. Some interval rudy dwayne and improvement in aeration within the upper midlungs. Ulnar vasculature remains somewhat promi nent in appearance. Small left and trace right pleural effusions and patchy bibasilar opacities persi st but have also improved from prior. Hyperinflation is noted. IMPRESSION: 1. Overall improvement from 12/11/2016; correlate for residual mild CHF. 2. Small left and trace right pleural effusions with adjacent atelectasis and/or infiltrates also par tially improved from prior.
[2016-12-15 17:05] LABS: Glucose,Whole Blood 110 mg/dL (75-99)
[2016-12-15 20:59] LABS: Glucose,Whole Blood 100 mg/dL (75-99)
[2016-12-15] MEDS: traZODone HCL 100 MG TAB PO PRN (22:32)
[2016-12-15 23:40] VITALS: TEMP 96.6
[2016-12-16] MEDS: PIPERACILLIN-TAZOBACTAM 3.375 GM in DEXTROSE/WATER 1 50ML.BAG IVPB SCH (01:06)
[2016-12-16] MEDS: MORPHINE SULFATE 2 MG/ML SYRINGE IVP PRN (01:57)
[2016-12-16] MEDS ORDERED: EPINEPHrine 10 ML SYRINGE (0.1 MG/ML) ONE ×2 (05:30→06:04)
[2016-12-16] MEDS ORDERED: NOREPINEPHRIN 4 MG-0.9% NS PMX 4 MG/250 ML ML IV ONE (05:59)
[2016-12-16] MEDS ORDERED: ATROPINE SULFATE 0.1 MG/ML 10ML SYRINGE ONE (06:04)
[2016-12-16] MEDS ORDERED: MORPHINE SULFATE 4 MG/ML SYRINGE IV PRN (06:17)
[2016-12-16] MEDS ORDERED: LORazepam 2 MG/ML SYRINGE IV PRN (06:17)
[2016-12-16 06:53] VITALS: BP 32/18; PULSE 94; RESP 37
--- NOTE | 2017-01-25 12:21 | P.DS ---
Providers Date of admission: 12/07/16 09:15 Expected date of discharge: 12/16/16 Attending physician: Cristian Rey Consults: 12/07/16 09:15 Consult Physician Routine Consulting Provider: Ayan Galan Consult Reason/Comments: hypoxia Do you want consulting provider notified?: Yes 12/07/16 15:43 Consult Physician Routine Consulting Provider: Shay Suarez Consult Reason/Comments: pneumonia Do you want consulting provider notified?: Yes 12/07/16 16:02 Consult Physician Routine Consulting Provider: Martinez Richey Consult Reason/Comments: PEG tube, family request, pt known to you Do you want consulting provider notified?: Yes Primary care physician: Abby Bal Hospital Course: Summary Discharge diagnosis Preliminary cause of : Aspiration pneumonia and cardiac pulmonary arrest 1. Acute hypoxic respiratory failure with oxygen saturation at 60% on room air. Currently on 6 L sating at 95%. Likely secondary to aspiration pneumonia and CHF exacerbation. CTA was negative for PE. Pulmonary service and cardiology have been consulted. Continue nebulizer treatments. Patient was started on Levaquin and Zosyn. Sputum culture growing gram-negative bacilli. Infectious disease following and pulmonary service following. Still awaiting sputum culture final results. Infectious disease is following closely. Repeat chest x-ray 2. Acute systolic CHF exacerbation: Repeat echo shows an EF of 40-45% BNP elevated at 17,800. Continue IV Lasix. They have added losartan and metoprolol 3. Hyponatremia sodium 122 on admission: Sodium up to 134. Has improved 4. 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 Elevated troponin on admission no chest pain. Cardiology will be consulted. Troponin 0.110 EKG had shown sinus tachycardia with PVCs heart rate 116 6. Iron deficiency anemia resume iron supplement 7. Essential hypertension: With accelerated hypertension. Catapres patch has been restarted. The patient will be started on Lasix 8. Hypothyroidism continue Synthroid 9. Elevated PSA level around 14 an outpatient setting. Patient is followed up with urology and they're planning to proceed with biopsy of the prostate at the end of November 29. Nutrition: continue patient's tube feedings. dietitian will be consulted 11. Patient had PEG tube replacement during this admission 12. Sinus tachycardia: Heart rate in the 120s. Will change nebulizer treatments to Xopenex and Atrovent discontinued the albuterol. Cardiology added metoprolol discussed with patient the importance to take it. He initially was refusing it 13. Hypertensive emergency: Medications adjusted during this admission. Blood pressures are showing improvement Norvasc, losartan and metoprolol added per cardiology 14. Bilateral pleural effusions too small to proceed with thoracentesis. Pulmonary following 15. Moderate protein calorie malnutrition 16. Cardiopulmonary arrest Hospital course This is a 76-year-old male, patient of Dr. Avina. 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 He also has a history of hypertension hypothyroidism GERD and iron deficiency anemia. Due to his epiglottis cancer patient does require tube feedings and those will be restarted. Patient has had multiple episodes of pneumonia. He's had 8 episodes pneumonia within the last 2 years. Patient was diagnosed with pneumonia on the outpatient setting couple weeks ago he underwent treatment of Cipro for 10 days and then was started on a Z-Andrew. Patient also did require to be placed on home oxygen and this was started yesterday. Initially started with 2 L. However patient's oxygen saturation was down in the around 60%. And she came into the emergency room for further evaluation and treatment. In the emergency room patient's oxygen saturation was 60% on room air. He's currently on 6 L nasal cannula standing and 95%. Chest x-ray had shown worsening patchy airspace disease right greater than the left a small to moderate right pleural effusion. He did have a CTA of the chest which was negative for PE and showed small to moderate-sized pleural effusions bilaterally. Also interstitial edema bilaterally with worsening multifocal groundglass opacity particularly central upper lung suggestive of worsening edema and or infiltrates. Patient has been started on Levaquin and Zosyn for pneumonia. Cardiology and pulmonary service have been consulted. BNP level was elevated at 17,800. Patient reports that his family doctor was going to start him on Lasix outpatient. However he was not able to start that medication. Sodium level of 122 patient reports having low sodium level in the outpatient setting recently. Patient was started on IV Lasix and IV antibiotics. There were concerns about a possible aspiration pneumonia. Patient had a prolonged hospitalization. His PEG tube was replaced. Patient had concerned is some improvement. However he still had episodes of vomiting at times. On 12/16/2016 a cold blue was called on his patient. And he was transferred to the ICU. They had started CPR spontaneous heartbeat resumed. Patient required to be intubated. Family was notified. And they wanted lipase place patient on comfort care. Dr. Iraheta was notified at that time and gave comfort care orders. Therefore patient was placed on comfort care. And he at 6:25 AM on 12/16/2016. Please refer to chart for any further details Please note that I am dictating this report for Dr. Rey. I do not see or examine the patient the day he passed way. Patient Condition at Discharge: Serious Plan - Discharge Summary New Discharge Prescriptions: No Action Ferrous Sulfate [Feosol] 325 mg PO DIRECTED Aspirin EC [Ecotrin Low Dose] 81 mg PO DAILY Ranitidine HCl [Zantac] 75 - 150 mg PO DAILY@1200 traZODone HCL [Desyrel] 100 mg PO HS PRN PRN Reason: SLEEP cloNIDine 0.2 MG/24HR PATCH [Catapres-TTS] 1 patch TRANSDERM MO Levothyroxine Sodium [Synthroid] 150 mcg PO DAILY Discharge Medication List Aspirin EC [Ecotrin Low Dose] 81 mg PO DAILY 12/07/16 [History] Ferrous Sulfate [Feosol] 325 mg PO DIRECTED 12/07/16 [History] Levothyroxine Sodium [Synthroid] 150 mcg PO DAILY 12/07/16 [History] Ranitidine HCl [Zantac] 75 - 150 mg PO DAILY@1200 12/07/16 [History] cloNIDine 0.2 MG/24HR PATCH [Catapres-TTS] 1 patch TRANSDERM MO 12/07/16 [ History] traZODone HCL [Desyrel] 100 mg PO HS PRN 12/07/16 [History] Follow up Appointment(s)/Referral(s): Melodie Ansari DO [Doctor of Osteopathic Medicine] - 1 Week Abby Bal MD [Primary Care Provider] - 1-2 days [facility] Visiting Nurse, [NON-STAFF] - Discharge Disposition: - Preliminary Cause of Preliminary Cause of : Aspiration pneumonia and cardiac pulmonary arrest
== END 2016-12-16 09:25 | disposition expired | DRG 177 ==
LOC: EC 07:20 → 6SEL 09:15 → 4MS4W 12-12 11:50 → 6ICU 12-16 05:44
PROVIDERS: ADMIT Internal Medicine; ATTEND Internal Medicine
PROC: 0D20XUZ Change Feeding Device in Upper Intestinal Tract, External Approach (ICD-10-PCS; 2016-12-11)
PROC: 0DC68ZZ Extirpation of Matter from Stomach, Via Natural or Artificial Opening Endoscopic (ICD-10-PCS; principal; 2016-12-11 10:00)
DX: J69.0 Pneumonitis due to inhalation of food and vomit (principal); J96.21 Acute and chronic respiratory failure with hypoxia; I50.23 Acute on chronic systolic (congestive) heart failure; I47.2 Ventricular tachycardia; E44.0 Moderate protein-calorie malnutrition; I42.9 Cardiomyopathy, unspecified; E87.1 Hypo-osmolality and hyponatremia; K94.23 Gastrostomy malfunction; I16.1 Hypertensive emergency; E87.8 Other disorders of electrolyte and fluid balance, not elsewhere classified; Z66 Do not resuscitate; I11.0 Hypertensive heart disease with heart failure; I27.2 Other secondary pulmonary hypertension; J44.9 Chronic obstructive pulmonary disease, unspecified; R13.10 Dysphagia, unspecified; I49.3 Ventricular premature depolarization; Z99.81 Dependence on supplemental oxygen; E03.9 Hypothyroidism, unspecified; D50.9 Iron deficiency anemia, unspecified; R59.0 Localized enlarged lymph nodes; K21.9 Gastro-esophageal reflux disease without esophagitis; Z68.24 Body mass index [BMI] 24.0-24.9, adult; R97.20 Elevated prostate specific antigen [PSA]; Z92.3 Personal history of irradiation; Z92.21 Personal history of antineoplastic chemotherapy; Z85.21 Personal history of malignant neoplasm of larynx; Z87.01 Personal history of pneumonia (recurrent); Z85.01 Personal history of malignant neoplasm of esophagus; Z88.5 Allergy status to narcotic agent; Z87.891 Personal history of nicotine dependence; Z79.82 Long term (current) use of aspirin; Z79.899 Other long term (current) drug therapy; Y83.3 Surgical operation with formation of external stoma as the cause of abnormal reaction of the patient, or of later complication, without mention of misadventure at the time of the procedure; I46.9 Cardiac arrest, cause unspecified; Z51.5 Encounter for palliative care
CPT/HCPCS: 36415; 43246; 71010; 71020; 71250; 71275; 76604; 80053; 81050; 82088; 82550; 82553; 82785; 83036; 83735; 83880; 83930; 83935; 84132; 84300; 84484; 84588; 85025; 85379; 85610; 85730; 86001; 86606; 86609; 86738; 87040; 87070; 87186; 87205; 87324; 87449; 87502; 93005; 93306; 93308; 94002; 94640; 94760; 96361; 96365; 96375; 99291